=== PATIENT | male | born 1980 | race African-American/Black ===

== ENCOUNTER 2018-06-26 23:41 | Inpatient (IN) | payer OTHER ==
--- NOTE | 2018-06-27 00:04 | PDOC ---
History of Present Illness <Harsha Russell - Last Filed: 06/27/18 03:07> - General History Source: Patient Exam Limitations: No Limitations - History of Present Illness Initial Comments: 06/27/18 01:09 Mr. Ibarra is a 38 yo M with a hx of with a hx of aortic valve replacement (pt states its mechanical on December [address] Kane Inman at [facility]), HTN, seizures, and ESRD on hemodialysis through a catheter since 12/2017 ( missed his dialysis on Wednesday, last done //Wed schedule) presents to the emergency department with generalized aches with fevers and chills since yesterday. He states he has not eaten for 2 days and has had poor PO intake. He is poorly compliant with his HTN medications and ran out of some (unaware of which) without having a primary medical doctor. He missed his appointment for his AV fistula on his right arm. Endorses fever, chills, and generalized fatigue. Denies headaches, recent visual changes, FND, chest pain, SOB, abdominal pain, dysuria, hematuria, diarrhea, nausea, vomiting, and leg pain/ swelling. Allergies: NKDA Meds: labetalol 800 mg every 8 hours, hydralazine 100 mg TID, aspirin 81 mg, and famotidine. The other half of his medications is unknown and doesn't know them. He has been out of hydralazine for "weeks" and last took dilantin "months ago". Social hx: Endorses tobacco use and alcohol. <Dalton Campos - Last Filed: 06/27/18 03:24> - General Chief Complaint: SIRS, Suspected/Possible Stated Complaint: BODYACHES Time Seen by Provider: 06/27/18 00:04 Past History <Harsha Russell - Last Filed: 06/27/18 03:07> - Past Medical History Cardiac Disorders: Yes COPD: No Dialysis: Yes (,,WED) HTN: Yes Psychiatric Problems: Yes (PTSD) Seizures: Yes (epilepsy) - Surgical History Abdominal Surgery: Yes (2 hernia repair) Cardiac Surgery: Yes (VALVE REPLACEMENT) - Immunization History Immunization Up to Date: Yes - Suicide/Smoking/Psychosocial Hx Smoking History: Never smoked Number of Cigarettes Smoked Daily: 3 Hx Alcohol Use: No Drug/Substance Use Hx: No <Dalton Campos - Last Filed: 06/27/18 03:24> - Past Medical History Allergies/Adverse Reactions: Allergies Allergy/AdvReac Type Severity Reaction Status Date / Time No Known Allergies Allergy Verified 06/26/18 23:46 Home Medications: Ambulatory Orders Aspirin [ASA -] 81 mg PO DAILY 10/19/15 Hydrochlorothiazide [Hctz -] 25 mg PO DAILY #7 tablet 10/19/15 Lisinopril 10 mg PO DAILY #7 tablet 10/19/15 Phenytoin Na Extended [Dilantin -] 100 mg PO TID 10/19/15 Famotidine [Pepcid] 20 mg PO DAILY 06/27/18 Ferrous Sulfate [Iron] 325 mg PO 06/27/18 Hydralazine HCl 100 mg PO TID 06/27/18 Labetalol HCl [Normodyne -] 800 mg PO TID 06/27/18 Review of Systems - Review of Systems Able to Perform ROS?: Yes Constitutional: Yes: Chills, Diaphoresis, Fever, Weakness HEENTM: No: Recent change in vision, Ear Pain, Nose Pain, Throat Pain, Mouth Pain Respiratory: No: Cough, Shortness of Breath Cardiac (ROS): No: Chest Pain, Edema, Irregular Heart Rate, Lightheadedness, Palpitations, Syncope, Chest Tightness ABD/GI: No: Abd. Pain w/ defecation, Constipated, Diarrhea, Nausea, Rectal Bleeding, Vomiting, Tarry Stools : No: Burning, Dysuria, Flank Pain, Hematuria Musculoskeletal: No: Back Pain, Joint Pain, Neck Pain Integumentary: No: Bruising, Rash Neurological: Yes: Weakness. No: Headache, Numbness, Paresthesia, Tingling, Tremors, Ataxia, Dizziness Psychiatric: No: Stressors Endocrine: No: Increased Hunger Hematologic/Lymphatic: No: Anemia <Dalton Campos - Last Filed: 06/27/18 03:24> *Physical Exam - Vital Signs Last Vital Signs Temp Pulse Resp BP Pulse Ox 99.5 F 93 H 20 159/102 99 06/27/18 03:00 06/27/18 03:00 06/27/18 03:00 06/27/18 03:00 06/27/18 03:00 <Harsha Russell - Last Filed: 06/27/18 03:07> - Vital Signs Last Vital Signs Temp Pulse Resp BP Pulse Ox 99.3 F 94 H 18 189/124 100 06/26/18 23:42 06/26/18 23:42 06/26/18 23:42 06/26/18 23:42 06/26/18 23:42 - Physical Exam General Appearance: Yes: Nourished, Appropriately Dressed, Mild Distress HEENT: positive: EOMI, DAVID, Normal Voice, Symmetrical Neck: positive: Trachea midline. negative: Lymphadenopathy (R), Lymphadenopathy (L) Respiratory/Chest: positive: Lungs Clear, Normal Breath Sounds, Other (Has a surgical scar consistent with recent thoracotomy. Has a catheter inb the right upper chest for HD). negative: Chest Tender, Respiratory Distress, Accessory Muscle Use Cardiovascular: positive: Regular Rhythm, Regular Rate, S1, S2. negative: Systolic Murmur Vascular Pulses: Dorsalis-Pedis (R): 3+, Doralis-Pedis (L): 3+ Gastrointestinal/Abdominal: positive: Normal Bowel Sounds, Tender (diffusely tender) Lymphatic: negative: Adenopathy Musculoskeletal: positive: Normal Inspection. negative: CVA Tenderness Extremity: positive: Normal Capillary Refill, Normal Inspection, Normal Range of Motion. negative: Tender Integumentary: positive: Normal Color, Dry, Warm Neurologic: positive: lieutenant governor II-XII NML intact, Fully Oriented, Alert, Normal Mood/ Affect, Normal Response, Motor Strength 5/5 <Dalton Campos - Last Filed: 06/27/18 03:24> Heart Score/ECG Review - ECG Intrepretation Comment:: 06/27/18 02:12 ventricular rate is 91 bpm, SD is 126 ms, QRS 86 MS, qtC IS 479 MS. NORMAL sinus rhythm. t wave inversion V5-6 not changed from previous. Suspected LVH. <Dalton Campos - Last Filed: 06/27/18 03:24> ED Treatment Course - LABORATORY CBC & Chemistry Diagram: 06/27/18 00:40 06/27/18 01:22 - ADDITIONAL ORDERS Additional order review: Laboratory Results 06/27/18 06/27/18 06/27/18 01:49 01:22 01:22 PT with INR INR PTT (Actin FS) VBG pH POC VBG pCO2 POC VBG pO2 Mixed VBG HCO3 Sodium 138 Potassium 4.6 Chloride 103 Carbon Dioxide 24 Anion Gap 11 BUN 26 H Creatinine 3.8 H Creat Clearance w eGFR 18.11 Random Glucose 108 H Lactic Acid Calcium 8.2 L Total Bilirubin 1.2 H AST 15 ALT 12 L Alkaline Phosphatase 101 Creatine Kinase 94 Troponin I 0.03 C-Reactive Protein 12.1 H Total Protein 7.5 Albumin 3.1 L Urine Color Urine Appearance Urine pH Ur Specific Spring Urine Protein Urine Glucose (UA) Urine Ketones Urine Blood Urine Nitrite Urine Bilirubin Urine Urobilinogen Ur Leukocyte Esterase Urine WBC (Auto) Urine RBC (Auto) Ur Epithelial Cells Urine Bacteria Granular Casts Urine Mucus Urine Yeast Phenytoin 0.8 L Blood Type Antibody Screen 06/27/18 06/27/18 06/27/18 00:40 00:40 00:40 PT with INR INR PTT (Actin FS) VBG pH POC VBG pCO2 POC VBG pO2 Mixed VBG HCO3 Sodium Cancelled Potassium Cancelled Chloride Cancelled Carbon Dioxide Cancelled Anion Gap Cancelled BUN Cancelled Creatinine Cancelled Creat Clearance w eGFR Cancelled Random Glucose Cancelled Lactic Acid Calcium Cancelled Total Bilirubin Cancelled AST Cancelled ALT Cancelled Alkaline Phosphatase Cancelled Creatine Kinase Troponin I Cancelled C-Reactive Protein Total Protein Cancelled Albumin Cancelled Urine Color Urine Appearance Urine pH Ur Specific Spring Urine Protein Urine Glucose (UA) Urine Ketones Urine Blood Urine Nitrite Urine Bilirubin Urine Urobilinogen Ur Leukocyte Esterase Urine WBC (Auto) Urine RBC (Auto) Ur Epithelial Cells Urine Bacteria Granular Casts Urine Mucus Urine Yeast Phenytoin Blood Type O POSITIVE Antibody Screen Negative 06/27/18 06/27/18 06/27/18 00:40 00:30 00:30 PT with INR 13.50 H INR 1.19 H PTT (Actin FS) 33.6 VBG pH 7.52 H POC VBG pCO2 27.4 L POC VBG pO2 36.7 Mixed VBG HCO3 22.4 Sodium Potassium Chloride Carbon Dioxide Anion Gap BUN Creatinine Creat Clearance w eGFR Random Glucose Lactic Acid 1.3 Calcium Total Bilirubin AST ALT Alkaline Phosphatase Creatine Kinase Troponin I C-Reactive Protein Total Protein Albumin Urine Color Urine Appearance Urine pH Ur Specific Spring Urine Protein Urine Glucose (UA) Urine Ketones Urine Blood Urine Nitrite Urine Bilirubin Urine Urobilinogen Ur Leukocyte Esterase Urine WBC (Auto) Urine RBC (Auto) Ur Epithelial Cells Urine Bacteria Granular Casts Urine Mucus Urine Yeast Phenytoin Blood Type Antibody Screen 06/27/18 00:30 PT with INR INR PTT (Actin FS) VBG pH POC VBG pCO2 POC VBG pO2 Mixed VBG HCO3 Sodium Potassium Chloride Carbon Dioxide Anion Gap BUN Creatinine Creat Clearance w eGFR Random Glucose Lactic Acid Calcium Total Bilirubin AST ALT Alkaline Phosphatase Creatine Kinase Troponin I C-Reactive Protein Total Protein Albumin Urine Color Emily Urine Appearance Cloudy Urine pH 5.0 Ur Specific Spring 1.023 Urine Protein 2+ H Urine Glucose (UA) Negative Urine Ketones Trace H Urine Blood 2+ H Urine Nitrite Negative Urine Bilirubin Negative Urine Urobilinogen 2.0 Ur Leukocyte Esterase Negative Urine WBC (Auto) 3 Urine RBC (Auto) 14 Ur Epithelial Cells Rare Urine Bacteria Rare Granular Casts 23 Urine Mucus Rare Urine Yeast Few Phenytoin Blood Type Antibody Screen 06/27/18 00:40 RBC 4.17 MCV 90.1 MCHC 33.1 RDW 16.2 H MPV 8.1 Neutrophils % 87.4 H Lymphocytes % 5.5 L D Monocytes % 6.6 Eosinophils % 0.1 Basophils % 0.4 - Medications Given in the ED: ED Medications Discontinued Medications Generic Name Dose Route Start Last Admin Trade Name Leiq PRN Reason Stop Dose Admin Hydralazine HCl 25 mg 06/27/18 01:05 06/27/18 01:32 Apresoline - PO 06/27/18 01:06 25 mg ONCE ONE Administration Sodium Chloride 1,000 mls @ 1,000 mls/hr 06/27/18 00:14 06/27/18 01:09 Normal Saline - IV 06/27/18 01:13 1,000 mls/hr ASDIR STA Administration Labetalol HCl 10 mg 06/27/18 01:05 06/27/18 01:32 Normodyne Injection - IVPUSH 06/27/18 01:06 10 mg ONCE ONE Administration <Harsha Russell - Last Filed: 06/27/18 03:07> - LABORATORY CBC & Chemistry Diagram: 06/27/18 00:40 06/27/18 01:22 <Dalton Campos - Last Filed: 06/27/18 03:24> Medical Decision Making - Medical Decision Making 38 yo M with extensive medical hx presents with generalized aches and fever ddx: sepsis, ACS, CHF exacerbation, metabolic disturbance, PNA, pleuritis, pericarditis Initial vitals: Initial Vital Signs Temp Pulse Resp BP Pulse Ox 99.3 F 94 H 18 189/124 100 06/26/18 23:42 06/26/18 23:42 06/26/18 23:42 06/26/18 23:42 06/26/18 23:42 Work up: Laboratory Tests 06/27/18 06/27/18 06/27/18 00:30 00:30 00:30 WBC RBC Hgb Hct MCV MCH MCHC RDW Plt Count MPV Absolute Neuts (auto) Neutrophils % Lymphocytes % Monocytes % Eosinophils % Basophils % Nucleated RBC % ESR PT with INR INR PTT (Actin FS) VBG pH 7.52 H POC VBG pCO2 27.4 L POC VBG pO2 36.7 Mixed VBG HCO3 22.4 Sodium Potassium Chloride Carbon Dioxide Anion Gap BUN Creatinine Creat Clearance w eGFR Random Glucose Lactic Acid 1.3 Calcium Total Bilirubin AST ALT Alkaline Phosphatase Creatine Kinase Troponin I C-Reactive Protein Total Protein Albumin Urine Color Emily Urine Appearance Cloudy Urine pH 5.0 Ur Specific Spring 1.023 Urine Protein 2+ H Urine Glucose (UA) Negative Urine Ketones Trace H Urine Blood 2+ H Urine Nitrite Negative Urine Bilirubin Negative Urine Urobilinogen 2.0 Ur Leukocyte Esterase Negative Urine WBC (Auto) 3 Urine RBC (Auto) 14 Ur Epithelial Cells Rare Urine Bacteria Rare Granular Casts 23 Urine Mucus Rare Urine Yeast Few Phenytoin Blood Type Antibody Screen 06/27/18 06/27/18 06/27/18 00:40 00:40 00:40 WBC 11.6 H RBC 4.17 Hgb 12.5 Hct 37.6 D MCV 90.1 MCH 29.9 MCHC 33.1 RDW 16.2 H Plt Count 224 MPV 8.1 Absolute Neuts (auto) 10.1 H Neutrophils % 87.4 H Lymphocytes % 5.5 L D Monocytes % 6.6 Eosinophils % 0.1 Basophils % 0.4 Nucleated RBC % 0 ESR PT with INR 13.50 H INR 1.19 H PTT (Actin FS) 33.6 VBG pH POC VBG pCO2 POC VBG pO2 Mixed VBG HCO3 Sodium Cancelled Potassium Cancelled Chloride Cancelled Carbon Dioxide Cancelled Anion Gap Cancelled BUN Cancelled Creatinine Cancelled Creat Clearance w eGFR Cancelled Random Glucose Cancelled Lactic Acid Calcium Cancelled Total Bilirubin Cancelled AST Cancelled ALT Cancelled Alkaline Phosphatase Cancelled Creatine Kinase Troponin I C-Reactive Protein Total Protein Cancelled Albumin Cancelled Urine Color Urine Appearance Urine pH Ur Specific Spring Urine Protein Urine Glucose (UA) Urine Ketones Urine Blood Urine Nitrite Urine Bilirubin Urine Urobilinogen Ur Leukocyte Esterase Urine WBC (Auto) Urine RBC (Auto) Ur Epithelial Cells Urine Bacteria Granular Casts Urine Mucus Urine Yeast Phenytoin Blood Type Antibody Screen 06/27/18 06/27/18 06/27/18 00:40 00:40 01:22 WBC RBC Hgb Hct MCV MCH MCHC RDW Plt Count MPV Absolute Neuts (auto) Neutrophils % Lymphocytes % Monocytes % Eosinophils % Basophils % Nucleated RBC % ESR PT with INR INR PTT (Actin FS) VBG pH POC VBG pCO2 POC VBG pO2 Mixed VBG HCO3 Sodium Potassium Chloride Carbon Dioxide Anion Gap BUN Creatinine Creat Clearance w eGFR Random Glucose Lactic Acid Calcium Total Bilirubin AST ALT Alkaline Phosphatase Creatine Kinase Troponin I Cancelled C-Reactive Protein Total Protein Albumin Urine Color Urine Appearance Urine pH Ur Specific Spring Urine Protein Urine Glucose (UA) Urine Ketones Urine Blood Urine Nitrite Urine Bilirubin Urine Urobilinogen Ur Leukocyte Esterase Urine WBC (Auto) Urine RBC (Auto) Ur Epithelial Cells Urine Bacteria Granular Casts Urine Mucus Urine Yeast Phenytoin 0.8 L Blood Type O POSITIVE Antibody Screen Negative 06/27/18 06/27/18 06/27/18 01:22 01:22 01:49 WBC RBC Hgb Hct MCV MCH MCHC RDW Plt Count MPV Absolute Neuts (auto) Neutrophils % Lymphocytes % Monocytes % Eosinophils % Basophils % Nucleated RBC % ESR 58 H PT with INR INR PTT (Actin FS) VBG pH POC VBG pCO2 POC VBG pO2 Mixed VBG HCO3 Sodium 138 Potassium 4.6 Chloride 103 Carbon Dioxide 24 Anion Gap 11 BUN 26 H Creatinine 3.8 H Creat Clearance w eGFR 18.11 Random Glucose 108 H Lactic Acid Calcium 8.2 L Total Bilirubin 1.2 H AST 15 ALT 12 L Alkaline Phosphatase 101 Creatine Kinase 94 Troponin I 0.03 C-Reactive Protein 12.1 H Total Protein 7.5 Albumin 3.1 L Urine Color Urine Appearance Urine pH Ur Specific Spring Urine Protein Urine Glucose (UA) Urine Ketones Urine Blood Urine Nitrite Urine Bilirubin Urine Urobilinogen Ur Leukocyte Esterase Urine WBC (Auto) Urine RBC (Auto) Ur Epithelial Cells Urine Bacteria Granular Casts Urine Mucus Urine Yeast Phenytoin Blood Type Antibody Screen CXR shows no acute pathologies. Presence of sternotomy wires and no mechanical valve present on CXR. Likely received bovine valve. BP after admin of 10 mg of labetolol IV and 25 mg PO hydralazine was 166/96. 800 mg of labetolol PO was ordered which is part of his home dose. Labs are within normal limits except for the elevated creatinine and mildly elevated WBC. Transferred care to Dr. Russell <Dalton Campos - Last Filed: 06/27/18 03:24> *DC/Admit/Observation/Transfer - Discharge Dispostion Decision to Admit order: Yes <Harsha Russell - Last Filed: 06/27/18 03:07> <Dalton Campos - Last Filed: 06/27/18 03:24> Diagnosis at time of Disposition: Generalized weakness, Sepsis, Catheter-related bloodstream infection - Discharge Dispostion Condition at time of disposition: Guarded
[2018-06-27] MEDS ORDERED: SODIUM CHLORIDE 1,000 ML IV STA (00:14)
--- NOTE | 2018-06-27 00:39 | PDOC ---
Attending Attestation - Resident Resident Name: BethDalton - ED Attending Attestation I have performed the following: I have examined & evaluated the patient, The case was reviewed & discussed with the resident, I agree w/resident's findings & plan, Exceptions are as noted - HPI HPI: 06/27/18 00:34 38 yo male p/w complaint of fever and bodyaches -pt is a poor historian when it comes to his medical history and does not know all the medications he takes. He states he does not take any blood thinners He has a significant history of heart valve replacement with mechanical ?? valve ( they think it was the aortic valve done December 31 this year. He started dialysis for kidney failure also at that time. -he has h/o HTN for many years and has not been complaint with his medications. He also skipped his dialysis this Wednesday06/27/18 00:41 06/27/18 00:52 06/27/18 00:54 06/27/18 01:51 06/27/18 02:08 - Physicial Exam PE: 06/27/18 00:39 slender 38 yo male stating he hurts all over head ncat eyes sallie eomi neck supple lungs no crackles no rales appreciated chest left upper chest is dialysis port [facility] [id number] ,there is no appreciable murmer or click heard abd no rebound ext no edema neuro ambulatory, alert and conversant 06/27/18 00:55 06/27/18 00:56 - Medical Decision Making 06/27/18 02:03 ekg nsr !91 bpm, st and t wave abn with inverted t waves in V5,V6 neg troponin cbc mild leukocytosis,no anemia chemistries cr=3.8 , normal potassium cxr sternotomy wires, no mechanical valve seen BP came down to 166/96 and his oral temperature is 101.2 06/27/18 02:19 06/27/18 02:22
[2018-06-27 00:43] LABS: VENOUS PC02 27.4 mmHg (38-52); VENOUS PH 7.52 (7.32-7.42); VENOUS PO2 36.7 mmHg (28-48)
[2018-06-27 00:45] LABS: BASO % 0.4 % (0-2.0); EOS % 0.1 % (0-4.5); HEMATOCRIT 37.6 % (35.4-49); HEMOGLOBIN 12.5 GM/dL (11.7-16.9); LYMPH % 5.5 % (8-40); MCH 29.9 pg (25.7-33.7); MCHC 33.1 g/dl (32.0-35.9); MEAN CELL VOLUME 90.1 fl (80-96); MEAN PLT VOLUME 8.1 fl (7.5-11.1); MONO % 6.6 % (3.8-10.2); NEUT % 87.4 % (42.8-82.8); PLATELET COUNT 224 K/MM3 (134-434); RBC 4.17 M/mm3 (4.00-5.60); RDW 16.2 % (11.9-15.9); WHITE BLOOD COUNT 11.6 K/mm3 (4.0-10.0)
[2018-06-27 00:57] LABS: INR 1.19 (0.83-1.09); PROTHROMBIN TIME (PATIENT) 13.5 SEC (9.7-13.0)
[2018-06-27 00:57] LABS: URINE APPEARANCE CLOUDY; URINE BILIRUBIN NEGATIVE (<2.0 mg/dL); URINE COLOR AMBER; URINE GLUCOSE (UA) NEGATIVE (NEGATIVE); URINE KETONE TRACE (NEGATIVE); URINE LEUK ESTERASE NEGATIVE (NEGATIVE); URINE NITRITE NEGATIVE (NEGATIVE)
[2018-06-27 00:58] LABS: URINE PROTEIN 2+ (NEGATIVE)
[2018-06-27 00:59] LABS: EPI CELLS RARE /HPF (FEW); GRANULAR CASTS 23 /lpf; URINE BACTERIA RARE /hpf (NONE SEEN); URINE MUCUS RARE; YEAST FEW
[2018-06-27 01:00] LABS: ACTIVATED PTT 33.6 SECONDS (25.2-36.5)
[2018-06-27] MEDS ORDERED: LABETALOL HCL 5 MG/1 ML (100MG/20 ML VIAL) IVPUSH ONE (01:05)
[2018-06-27] MEDS ORDERED: hydrALAZINE HCL 25 MG TABLET (FP) PO ONE (01:05)
[2018-06-27] MEDS ORDERED: LABETALOL HCL 5 MG/1 ML (200MG/40ML VIAL) IVPB ONE (01:13)
[2018-06-27] MEDS ORDERED: hydrALAZINE HCL 25 MG TABLET (FP) ONE (01:13)
[2018-06-27 01:55] LABS: ALBUMIN 3.1 g/dl (3.4-5.0); ANION GAP 11 MMOL/L (8-16); BILIRUBIN,TOTAL 1.2 mg/dL (0.2-1.0); BLOOD UREA NITROGEN 26 mg/dL (7-18); CALCIUM 8.2 mg/dL (8.5-10.1); CHLORIDE 103 mmol/L (98-107); CO2 24 mmol/L (21-32); CREATININE 3.8 mg/dL (0.55-1.3); GLUCOSE,RANDOM 108 mg/dL (74-106); POTASSIUM 4.6 mmol/L (3.5-5.1); SGOT/AST 15 U/L (15-37); SGPT/ALT 12 U/L (13-61); SODIUM 138 mmol/L (136-145); TOT PROT 7.5 g/dl (6.4-8.2)
[2018-06-27] MEDS ORDERED: NITROGLYCERIN 2% OINTMENT - 1GM PACKET TD ONE (01:57)
[2018-06-27 01:58] LABS: ALK PHOS 101 U/L (45-117)
[2018-06-27] MEDS ORDERED: LABETALOL HCL 200 MG TABLET (FP) PO ONE ×2 (02:00→06:31)
[2018-06-27] MEDS ORDERED: VANCOMYCIN 1,000 MG in DEXTROSE 5%-WATER - 250 ML IVPB ONE (02:25)
[2018-06-27] MEDS ORDERED: PIPERACILLIN/TAZOB 4.5 GM 4.5 GM in DEXTROSE 5%-WATER 100 ML IVPB ONE (02:30)
[2018-06-27] MEDS ORDERED: ACETAMINOPHEN 1000 MG/100 ML VIAL (NON FORMULARY) IVPB ONE (02:37)
--- NOTE | 2018-06-27 02:37 | PN ---
Teaching Attending Note Name of Resident: Donte Marr ATTENDING PHYSICIAN STATEMENT I saw and evaluated the patient. I reviewed the resident's note and discussed the case with the resident. I agree with the resident's findings and plan as documented. SUBJECTIVE: Patient is a 38 year old man with PMH of aortic valve replacement, HTN, epilepsy , PTSD, tobacco use, and ESRD on hemodialysis through a catheter since 12/2017 ( missed his dialysis on Wednesday) presents to the ER with generalized aches, fevers and chills since yesterday. He states he has not eaten for 2 days and has had poor PO intake. He is poorly compliant with his HTN medications and ran out of some (unaware of which) and does not have a PCP. He missed his appointment for his AV fistula on his right arm. has not filled his prescriptions due to problems with his "insurance card". Denies headaches, photophobia, chest pain, SOB, abdominal pain, dysuria, diarrhea, nausea, or vomiting. OBJECTIVE: Alert and restless with generalized aches Vital Signs Period Temp Pulse Resp BP Sys/[place] Pulse Ox Last 24 Hr 99.3 F-101.2 F 94-99 17-22 166-217/96-130 100-100 HEENT: No Jaundice, eye redness or discharge, PERRLA, EOMI. Normocephalic, atraumatic. External ears are normal and hearing is grossly intact. No nasal discharge. Neck: Supple, no neck stiffness, nontender. No palpable adenopathy or thyromegaly. No JVD Chest: Good effort. Midline scar. Right chest permacath. Clear to auscultation and percussion. Heart: Regular. No S3 or rub; 2/6 MARCELINA Abdomen: Not distended, soft, nontender and no HSM. No rebound or guarding. Normoactive bowel sounds. Ext: Peripheral pulses intact. No leg edema. Skin: Warm and dry. No petechiae, rash or ecchymosis. Neuro: Alert. Oriented x3. CN 2-12 grossly intact. Sensation grossly intact in all four extremities and DTR are symmetric. Current Medications Generic Name Dose Route Start Last Admin Trade Name Freq PRN Reason Stop Dose Admin Vancomycin HCl 1,000 mg/ 250 mls @ 166.667 mls/hr 06/27/18 02:25 Dextrose IVPB 06/27/18 03:54 ONCE ONE Protocol Piperacillin Sod/Tazobactam 100 mls @ 200 mls/hr 06/27/18 02:30 Sod 4.5 gm/ Dextrose IVPB 06/27/18 02:59 ONCE ONE Protocol Home Medications Medication Instructions Recorded Aspirin [ASA -] 81 mg PO DAILY 10/19/15 Hydrochlorothiazide [Hctz -] 25 mg PO DAILY #7 tablet 10/19/15 Lisinopril 10 mg PO DAILY #7 tablet 10/19/15 Phenytoin Na Extended [Dilantin -] 100 mg PO TID 10/19/15 Famotidine [Pepcid] 20 mg PO DAILY 06/27/18 Ferrous Sulfate [Iron] 325 mg PO 06/27/18 Hydralazine HCl 100 mg PO TID 06/27/18 Labetalol HCl [Normodyne -] 800 mg PO TID 06/27/18 Abnormal Lab Results 06/27/18 06/27/18 06/27/18 00:30 00:30 00:40 WBC 11.6 H RDW 16.2 H Absolute Neuts (auto) 10.1 H Neutrophils % 87.4 H Lymphocytes % 5.5 L D PT with INR INR VBG pH 7.52 H POC VBG pCO2 27.4 L BUN Creatinine Random Glucose Calcium Total Bilirubin ALT C-Reactive Protein Albumin Urine Protein 2+ H Urine Ketones Trace H Urine Blood 2+ H Phenytoin 06/27/18 06/27/18 06/27/18 00:40 01:22 01:22 WBC RDW Absolute Neuts (auto) Neutrophils % Lymphocytes % PT with INR 13.50 H INR 1.19 H VBG pH POC VBG pCO2 BUN 26 H Creatinine 3.8 H Random Glucose 108 H Calcium 8.2 L Total Bilirubin 1.2 H ALT 12 L C-Reactive Protein Albumin 3.1 L Urine Protein Urine Ketones Urine Blood Phenytoin 0.8 L 06/27/18 01:49 WBC RDW Absolute Neuts (auto) Neutrophils % Lymphocytes % PT with INR INR VBG pH POC VBG pCO2 BUN Creatinine Random Glucose Calcium Total Bilirubin ALT C-Reactive Protein 12.1 H Albumin Urine Protein Urine Ketones Urine Blood Phenytoin ASSESSMENT AND PLAN: 1. ESRD with sepsis - Most likely due to hemodialysis catheter infection. Sepsis workup done. Started on IV vancomycin and zosyn. Will remove dialysis catheter immediately to avoid infecting his heart valve. Get ECHO to look for vegetations. Restart his oral antihypertensive drugs and ensure adequate dialysis fluid removal to address poorly controlled hypertension. DC HCTZ. Load with dilantin to optimize dilantin level. Get urine toxicology. Consult Nephrology and Vascular surgery. When stable, consider work up for secondary hypertension. Also reassess him to ascertain whether he is indeed stage 4 or 5 CKD - is he really in ESRD and does he need to be on dialysis?. Because, he is very muscular and his baseline creatinine "should" be higher - but even with history of missed hemodialysis treatments and inefficient catheter dialysis he is not severely acidotic (HCO3 24) and his HCT is great (37). 2. Tobacco Use We will provide patient all the necessary assistance to facilitate smoking cessation and prescribe Nicotine patch. 3. DVT prophylaxis - Heparin 5000u sq tid. 4. Advance directives - Full code
[2018-06-27] MEDS ORDERED: VANCOMYCIN 1 GRAM (PRE-DOCKED) 1,000 MG/250 ML BAG IVPB ONE ×2 (02:40→02:42)
[2018-06-27] MEDS ORDERED: ACETAMINOPHEN INJECTION 100 ML IVPB ONE (02:40)
[2018-06-27] MEDS ORDERED: PIPERACILLIN/TAZOB 4.5 GM 4.5 GM/100 ML BAG IVPB ONE (02:40)
--- NOTE | 2018-06-27 03:18 | PDOC ---
*Physical Exam - Vital Signs Last Vital Signs Temp Pulse Resp BP Pulse Ox 99.5 F 93 H 20 159/102 99 06/27/18 03:00 06/27/18 03:00 06/27/18 03:00 06/27/18 03:00 06/27/18 03:00 - Physical Exam General Appearance: Yes: Severe Distress HEENT: positive: EOMI, DAVID, Normal Voice. negative: Pharyngeal Erythema, Tonsillar Exudate, Nasal Congestion, Rhinorrhea Neck: positive: Normal Thyroid. negative: Carotid bruit, Lymphadenopathy (R), Lymphadenopathy (L) Respiratory/Chest: positive: Lungs Clear, Normal Breath Sounds, Rapid RR. negative: Chest Tender, Respiratory Distress, Accessory Muscle Use, Decreased Breath Sounds, Crackles, Rales, Rhonchi, Wheezing Cardiovascular: positive: Regular Rhythm, Regular Rate, S1, S2 Vascular Pulses: Dorsalis-Pedis (R): 2+, Doralis-Pedis (L): 2+ Gastrointestinal/Abdominal: positive: Normal Bowel Sounds, Distended. negative : Guarding, Rebound, Tenderness Musculoskeletal: positive: Normal Inspection. negative: CVA Tenderness Extremity: positive: Delayed Capillary Refill Integumentary: positive: Normal Color. negative: Jaundice Neurologic: positive: honey extractor II-XII NML intact, Fully Oriented, Alert Heart Score/ECG Review - Electrocardiogram EKG: Normal - Age Age: </= 45 - Troponin Troponin: </= normal limit - ECG Intrepretation Rhythm: Regular Rhythm - [place]: Normal - QRS Increased Voltage: Precordial Leads - ST and T Early Repolarization: No Non Specific ST-T Wave changes: No Comment:: 06/27/18 03:24 Inverted T waves in V5 nd V6 similar to old EKG from Oct 2015 - ECG Impressions Normal ECG: Yes Non-specific ST Elevation: No Ischemic Changes: No Bradycardia: No ED Treatment Course - LABORATORY CBC & Chemistry Diagram: 06/27/18 00:40 06/27/18 01:22 - ADDITIONAL ORDERS Additional order review: Laboratory Results 06/27/18 06/27/18 06/27/18 01:49 01:22 01:22 PT with INR INR PTT (Actin FS) VBG pH POC VBG pCO2 POC VBG pO2 Mixed VBG HCO3 Sodium 138 Potassium 4.6 Chloride 103 Carbon Dioxide 24 Anion Gap 11 BUN 26 H Creatinine 3.8 H Creat Clearance w eGFR 18.11 Random Glucose 108 H Lactic Acid Calcium 8.2 L Total Bilirubin 1.2 H AST 15 ALT 12 L Alkaline Phosphatase 101 Creatine Kinase 94 Troponin I 0.03 C-Reactive Protein 12.1 H Total Protein 7.5 Albumin 3.1 L Urine Color Urine Appearance Urine pH Ur Specific [place] Urine Protein Urine Glucose (UA) Urine Ketones Urine Blood Urine Nitrite Urine Bilirubin Urine Urobilinogen Ur Leukocyte Esterase Urine WBC (Auto) Urine RBC (Auto) Ur Epithelial Cells Urine Bacteria Granular Casts Urine Mucus Urine Yeast Phenytoin 0.8 L Blood Type Antibody Screen 06/27/18 06/27/18 06/27/18 00:40 00:40 00:40 PT with INR INR PTT (Actin FS) VBG pH POC VBG pCO2 POC VBG pO2 Mixed VBG HCO3 Sodium Cancelled Potassium Cancelled Chloride Cancelled Carbon Dioxide Cancelled Anion Gap Cancelled BUN Cancelled Creatinine Cancelled Creat Clearance w eGFR Cancelled Random Glucose Cancelled Lactic Acid Calcium Cancelled Total Bilirubin Cancelled AST Cancelled ALT Cancelled Alkaline Phosphatase Cancelled Creatine Kinase Troponin I Cancelled C-Reactive Protein Total Protein Cancelled Albumin Cancelled Urine Color Urine Appearance Urine pH Ur Specific [place] Urine Protein Urine Glucose (UA) Urine Ketones Urine Blood Urine Nitrite Urine Bilirubin Urine Urobilinogen Ur Leukocyte Esterase Urine WBC (Auto) Urine RBC (Auto) Ur Epithelial Cells Urine Bacteria Granular Casts Urine Mucus Urine Yeast Phenytoin Blood Type O POSITIVE Antibody Screen Negative 06/27/18 06/27/18 06/27/18 00:40 00:30 00:30 PT with INR 13.50 H INR 1.19 H PTT (Actin FS) 33.6 VBG pH 7.52 H POC VBG pCO2 27.4 L POC VBG pO2 36.7 Mixed VBG HCO3 22.4 Sodium Potassium Chloride Carbon Dioxide Anion Gap BUN Creatinine Creat Clearance w eGFR Random Glucose Lactic Acid 1.3 Calcium Total Bilirubin AST ALT Alkaline Phosphatase Creatine Kinase Troponin I C-Reactive Protein Total Protein Albumin Urine Color Urine Appearance Urine pH Ur Specific [place] Urine Protein Urine Glucose (UA) Urine Ketones Urine Blood Urine Nitrite Urine Bilirubin Urine Urobilinogen Ur Leukocyte Esterase Urine WBC (Auto) Urine RBC (Auto) Ur Epithelial Cells Urine Bacteria Granular Casts Urine Mucus Urine Yeast Phenytoin Blood Type Antibody Screen 06/27/18 00:30 PT with INR INR PTT (Actin FS) VBG pH POC VBG pCO2 POC VBG pO2 Mixed VBG HCO3 Sodium Potassium Chloride Carbon Dioxide Anion Gap BUN Creatinine Creat Clearance w eGFR Random Glucose Lactic Acid Calcium Total Bilirubin AST ALT Alkaline Phosphatase Creatine Kinase Troponin I C-Reactive Protein Total Protein Albumin Urine Color Emily Urine Appearance Cloudy Urine pH 5.0 Ur Specific [place] 1.023 Urine Protein 2+ H Urine Glucose (UA) Negative Urine Ketones Trace H Urine Blood 2+ H Urine Nitrite Negative Urine Bilirubin Negative Urine Urobilinogen 2.0 Ur Leukocyte Esterase Negative Urine WBC (Auto) 3 Urine RBC (Auto) 14 Ur Epithelial Cells Rare Urine Bacteria Rare Granular Casts 23 Urine Mucus Rare Urine Yeast Few Phenytoin Blood Type Antibody Screen 06/27/18 00:40 RBC 4.17 MCV 90.1 MCHC 33.1 RDW 16.2 H MPV 8.1 Neutrophils % 87.4 H Lymphocytes % 5.5 L D Monocytes % 6.6 Eosinophils % 0.1 Basophils % 0.4 - RADIOLOGY Chest X-Ray Result: No Infiltrates - Medications Given in the ED: ED Medications Discontinued Medications Generic Name Dose Route Start Last Admin Trade Name Leiq PRN Reason Stop Dose Admin Hydralazine HCl 25 mg 06/27/18 01:05 06/27/18 01:32 Apresoline - PO 06/27/18 01:06 25 mg ONCE ONE Administration Sodium Chloride 1,000 mls @ 1,000 mls/hr 06/27/18 00:14 06/27/18 01:09 Normal Saline - IV 06/27/18 01:13 1,000 mls/hr ASDIR STA Administration Labetalol HCl 10 mg 06/27/18 01:05 06/27/18 01:32 Normodyne Injection - IVPUSH 06/27/18 01:06 10 mg ONCE ONE Administration Medical Decision Making - Medical Decision Making 06/27/18 03:13 Received patient as a sign out. Oral fever - 101.8 WBC - 11.6 CRP - 12.1 ESR - 58 Patient is septic. Lungs - CTAB, clear CXR - unlikely PNA No neck pain, rigidity - Unlikely meningitis. No Abdominal pain - unlikely gastric infection. Urine LE and nitrite negative - unlikely urosepsis. Infection can be from recent heart valve, but more likely from his central catheter which has been in place longer than it should be. Most likely source - Catheter related infection. Plan: Patient will be given Vanc, Zosyn, Acetaminophen, and Admitted to Dr. Kothari's service. 06/27/18 03:19 *DC/Admit/Observation/Transfer Diagnosis at time of Disposition: Generalized weakness, Sepsis, Catheter-related bloodstream infection - Discharge Dispostion Condition at time of disposition: Guarded Decision to Admit order: Yes - Referrals - Patient Instructions - Post Discharge Activity
[2018-06-27] MEDS: PHENYTOIN NA EXTENDED 100 MG CAPSULE (FP) PO SCH ×2 (04:03→06:18)
--- NOTE | 2018-06-27 04:20 | HP ---
CHIEF COMPLAINT: Fevers, Weakness PCP: None (due to insurance issues as per girlfriend) HISTORY OF PRESENT ILLNESS: 38 y/o M with PMHx of ESRD on HD (T,,Wed), Aortic Valve Replacement, HTN, Seizures, PTSD, presents alongside his girlfriend, for not feeling well. Part of the history was provided by the girlfriend present at bedside as the patient was lethargic. For the past 3 days, patient has experienced weakness, subjective fevers, multiple loose BM's, chills and whole body aches. This is the first time patient has experienced these symptoms since having the catheter placed earlier this year. They have tried Aleve at home without relief and decided to visit the ED. He has not been able to tolerate diet in the past 2 days and only clear liquids. His last BM was here in the ED. Patient says the catheter has not been changed since placement. He denies any hx of catheter associated infection/bacteremia, any purlent or bloody discharge from the catheter site, or any other recent surgeries. Patient denies any sick contacts, recent travel or medication changes. Patient missed his hemodialysis this past Wednesday, due to over sleeping. He did , however complete his HD on . ER course was notable for: (1) (2) (3) Recent Travel: Denies PAST MEDICAL HISTORY: ESRD on HD via catheter (,,Wed; since 12/26) Aortic Valve Replacement (?Mechanical Valve done on 12/31/[address] Inman at 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 Residence: Apartment, lives with Girlfriends, son and girlfriends uncle Ambulation: On his own without assistance Family History: Mother: DM Father: Schizophrenia Allergies No Known Allergies Allergy (Verified 06/26/18 23:46) HOME MEDICATIONS: Home Medications Medication Instructions Recorded Aspirin [ASA -] 81 mg PO DAILY 10/19/15 Hydrochlorothiazide [Hctz -] 25 mg PO DAILY #7 tablet 10/19/15 Lisinopril 10 mg PO DAILY #7 tablet 10/19/15 Phenytoin Na Extended [Dilantin -] 100 mg PO TID 10/19/15 Famotidine [Pepcid] 20 mg PO DAILY 06/27/18 Ferrous Sulfate [Iron] 325 mg PO 06/27/18 Hydralazine HCl 100 mg PO TID 06/27/18 Labetalol HCl [Normodyne -] 800 mg PO TID 06/27/18 REVIEW OF SYSTEMS CONSTITUTIONAL: Present: fever, chills, generalized weakness, Decreased PO Intake Absent: diaphoresis, malaise, loss of appetite, weight change HEENT: Absent: rhinorrhea, nasal congestion, throat pain, throat swelling, difficulty swallowing, mouth swelling, ear pain, eye pain, visual changes CARDIOVASCULAR: Absent: chest pain, syncope, palpitations, irregular heart rate, lightheadedness , peripheral edema RESPIRATORY: Absent: cough, shortness of breath, dyspnea with exertion, orthopnea, wheezing, stridor, hemoptysis GASTROINTESTINAL: Absent: abdominal pain, abdominal distension, nausea, vomiting, diarrhea, constipation, melena, hematochezia GENITOURINARY: Absent: dysuria, frequency, urgency, hesitancy, hematuria, flank pain, genital pain MUSCULOSKELETAL: Absent: myalgia, arthralgia, joint swelling, back pain, neck pain SKIN: Absent: rash, itching, pallor HEMATOLOGIC/IMMUNOLOGIC: Absent: easy bleeding, easy bruising, lymphadenopathy, frequent infections ENDOCRINE: Absent: unexplained weight gain, unexplained weight loss, heat intolerance, cold intolerance NEUROLOGIC: Absent: headache, focal weakness or paresthesias, dizziness, unsteady gait, seizure, mental status changes, bladder or bowel incontinence PSYCHIATRIC: Absent: anxiety, depression, suicidal or homicidal ideation, hallucinations. PHYSICAL EXAMINATION Vital Signs - 24 hr 06/26/18 06/27/18 06/27/18 23:42 01:49 02:21 Temperature 99.3 F 101.2 F H Pulse Rate 94 H Pulse Rate [ 97 H 99 H Apical] Respiratory 18 17 22 Rate Blood Pressure 189/124 Blood Pressure 217/130 166/96 [Left Arm] O2 Sat by Pulse 100 100 100 Oximetry (%) 06/27/18 03:00 Temperature 99.5 F Pulse Rate Pulse Rate [ 93 H Apical] Respiratory 20 Rate Blood Pressure Blood Pressure 159/102 [Left Arm] O2 Sat by Pulse 99 Oximetry (%) GENERAL: Lethargic but easily arousable to voice, in no acute distress. HEAD: NCAT EYES: EOMI THROAT: Oropharynx clear without exudates. Moist mucous membranes. NECK: No JVD CHEST: Catheter placed in the Right Upper chest without any active drainage or surrounding erythema. LUNGS: Breath sounds equal, clear to auscultation bilaterally. No wheezes. HEART: Regular rate and rhythm, normal S1 and S2 without murmur. ABDOMEN: Multiple scars present abdomen. Soft, nontender, not distended, normoactive bowel sounds, no guarding. MUSCULOSKELETAL: No CVA tenderness. EXTREMITIES: 2+ pulses, No calf tenderness. No peripheral edema. SKIN: Warm, dry, no rashes or lesions noted. Laboratory Results - last 24 hr 06/27/18 06/27/18 06/27/18 00:30 00:30 00:30 WBC RBC Hgb Hct MCV MCH MCHC RDW Plt Count MPV Absolute Neuts (auto) Neutrophils % Lymphocytes % Monocytes % Eosinophils % Basophils % Nucleated RBC % ESR PT with INR INR PTT (Actin FS) VBG pH 7.52 H POC VBG pCO2 27.4 L POC VBG pO2 36.7 Mixed VBG HCO3 22.4 Sodium Potassium Chloride Carbon Dioxide Anion Gap BUN Creatinine Creat Clearance w eGFR Random Glucose Lactic Acid 1.3 Calcium Total Bilirubin AST ALT Alkaline Phosphatase Creatine Kinase Troponin I C-Reactive Protein Total Protein Albumin Urine Color Emily Urine Appearance Cloudy Urine pH 5.0 Ur Specific [place] 1.023 Urine Protein 2+ H Urine Glucose (UA) Negative Urine Ketones Trace H Urine Blood 2+ H Urine Nitrite Negative Urine Bilirubin Negative Urine Urobilinogen 2.0 Ur Leukocyte Esterase Negative Urine WBC (Auto) 3 Urine RBC (Auto) 14 Ur Epithelial Cells Rare Urine Bacteria Rare Granular Casts 23 Urine Mucus Rare Urine Yeast Few Phenytoin Blood Type Antibody Screen 06/27/18 06/27/18 06/27/18 00:40 00:40 00:40 WBC 11.6 H RBC 4.17 Hgb 12.5 Hct 37.6 D MCV 90.1 MCH 29.9 MCHC 33.1 RDW 16.2 H Plt Count 224 MPV 8.1 Absolute Neuts (auto) 10.1 H Neutrophils % 87.4 H Lymphocytes % 5.5 L D Monocytes % 6.6 Eosinophils % 0.1 Basophils % 0.4 Nucleated RBC % 0 ESR PT with INR 13.50 H INR 1.19 H PTT (Actin FS) 33.6 VBG pH POC VBG pCO2 POC VBG pO2 Mixed VBG HCO3 Sodium Cancelled Potassium Cancelled Chloride Cancelled Carbon Dioxide Cancelled Anion Gap Cancelled BUN Cancelled Creatinine Cancelled Creat Clearance w eGFR Cancelled Random Glucose Cancelled Lactic Acid Calcium Cancelled Total Bilirubin Cancelled AST Cancelled ALT Cancelled Alkaline Phosphatase Cancelled Creatine Kinase Troponin I C-Reactive Protein Total Protein Cancelled Albumin Cancelled Urine Color Urine Appearance Urine pH Ur Specific [place] Urine Protein Urine Glucose (UA) Urine Ketones Urine Blood Urine Nitrite Urine Bilirubin Urine Urobilinogen Ur Leukocyte Esterase Urine WBC (Auto) Urine RBC (Auto) Ur Epithelial Cells Urine Bacteria Granular Casts Urine Mucus Urine Yeast Phenytoin Blood Type Antibody Screen 06/27/18 06/27/18 06/27/18 00:40 00:40 01:22 WBC RBC Hgb Hct MCV MCH MCHC RDW Plt Count MPV Absolute Neuts (auto) Neutrophils % Lymphocytes % Monocytes % Eosinophils % Basophils % Nucleated RBC % ESR PT with INR INR PTT (Actin FS) VBG pH POC VBG pCO2 POC VBG pO2 Mixed VBG HCO3 Sodium Potassium Chloride Carbon Dioxide Anion Gap BUN Creatinine Creat Clearance w eGFR Random Glucose Lactic Acid Calcium Total Bilirubin AST ALT Alkaline Phosphatase Creatine Kinase Troponin I Cancelled C-Reactive Protein Total Protein Albumin Urine Color Urine Appearance Urine pH Ur Specific [place] Urine Protein Urine Glucose (UA) Urine Ketones Urine Blood Urine Nitrite Urine Bilirubin Urine Urobilinogen Ur Leukocyte Esterase Urine WBC (Auto) Urine RBC (Auto) Ur Epithelial Cells Urine Bacteria Granular Casts Urine Mucus Urine Yeast Phenytoin 0.8 L Blood Type O POSITIVE Antibody Screen Negative 06/27/18 06/27/18 06/27/18 01:22 01:22 01:49 WBC RBC Hgb Hct MCV MCH MCHC RDW Plt Count MPV Absolute Neuts (auto) Neutrophils % Lymphocytes % Monocytes % Eosinophils % Basophils % Nucleated RBC % ESR 58 H PT with INR INR PTT (Actin FS) VBG pH POC VBG pCO2 POC VBG pO2 Mixed VBG HCO3 Sodium 138 Potassium 4.6 Chloride 103 Carbon Dioxide 24 Anion Gap 11 BUN 26 H Creatinine 3.8 H Creat Clearance w eGFR 18.11 Random Glucose 108 H Lactic Acid Calcium 8.2 L Total Bilirubin 1.2 H AST 15 ALT 12 L Alkaline Phosphatase 101 Creatine Kinase 94 Troponin I 0.03 C-Reactive Protein 12.1 H Total Protein 7.5 Albumin 3.1 L Urine Color Urine Appearance Urine pH Ur Specific [place] Urine Protein Urine Glucose (UA) Urine Ketones Urine Blood Urine Nitrite Urine Bilirubin Urine Urobilinogen Ur Leukocyte Esterase Urine WBC (Auto) Urine RBC (Auto) Ur Epithelial Cells Urine Bacteria Granular Casts Urine Mucus Urine Yeast Phenytoin Blood Type Antibody Screen ASSESSMENT/PLAN: 38 y/o M with PMHx of ESRD on HD (T,,Sat), Aortic Valve Replacement, presents for not feeling well for the past 3 days. On Physical exam, he is noted to have a TMax of 101.2, BP of 217/130 --> 159/102, and a dialysis catheter placed in the upper Right chest. On labs, he is found to have WBC 11.6, BUN 26, Cr 3.8, UA positive for 2+ protein, 2+ blood and trace Ketones. EKG was found to have T Wave inversions in v5-v6 that were not changed from previous EKG. CXR was found to have no acute chest pathology on my read (Pending Official read). Patient will be admitted to Med-surg. 1. Sepsis - Likely due to Cather infection - TMax 101.2, HR 99, WBC 11.6 - CXR: No acute chest pathology on my read (Pending Official read) - Blood and Urine Cultures pending - Given 1L Bolus NS in ED; Hold fluids as patient is hypertensive in ED and pending Dialysis today - Given Vanco and Zosyn in the ED; Continue Vancomycin 1gm daily - Tylenol 1000mg given in ED - ID (Dr. Sanchez) consulted - ECHO ordered to look for vegetations 2. Catheter dependent Hemodialysis - Vascular Surgery (Dr. Peterson) consulted to remove and possibly replace catheter as patient has hx of heart valve replacement 3. ESRD - Nephrology (Dr. Gamez) consulted 4. HTN - 217/130 --> 159/102 - Given Labetalol, Hydralazine and Nitro paste in the ED - Will restart home BP meds once med rec'ed, Called [facility] as this is his listed pharmacy however they do not have a record of him picking up medications from them - Hold HCTZ 5. Hx of Seizures - Dilantin 500mg x2 loading dose ordered as Drug level was 0.8 - UTox pending 6. Tobacco dependence Nicoderm 7mg patch 7. FEN - PO Fluids - Lytes wnl - NPO pending surgical procedure 8. PPx - DVT: Heparin 5000 Units TID Dispo: Admit to Med-Surg, Will need med-rec Visit type - Emergency Visit Emergency Visit: Yes ED Registration Date: 06/27/18 Care time: The patient presented to the Emergency Department on the above date and was hospitalized for further evaluation of their emergent condition. - New Patient This patient is new to me today: Yes Date on this admission: 06/27/18 - Critical Care Critical Care patient: No Hospitalist Screening - Colonoscopy Questionnaire Colonoscopy Questionnaire: Colonoscopy Questionnaire - Patient: 50 - 75 years old and never had a screening colonoscopy: Unknown History of colon or rectal polyps, or CA: Unknown History of IBD, Crohn's disease or UC: Unknown History of abdominal radiation therapy as a child: Unknown - Relative: 1 with colon or rectal CA, or polyps at age 60 or younger: Unknown Colon or rectal CA diagnosed at age 45 or younger: Unknown Multiple relatives with colon or rectal CA: Unknown - Outcome: Screening Result: Negative Screen
[2018-06-27 04:21] VITALS: BMI 22.0
[2018-06-27] MEDS: HEPARIN NA (PORCINE) 5,000 UNITS/ML 1ML VIAL SQ SCH ×2 (06:21→13:53)
[2018-06-27 07:04] LABS: BASO % 0.6 % (0-2.0); EOS % 0.1 % (0-4.5); HEMATOCRIT 38.3 % (35.4-49); HEMOGLOBIN 12.5 GM/dL (11.7-16.9); LYMPH % 6.5 % (8-40); MCH 29.6 pg (25.7-33.7); MCHC 32.6 g/dl (32.0-35.9); MEAN CELL VOLUME 90.7 fl (80-96); MEAN PLT VOLUME 8.1 fl (7.5-11.1); MONO % 6.5 % (3.8-10.2); NEUT % 86.3 % (42.8-82.8); PLATELET COUNT 200 K/MM3 (134-434); RBC 4.22 M/mm3 (4.00-5.60); WHITE BLOOD COUNT 10.3 K/mm3 (4.0-10.0)
[2018-06-27 07:22] LABS: ALBUMIN 2.8 g/dl (3.4-5.0); ANION GAP 10 MMOL/L (8-16); BILIRUBIN,TOTAL 1.1 mg/dL (0.2-1.0); BLOOD UREA NITROGEN 28 mg/dL (7-18); CALCIUM 8.3 mg/dL (8.5-10.1); CHLORIDE 103 mmol/L (98-107); CO2 23 mmol/L (21-32); CREATININE 3.8 mg/dL (0.55-1.3); GLUCOSE,RANDOM 116 mg/dL (74-106); MAGNESIUM 1.7 mg/dL (1.8-2.4); PHOSPHOROUS 3.3 mg/dL (2.5-4.9); POTASSIUM 4.5 mmol/L (3.5-5.1); SGOT/AST 18 U/L (15-37); SGPT/ALT 10 U/L (13-61); SODIUM 136 mmol/L (136-145); TOT PROT 7.1 g/dl (6.4-8.2)
[2018-06-27 07:23] LABS: ALK PHOS 96 U/L (45-117)
--- NOTE | 2018-06-27 09:05 | PN ---
Progress Note (short form) - Note Progress Note: ID consult dictated imp/reccd 38 year old HTN, ESRD/HD with recent AVR December 2017-[facility], PC placed at that time fevers and myalgia since Wednesday missed HD on Wednesday poorly compliant with HTN med Diarrhea since Wednesday +Headache no abdominal or chest pain no cough or SOB vancomycin and zosyn in ED this am pain at the PC site, serous drainage at the PC site suspect PC infection, in setting of recent AVR R/O bacteremia r/o endocarditis-?bioAVR would remove PC f/u blood cultures sent from ED repeat vancomycin level at HD today and redose by levels continue zosyn ECHO cardiology stool studies d/w Dr Gamez d/w Dr Peterson d/w Dr Brady Problem List - Problems (1) Sepsis Code(s): A41.9 - SEPSIS, UNSPECIFIED ORGANISM (2) Catheter-related bloodstream infection Code(s): T80.211A - BLOODSTREAM INFECTION DUE TO CENTRAL VENOUS CATHETER, INIT (3) S/P AVR Code(s): Z95.2 - PRESENCE OF PROSTHETIC HEART VALVE (4) ESRD (end stage renal disease) on dialysis Code(s): N18.6 - END STAGE RENAL DISEASE; Z99.2 - DEPENDENCE ON RENAL DIALYSIS
[2018-06-27] MEDS ORDERED: LIDOCAINE HCL 1%, 10 MG/ML (50 mL VIAL) SQ ONE (09:41)
--- NOTE | 2018-06-27 09:56 | EKG ---
Test Reason : Blood Pressure : / mmHG Vent. Rate : 091 BPM Atrial Rate : 091 BPM P-R Int : 126 ms QRS Dur : 086 ms QT Int : 390 ms P-R-T Axes : -01 053 146 degrees QTc Int : 479 ms NORMAL SINUS RHYTHM PROLONGED QT ABNORMAL ECG WHEN COMPARED WITH ECG OF 19-OCT-2015 15:14, T WAVE VARIATION Confirmed by NICHOLAS CROWLEY MD ([id number]) on 06/27/2018 9:56:17 AM Referred By: Confirmed By:NICHOLAS CROWLEY MD
[2018-06-27] MEDS ORDERED: NICOTINE 7 MG/24 HOURS TOPICAL PATCH TD SCH (10:00)
[2018-06-27] MEDS ORDERED: PT OWN MED DRAWER 7, Y5N ONE (10:09)
[2018-06-27] MEDS ORDERED: PIPERACILLIN/TAZOBACTAM 2.25 GM VIAL IVPB ONE ×2 (10:11→17:57)
[2018-06-27] MEDS: PIPERACILLIN/TAZOB 2.25 GM 2.25 GM in DEXTROSE 5%-WATER - 50 ML IVPB SCH ×2 (10:24→18:00)
[2018-06-27] MEDS ORDERED: RANITIDINE HCL 150 MG TABLET (FP) PO SCH (10:30)
--- NOTE | 2018-06-27 10:57 | PN ---
Physical Exam: SUBJECTIVE: Patient seen and examined at bedside this morning. He admits to pain "all over" his body. Right sided perma-cath noted over upper chest, non erythematous, however draining slight yellowish discharge, and site is tender to palpation. Admits malaise, chills, and diarrhea. OBJECTIVE: Vital Signs Period Temp Pulse Resp BP Sys/[place] Pulse Ox Last 24 Hr 98.7 F-101.2 F 80-99 17-22 134-217/93-130 99-100 GENERAL: The patient is sleepy, agitated, in some distress. HEAD: Normocephalic atraumatic EYES: PERRLA, sclera anicteric, conjunctiva clear. ENT: Oropharynx clear without exudates, moist mucous membranes. NECK: Supple without lymphadenopathy LUNGS: Breath sounds equal, clear to auscultation bilaterally, no wheezes, no crackles, no accessory muscle use. HEART: Regular rate and rhythm, S1, S2 without murmur, rub or gallop. ABDOMEN: Soft, nontender, nondistended, normoactive bowel sounds, no guarding, no rebound, no hepatosplenomegaly. EXTREMITIES: 2+ pulses, warm, well-perfused, no edema. SKIN: Perma-cath noted over right upper chest. No erythema surrounding the catheter insertion site. Slight yellow drainage noted. Tender to palpation. Laboratory Results - last 24 hr 06/27/18 06/27/18 06/27/18 00:30 00:30 00:30 WBC RBC Hgb Hct MCV MCH MCHC RDW Plt Count MPV Absolute Neuts (auto) Neutrophils % Lymphocytes % Monocytes % Eosinophils % Basophils % Nucleated RBC % ESR PT with INR INR PTT (Actin FS) VBG pH 7.52 H POC VBG pCO2 27.4 L POC VBG pO2 36.7 Mixed VBG HCO3 22.4 Sodium Potassium Chloride Carbon Dioxide Anion Gap BUN Creatinine Creat Clearance w eGFR Random Glucose Lactic Acid 1.3 Calcium Phosphorus Magnesium Total Bilirubin AST ALT Alkaline Phosphatase Creatine Kinase Troponin I C-Reactive Protein Total Protein Albumin Urine Color Emily Urine Appearance Cloudy Urine pH 5.0 Ur Specific [place] 1.023 Urine Protein 2+ H Urine Glucose (UA) Negative Urine Ketones Trace H Urine Blood 2+ H Urine Nitrite Negative Urine Bilirubin Negative Urine Urobilinogen 2.0 Ur Leukocyte Esterase Negative Urine WBC (Auto) 3 Urine RBC (Auto) 14 Ur Epithelial Cells Rare Urine Bacteria Rare Granular Casts 23 Urine Mucus Rare Urine Yeast Few Phenytoin Blood Type Antibody Screen 06/27/18 06/27/18 06/27/18 00:40 00:40 00:40 WBC 11.6 H RBC 4.17 Hgb 12.5 Hct 37.6 D MCV 90.1 MCH 29.9 MCHC 33.1 RDW 16.2 H Plt Count 224 MPV 8.1 Absolute Neuts (auto) 10.1 H Neutrophils % 87.4 H Lymphocytes % 5.5 L D Monocytes % 6.6 Eosinophils % 0.1 Basophils % 0.4 Nucleated RBC % 0 ESR PT with INR 13.50 H INR 1.19 H PTT (Actin FS) 33.6 VBG pH POC VBG pCO2 POC VBG pO2 Mixed VBG HCO3 Sodium Cancelled Potassium Cancelled Chloride Cancelled Carbon Dioxide Cancelled Anion Gap Cancelled BUN Cancelled Creatinine Cancelled Creat Clearance w eGFR Cancelled Random Glucose Cancelled Lactic Acid Calcium Cancelled Phosphorus Magnesium Total Bilirubin Cancelled AST Cancelled ALT Cancelled Alkaline Phosphatase Cancelled Creatine Kinase Troponin I C-Reactive Protein Total Protein Cancelled Albumin Cancelled Urine Color Urine Appearance Urine pH Ur Specific [place] Urine Protein Urine Glucose (UA) Urine Ketones Urine Blood Urine Nitrite Urine Bilirubin Urine Urobilinogen Ur Leukocyte Esterase Urine WBC (Auto) Urine RBC (Auto) Ur Epithelial Cells Urine Bacteria Granular Casts Urine Mucus Urine Yeast Phenytoin Blood Type Antibody Screen 06/27/18 06/27/18 06/27/18 00:40 00:40 01:22 WBC RBC Hgb Hct MCV MCH MCHC RDW Plt Count MPV Absolute Neuts (auto) Neutrophils % Lymphocytes % Monocytes % Eosinophils % Basophils % Nucleated RBC % ESR PT with INR INR PTT (Actin FS) VBG pH POC VBG pCO2 POC VBG pO2 Mixed VBG HCO3 Sodium Potassium Chloride Carbon Dioxide Anion Gap BUN Creatinine Creat Clearance w eGFR Random Glucose Lactic Acid Calcium Phosphorus Magnesium Total Bilirubin AST ALT Alkaline Phosphatase Creatine Kinase Troponin I Cancelled C-Reactive Protein Total Protein Albumin Urine Color Urine Appearance Urine pH Ur Specific [place] Urine Protein Urine Glucose (UA) Urine Ketones Urine Blood Urine Nitrite Urine Bilirubin Urine Urobilinogen Ur Leukocyte Esterase Urine WBC (Auto) Urine RBC (Auto) Ur Epithelial Cells Urine Bacteria Granular Casts Urine Mucus Urine Yeast Phenytoin 0.8 L Blood Type O POSITIVE Antibody Screen Negative 0906/27/18 06/27/18 01:22 01:22 01:49 WBC RBC Hgb Hct MCV MCH MCHC RDW Plt Count MPV Absolute Neuts (auto) Neutrophils % Lymphocytes % Monocytes % Eosinophils % Basophils % Nucleated RBC % ESR 58 H PT with INR INR PTT (Actin FS) VBG pH POC VBG pCO2 POC VBG pO2 Mixed VBG HCO3 Sodium 138 Potassium 4.6 Chloride 103 Carbon Dioxide 24 Anion Gap 11 BUN 26 H Creatinine 3.8 H Creat Clearance w eGFR 18.11 Random Glucose 108 H Lactic Acid Calcium 8.2 L Phosphorus Magnesium Total Bilirubin 1.2 H AST 15 ALT 12 L Alkaline Phosphatase 101 Creatine Kinase 94 Troponin I 0.03 C-Reactive Protein 12.1 H Total Protein 7.5 Albumin 3.1 L Urine Color Urine Appearance Urine pH Ur Specific [place] Urine Protein Urine Glucose (UA) Urine Ketones Urine Blood Urine Nitrite Urine Bilirubin Urine Urobilinogen Ur Leukocyte Esterase Urine WBC (Auto) Urine RBC (Auto) Ur Epithelial Cells Urine Bacteria Granular Casts Urine Mucus Urine Yeast Phenytoin Blood Type Antibody Screen 06/27/18 06/27/18 06:10 06:10 WBC 10.3 H RBC 4.22 Hgb 12.5 Hct 38.3 MCV 90.7 MCH 29.6 MCHC 32.6 RDW 16.0 H Plt Count 200 MPV 8.1 Absolute Neuts (auto) 8.9 H Neutrophils % 86.3 H Lymphocytes % 6.5 L Monocytes % 6.5 Eosinophils % 0.1 Basophils % 0.6 Nucleated RBC % 0 ESR PT with INR INR PTT (Actin FS) VBG pH POC VBG pCO2 POC VBG pO2 Mixed VBG HCO3 Sodium 136 Potassium 4.5 Chloride 103 Carbon Dioxide 23 Anion Gap 10 BUN 28 H Creatinine 3.8 H Creat Clearance w eGFR 18.11 Random Glucose 116 H Lactic Acid Calcium 8.3 L Phosphorus 3.3 Magnesium 1.7 L Total Bilirubin 1.1 H AST 18 ALT 10 L Alkaline Phosphatase 96 Creatine Kinase Troponin I C-Reactive Protein Total Protein 7.1 Albumin 2.8 L Urine Color Urine Appearance Urine pH Ur Specific [place] Urine Protein Urine Glucose (UA) Urine Ketones Urine Blood Urine Nitrite Urine Bilirubin Urine Urobilinogen Ur Leukocyte Esterase Urine WBC (Auto) Urine RBC (Auto) Ur Epithelial Cells Urine Bacteria Granular Casts Urine Mucus Urine Yeast Phenytoin Blood Type Antibody Screen Active Medications Generic Name Dose Route Start Last Admin Trade Name Freq PRN Reason Stop Dose Admin Aspirin 81 mg 06/27/18 10:30 Asa - PO DAILY JOSELYN Heparin Sodium (Porcine) 5,000 unit 06/27/18 06:00 06/27/18 06:21 Heparin - SQ 5,000 unit TID JOSELYN Administration Vancomycin HCl 1,000 mg/ 250 mls @ 200 mls/hr 06/28/18 05:00 Dextrose IVPB 06/28/18 06:14 ONCE ONE Protocol Piperacillin Sod/Tazobactam 50 mls @ 100 mls/hr 06/27/18 10:00 06/27/18 10:24 Sod 2.25 gm/ Dextrose IVPB 100 mls/hr Q8H-IV JOSELYN Administration Protocol Labetalol HCl 800 mg 06/27/18 14:00 Normodyne - PO TID JOSELYN Nicotine 7 mg 06/27/18 10:00 06/27/18 10:27 Nicoderm Patch - TD 7 mg DAILY JOSELYN Administration Non-Formulary Medication 20 mg 06/27/18 10:30 Famotidine [Pepcid] PO DAILY JOSELYN Non-Formulary Medication 325 mg 06/27/18 10:30 Ferrous Sulfate [Iron] PO BID JOSELYN Non-Formulary Medication 100 mg 06/27/18 14:00 Hydralazine Hcl [Hydralazine Hcl] PO TID JOSELYN Phenytoin Sodium 100 mg 06/27/18 14:00 Dilantin - PO TID JOSELYN Chest Xray ASSESSMENT/PLAN: Patient is a 38 year old male with history of ESRD (HD T, Th, Wed), aortic valve repalcement, seizures, HTN presents with complaint of malaise, subjective fevers, diarrhea. Admitted for sepsis likely secondary to catheter infection. Sepsis -Likely secondary to perma-cath infection -WBC 10.3 afebrile at 98.7 -Vascular surgery consult (Dr. Peterson) appreciated: Permacath was removed at bedside today. Catheter tip sent for cultures. -F/U Blood cultures -F/U Urine cultures -ID consult (Dr. Sanchez) appreciated: -Cardiology consult -F/U cardiac ECHO ESRD -Patient has missed Wednesday HD as he overslept. Last HD was 06/23/2018 -Nephrology consult (Dr. Gamez) appreciated Seizures -Reinstate Dilantin 10mg PO TID HTN -Reinstate Labetalol 800mg PO TID Hydralazine 100mg PO TID Amlodipine 10mg PO QD HLD -Reinstate Lipitor 80mg QHS FEN -No IV fluids, encourage judicious PO fluid intake -Follow CMP -NPO pending surgical shiley catheter placement for dialysis. Prophylaxis -Heparin 5000units subq TID Disposition: Continue care in medical-surgical floor
[2018-06-27] MEDS: ASPIRIN 81 MG CHEWABLE TABLETS PO SCH ×2 (11:17→12:33)
[2018-06-27] MEDS ORDERED: FERROUS SO4 325 MG TABLET (FP) PO SCH (11:30)
--- NOTE | 2018-06-27 11:48 | PN ---
Progress Note (short form) - Note Progress Note: VAscular Surgery Pt seen and examined. PC removed from right IJ. dressing placed. Will be on stand by if pt needs shiley cath today. Jonatan Peterson DO
[2018-06-27] MEDS ORDERED: ACETAMINOPHEN 325 MG TABLET (FP) PO PRN (13:43)
--- NOTE | 2018-06-27 13:52 | CON.CARD ---
Consult Consult Specialty:: Cardiology Reason for Consultation:: Fever - History of Present Illness History of Present Illness: History was obtained from [facility] EMR and Pt. 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 Intraoperative PEPE showed EF 30%. CT chest POD 1 showed: "There is residual dissection in the aortic arch and extending into all arch vessels. Dissection involves the proximal right common carotid artery, entire visualized left common carotid artery and proximal left subclavian artery. The aortic arch measures about 35 mm. The proximal descending aorta measures 31 mm. At the diaphragm the aorta measures about 25 mm. The dissection flap extends throughout the descending aorta and into the abdomen." Hospital course was complicated by cardiogenic shock, respiratory and renal failure and he required PEG, Trach and was started on HD via a Rt HD catheter. HD is performed at [facility] and last HD was . He is admitted with fever body aches and drainage from HD cath site. He also is complaining of mid sternal chest pain. HD catheter is removed. - History Source History Provided By: Patient, Medical Record - Alcohol/Substance Use Hx Alcohol Use: No - Smoking History Smoking history: Never smoked Aproximately how many cigarettes per day: 3 Home Medications - Allergies Allergies/Adverse Reactions: Allergies Allergy/AdvReac Type Severity Reaction Status Date / Time No Known Allergies Allergy Verified 06/26/18 23:46 - Home Medications Home Medications: Ambulatory Orders Aspirin [ASA -] 81 mg PO DAILY 10/19/15 Phenytoin Na Extended [Dilantin -] 100 mg PO TID 10/19/15 Amlodipine Besylate [Norvasc -] 10 mg PO DAILY #30 tablet 06/27/18 Atorvastatin Ca [Lipitor] 80 mg PO HS #30 tab 06/27/18 Famotidine [Pepcid] 20 mg PO DAILY 06/27/18 Ferrous Sulfate [Iron] 325 mg PO BID 06/27/18 Hydralazine HCl 100 mg PO TID 06/27/18 Labetalol HCl [Normodyne -] 800 mg PO TID 06/27/18 Review of Systems - Review of Systems Constitutional: reports: Fever, Lethargy, Malaise, Weakness HENT: reports: No Symptoms Neck: reports: No Symptoms Cardiovascular: reports: Chest Pain, Shortness of Breath. denies: Palpitations Gastrointestinal: denies: Abdominal Pain, Bloating Genitourinary: reports: No Symptoms Breasts: reports: No Symptoms Reported Musculoskeletal: denies: Back Pain Vital Signs: Vital Signs Temperature 100 F H 06/27/18 12:58 Pulse Rate 88 06/27/18 09:28 Respiratory Rate 20 06/27/18 09:28 Blood Pressure 155/108 06/27/18 09:28 O2 Sat by Pulse Oximetry (%) 99 06/27/18 09:00 Constitutional: Yes: Well Nourished, Anxious, Moderate Distress Eyes: Yes: Conjunctiva Clear, EOM Intact HENT: Yes: Atraumatic, Normocephalic Neck: Yes: Supple, Trachea Midline Respiratory: Yes: Regular, CTA Bilaterally Gastrointestinal: Yes: Normal Bowel Sounds, Soft Cardiovascular: Yes: Regular Rate and Rhythm JVD: No Carotid Bruit: No PMI: Non-Displaced Heart Sounds: Yes: S1, S2 Murmur: No: Systolic Murmur, Diastolic Murmur Edema: No - Other Data Labs, Other Data: CBC, BMP 06/27/18 06:10 06/27/18 06:10 INR, PTT INR 1.19 (0.83-1.09) H 06/27/18 00:40 Troponin, BNP 06/27/18 06/27/18 00:40 01:22 Troponin I Cancelled 0.03 Troponin, BNP 06/27/18 06/27/18 00:40 01:22 Troponin I Cancelled 0.03 NSR LVH with repol abnormality. 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 Intraoperative PEPE showed EF 30%. Hospital course was complicated by cardiogenic shock, respiratory and renal failure and he required PEG, Trach and was started on HD via a Rt HD catheter. Admitted with fever and now chest pain. -Given history with current chest pain syndrome would recommend CT chest with contrast to exclude enlarging dissection or aortic hematoma -Will need access for HD following Contrast. -Transfer to [facility] CCU for BP control and further workup. [facility] CCU attending at [facility]
[2018-06-27] MEDS ORDERED: LABETALOL HCL 200 MG TABLET (FP) PO SCH ×2 (14:00)
[2018-06-27] MEDS ORDERED: hydrALAZINE HCL 50 MG TABLET (FP) PO SCH (14:00)
[2018-06-27] MEDS ORDERED: PHENYTOIN NA EXTENDED 100 MG CAPSULE (FP) PO SCH (14:00)
--- NOTE | 2018-06-27 14:14 | ECHO ---
Name: ELEANOR KENNEDY Exam:Adult Echocardiogram Study Date: 06/27/2018 12:49 PM Age: 38 yrs Reason For Study: hx of heart replacement Height: 71 in Weight: 158 lb BSA: 1.9 m2 MMode/2D Measurements & Calculations IVSd: 1.4 cm Ao root diam: 4.1 cm LVIDd: 4.9 cm LA dimension: 4.0 cm LVIDs: 4.1 cm ACS: 1.3 cm LVPWd: 1.7 cm IVSs: 1.6 cm LVPWs: 1.8 cm EDV(Teich): 112.3 ml ESV(Derianich): 73.1 ml LVOT diam: 2.0 cm Doppler Measurements & Calculations MV E max nnamdi: 73.3 cm/sec Ao V2 max: 125.2 cm/sec MV A max nnamdi: 77.2 cm/sec Ao max P.3 mmHg MV E/A: 0.95 Ao V2 mean: 83.0 cm/sec Ao mean P.3 mmHg Ao V2 VTI: 18.1 cm YG(I,D): 2.2 cm2 YG(V,D): 2.2 cm2 LV V1 max P.1 mmHg MR max nnamdi: 307.2 cm/sec LV V1 mean P.6 mmHg MR max P.8 mmHg LV V1 max: 87.9 cm/sec LV V1 mean: 59.8 cm/sec LV V1 VTI: 12.6 cm SV(LVOT): 39.7 ml TR max nnamdi: 233.5 cm/sec TR max P.9 mmHg RVSP(TR): 31.9 mmHg Med Peak E' Nnamdi: 4.3 cm/sec RAP systole: 10.0 mmHg Med E/e': 17.1 Lat Peak E' Nnamdi: 3.6 cm/sec Lat E/e': 20.3 Procedure The study was technically adequate with some images being suboptimal in quality. Left Ventricle The left ventricle is normal in size. There is moderate concentric left ventricular hypertrophy. Left ventricular systolic function is moderate to severely reduced. Ejection Fraction = 30-35%. Grade I di astolic dysfunction, (abnormal relaxation pattern). Septal motion is consistent with post-operative state. Right Ventricle The right ventricle is normal in size and function. Atria The left atrium is mildly dilated. The right atrium is mildly dilated. Mitral Valve The mitral valve is normal in structure and function. There is mild mitral regurgitation. Tricuspid Valve The tricuspid valve is not well visualized, but is grossly normal. There is mild tricuspid regurgitat ion. Right ventricular systolic pressure is 35 mmhg. Aortic Valve There is mild aortic valve thickening. The aortic valve opens well. The aortic valve is trileaflet. T race aortic regurgitation. Pulmonic Valve The pulmonic valve is not well visualized. Great Vessels Mild aortic root dilatation. Patient has h/o ascending aortic replacement with resuspension of aortic valve. Pericardium/Pleura There is no pericardial effusion. Interpretation Summary In comparison to intraoperative PEPE performed 12/2017 with LVEF 30%, no significant change in LVEF is seen. The left ventricle is normal in size. There is moderate concentric left ventricular hypertrophy. The right ventricle is normal in size and function. Trace aortic regurgitation. There is mild tricuspid regurgitation. Septal motion is consistent with post-operative state. The left atrium is mildly dilated. The right atrium is mildly dilated. Grade I diastolic dysfunction, (abnormal relaxation pattern). Patient has h/o ascending aortic replacement with resuspension of aortic valve In comparison to intraoperative PEPE performed 12/2017 with LVEF 30%, no significant change in LVEF is seen. Left ventricular systolic function is moderate to severely reduced. Khris Sky MD 06/27/2018 02:14 PM
--- NOTE | 2018-06-27 14:51 | CONS ---
DATE OF CONSULTATION: DATE OF DICTATION: 06/27/2018 REQUESTING PHYSICIAN: Hospitalist service. HISTORY: The patient is an extremely poor historian and extremely uncooperative. History is both from the patient and the chart. He is a 38-year-old man with a history of hypertension, seizure disorder, end-stage renal disease on dialysis. He apparently in December of this year had an aortic valve replacement. Suspicion is that maybe this was a bioprosthetic valve as he is not on any anticoagulation. He reports being very poorly compliant with his hypertensive medicines. He missed his dialysis on Wednesday. He reports having fevers since Wednesday, not feeling well and reports having stools starting on Wednesday, nonbloody. He has had the Perma-Cath in place since December. He presented to the emergency room with these complaints and had fever of 101.2. Concern was for Perma-Cath infection. He was given vancomycin and Zosyn. I am asked to further evaluate him. PAST MEDICAL HISTORY: Notable for aortic valve replacement done on December [address] Inman at [facility], hypertension, seizure disorder, end-stage renal disease on dialysis via Perma-Cath. PAST SURGICAL HISTORY: Notable for hernia repair and the aortic valve replacement as well as Perma-Cath placement. Apparently, he had a failed attempt at a fistula. SOCIAL HISTORY: He smokes 3 cigarettes daily. Uses marijuana. Denies alcohol use. He is currently not working. He lives with his girlfriend and his son. He denies any sick contacts or any travel. FAMILY HISTORY: Notable for diabetes and schizophrenia. ALLERGIES: No known drug allergies. MEDICATIONS: As an outpatient include aspirin, hydrochlorothiazide, lisinopril, phenytoin, Pepcid, ferrous sulfate, hydralazine, and labetalol. REVIEW OF SYSTEMS: He reports myalgia and fevers. He basically reports he does not feel well. PHYSICAL EXAMINATION: Vital Signs: Temperature 99.9, T-max 101.2, pulse 88, blood pressure 155/108, respiratory rate 20, saturating 99% on room air. HEENT: He is normocephalic. Eyes are anicteric. He has no conjunctival hemorrhages. Neck: Supple. Lungs: Clear to auscultation. Heart: Regular rate and rhythm. He has a 2/6 systolic ejection murmur. Skin: He has a well-healed midline incision. He has a keloid along his abdomen. Of note, his Perma-Cath site is tender to touch and has some yellow, serous drainage. Abdomen: Soft and nontender. Extremities: Without edema. DIAGNOSTIC DATA: Chest x-ray shows a prominent mediastinum with sternal sutures right IJ line. No pleural effusions. He has central congestion. In summary, this is a 38-year-old man admitted with fever, end-stage renal disease on dialysis. He has pain at the Perma-Cath site. Suspect Perma-Cath infection in the setting of a recent aortic valve replacement. Rule out bacteremia. Rule out endocarditis. Would remove the Perma-Cath. Would follow up blood cultures sent from the emergency room. Repeat vancomycin level later today. Redose by levels. Continue Zosyn. Would obtain an echocardiogram. Cardiology to evaluate. Would obtain Steri-Strips. The case was discussed with , Dr. Peterson, and Dr. Brady. Further recommendations to follow. ANUPAMA AVILES M.D. [id number]
--- NOTE | 2018-06-27 14:57 | CONSULT ---
Consult Consult Specialty:: Nephrology Reason for Consultation:: ESRD - History of Present Illness Chief Complaint: fever, generalized aches and pain from permacath site History of Present Illness: Pt is a 38 year old male with pmhx of ESRD, aortic valve replacement, aoritc aneurysm, HTN, non compliance, multi drug abuse, and epilepsy who presents to the ER complaining of generalized aches and pains. He also complains of fevers and chills. He has had decreased PO intake. His last HD session was on . He missed his HD session on Wednesday. He was noted to have discharge from the permacath site. I was called by ID today and informed about the patients status. Permacath was removed. He does make urine. He denies shortness of breath. I called his surgical corsetier and pt had been showing some signs of renal recovery however he has not been compliant with medications. He does not take any of his BP meds. He has missed his referals to vascular surgery as outpt. - History Source History Provided By: Patient, Medical Record - Past Medical History DIAGNOSTIC CARDIAC SONOGRAPHER: Yes: Seizure Cardio/Vascular: Yes: HTN, Other (aoritc valve replacement) Pulmonary: Yes: Other Renal/: Yes: Renal Failure, Hemodialysis - Alcohol/Substance Use Hx Alcohol Use: No - Smoking History Smoking history: Never smoked Aproximately how many cigarettes per day: 3 Home Medications - Allergies Allergies/Adverse Reactions: Allergies Allergy/AdvReac Type Severity Reaction Status Date / Time No Known Allergies Allergy Verified 06/26/18 23:46 - Home Medications Home Medications: Ambulatory Orders Aspirin [ASA -] 81 mg PO DAILY 10/19/15 Phenytoin Na Extended [Dilantin -] 100 mg PO TID 10/19/15 Amlodipine Besylate [Norvasc -] 10 mg PO DAILY #30 tablet 06/27/18 Atorvastatin Ca [Lipitor] 80 mg PO HS #30 tab 06/27/18 Famotidine [Pepcid] 20 mg PO DAILY 06/27/18 Ferrous Sulfate [Iron] 325 mg PO BID 06/27/18 Hydralazine HCl 100 mg PO TID 06/27/18 Labetalol HCl [Normodyne -] 800 mg PO TID 06/27/18 Family Disease History - Family Disease History Family History: Denies Review of Systems - Review of Systems Constitutional: reports: Chills, Fever, Malaise Eyes: reports: No Symptoms HENT: reports: No Symptoms Neck: reports: No Symptoms Cardiovascular: reports: No Symptoms Respiratory: reports: No Symptoms Gastrointestinal: reports: No Symptoms Genitourinary: reports: No Symptoms Musculoskeletal: reports: No Symptoms Neurological: reports: No Symptoms Endocrine: reports: No Symptoms Hematology/Lymphatic: reports: No Symptoms Physical Exam Vital Signs: Vital Signs Temperature 100 F H 06/27/18 12:58 Pulse Rate 88 06/27/18 09:28 Respiratory Rate 20 06/27/18 09:28 Blood Pressure 155/108 06/27/18 09:28 O2 Sat by Pulse Oximetry (%) 99 06/27/18 13:00 Constitutional: Yes: Calm Eyes: Yes: Conjunctiva Clear HENT: Yes: Atraumatic Neck: Yes: Other (multiple scars) Cardiovascular: Yes: Murmur, S1, S2 Respiratory: Yes: CTA Bilaterally, Other (discharge from permacath site) Gastrointestinal: Yes: Soft Renal/: Yes: WNL Musculoskeletal: Yes: WNL Edema: No Integumentary: Yes: Tattoos Neurological: Yes: Oriented Psychiatric: Yes: Oriented Labs: CBC, BMP 06/27/18 06:10 06/27/18 06:10 Laboratory Tests 06/27/18 06/27/18 06/27/18 00:30 00:40 01:22 WBC 11.6 H Hgb 12.5 Plt Count 224 Sodium 138 Potassium 4.6 Chloride 103 Carbon Dioxide 24 Anion Gap 11 BUN 26 H Creatinine 3.8 H Phosphorus Urine Protein 2+ H Urine Blood 2+ H 06/27/18 06/27/18 06:10 06:10 WBC 10.3 H Hgb 12.5 Plt Count 200 Sodium 136 Potassium 4.5 Chloride 103 Carbon Dioxide 23 Anion Gap 10 BUN 28 H Creatinine 3.8 H Phosphorus 3.3 Urine Protein Urine Blood Imaging - Results Chest X-ray: Report Reviewed Problem List - Problems (1) Bacteremia Code(s): R78.81 - BACTEREMIA (2) Aortic dissection Code(s): I71.00 - DISSECTION OF UNSPECIFIED SITE OF AORTA (3) ESRD (end stage renal disease) on dialysis Code(s): N18.6 - END STAGE RENAL DISEASE; Z99.2 - DEPENDENCE ON RENAL DIALYSIS (4) Sepsis Code(s): A41.9 - SEPSIS, UNSPECIFIED ORGANISM (5) Hypertension Code(s): I10 - ESSENTIAL (PRIMARY) HYPERTENSION Qualifiers: Hypertension type: essential hypertension Qualified Code(s): I10 - Essential (primary) hypertension Assessment/Plan Current Medications Generic Name Dose Route Start Last Admin Trade Name Freq PRN Reason Stop Dose Admin Acetaminophen 650 mg 06/27/18 13:43 06/27/18 13:53 Tylenol - PO 650 mg Q6H PRN Administration Fever Or Pain Aspirin 81 mg 06/27/18 10:30 06/27/18 12:33 Asa - PO 81 mg DAILY JOSELYN Administration Ferrous Sulfate 325 mg 06/27/18 11:30 06/27/18 12:34 Feosol - PO 325 mg BID JOSELYN Administration Heparin Sodium (Porcine) 5,000 unit 06/27/18 06:00 06/27/18 13:53 Heparin - SQ 5,000 unit TID JOSELYN Administration Hydralazine HCl 100 mg 06/27/18 14:00 06/27/18 13:53 Apresoline - PO 100 mg TID JOSELYN Administration Vancomycin HCl 1,000 mg/ 250 mls @ 200 mls/hr 06/28/18 05:00 Dextrose IVPB 06/28/18 06:14 ONCE ONE Protocol Piperacillin Sod/Tazobactam 50 mls @ 100 mls/hr 06/27/18 10:00 06/27/18 10:24 Sod 2.25 gm/ Dextrose IVPB 100 mls/hr Q8H-IV JOSELYN Administration Protocol Labetalol HCl 200 mg 06/27/18 14:00 06/27/18 13:53 Normodyne - PO 200 mg TID JOSELYN Administration Nicotine 7 mg 06/27/18 10:00 06/27/18 10:27 Nicoderm Patch - TD 7 mg DAILY JOSELYN Administration Phenytoin Sodium 100 mg 06/27/18 14:00 06/27/18 13:53 Dilantin - PO 100 mg TID JOSELYN Administration Ranitidine HCl 150 mg 06/27/18 10:30 06/27/18 12:34 Zantac - PO 150 mg DAILY JOSELYN Administration Impression 1. ESRD 2. HTN 3. aortic dissection 4. aortic valve replacement 5. epilepsy 6. non compliance 7. multi drug abuse (cocaine and PCP) 8. sepsis 9. bacteremia Plan - remove permacath - start abx - cont to follow cultures - hold off placing a shiley for now. Pt has stable electrolytes and is not fluid overloaded. He is making urine. Monitor off of dialysis. - check vanco levels - monitor bp - resume home meds - check urine tox - cardio eval - vascular surgery eval - will follow - discussed with medical team - discussed with ID - called primary surgical corsetier and discussed care Dr Gamez
[2018-06-27 15:12] VITALS: BP 131/82; PULSE 91; TEMP 99.5
--- NOTE | 2018-06-27 15:43 | DS ---
Physical Exam: SUBJECTIVE: Patient seen and examined at bedside. He admits to pain "all over" his body. Right sided perma-cath was removed at bedside from upper chest. Non erythematous, however draining slight yellowish discharge, and site is tender to palpation. Admits malaise, subjective fevers, chills, and diarrhea. OBJECTIVE: Vital Signs Period Temp Pulse Resp BP Sys/[place] Pulse Ox Last 24 Hr 98.7 F-101.2 F 80-99 17-22 131-217/82-130 99-100 PHYSICAL EXAM GENERAL: The patient is sleepy, agitated, in some distress. HEAD: Normocephalic atraumatic EYES: PERRLA, sclera anicteric, conjunctiva clear. ENT: Oropharynx clear without exudates, moist mucous membranes. NECK: Supple without lymphadenopathy LUNGS: Breath sounds equal, clear to auscultation bilaterally, no wheezes, no crackles, no accessory muscle use. HEART: Regular rate and rhythm, S1, S2 without murmur, rub or gallop. ABDOMEN: Soft, nontender, nondistended, normoactive bowel sounds, no guarding, no rebound, no hepatosplenomegaly. EXTREMITIES: 2+ pulses, warm, well-perfused, no edema. SKIN: Former Perma-cath site over right upper chest bandaged. No erythema surrounding the former catheter insertion site. Slight yellow drainage was noted when catheter was present. Tender to palpation. LABS Laboratory Results - last 24 hr 06/27/18 06/27/18 06/27/18 00:30 00:30 00:30 WBC RBC Hgb Hct MCV MCH MCHC RDW Plt Count MPV Absolute Neuts (auto) Neutrophils % Lymphocytes % Monocytes % Eosinophils % Basophils % Nucleated RBC % ESR PT with INR INR PTT (Actin FS) VBG pH 7.52 H POC VBG pCO2 27.4 L POC VBG pO2 36.7 Mixed VBG HCO3 22.4 Sodium Potassium Chloride Carbon Dioxide Anion Gap BUN Creatinine Creat Clearance w eGFR Random Glucose Lactic Acid 1.3 Calcium Phosphorus Magnesium Total Bilirubin AST ALT Alkaline Phosphatase Creatine Kinase Troponin I C-Reactive Protein Total Protein Albumin Urine Color Emily Urine Appearance Cloudy Urine pH 5.0 Ur Specific Selby 1.023 Urine Protein 2+ H Urine Glucose (UA) Negative Urine Ketones Trace H Urine Blood 2+ H Urine Nitrite Negative Urine Bilirubin Negative Urine Urobilinogen 2.0 Ur Leukocyte Esterase Negative Urine WBC (Auto) 3 Urine RBC (Auto) 14 Ur Epithelial Cells Rare Urine Bacteria Rare Granular Casts 23 Urine Mucus Rare Urine Yeast Few Phenytoin Blood Type Antibody Screen 06/27/18 06/27/18 06/27/18 00:40 00:40 00:40 WBC 11.6 H RBC 4.17 Hgb 12.5 Hct 37.6 D MCV 90.1 MCH 29.9 MCHC 33.1 RDW 16.2 H Plt Count 224 MPV 8.1 Absolute Neuts (auto) 10.1 H Neutrophils % 87.4 H Lymphocytes % 5.5 L D Monocytes % 6.6 Eosinophils % 0.1 Basophils % 0.4 Nucleated RBC % 0 ESR PT with INR 13.50 H INR 1.19 H PTT (Actin FS) 33.6 VBG pH POC VBG pCO2 POC VBG pO2 Mixed VBG HCO3 Sodium Cancelled Potassium Cancelled Chloride Cancelled Carbon Dioxide Cancelled Anion Gap Cancelled BUN Cancelled Creatinine Cancelled Creat Clearance w eGFR Cancelled Random Glucose Cancelled Lactic Acid Calcium Cancelled Phosphorus Magnesium Total Bilirubin Cancelled AST Cancelled ALT Cancelled Alkaline Phosphatase Cancelled Creatine Kinase Troponin I C-Reactive Protein Total Protein Cancelled Albumin Cancelled Urine Color Urine Appearance Urine pH Ur Specific Selby Urine Protein Urine Glucose (UA) Urine Ketones Urine Blood Urine Nitrite Urine Bilirubin Urine Urobilinogen Ur Leukocyte Esterase Urine WBC (Auto) Urine RBC (Auto) Ur Epithelial Cells Urine Bacteria Granular Casts Urine Mucus Urine Yeast Phenytoin Blood Type Antibody Screen 06/27/18 06/27/18 06/27/18 00:40 00:40 01:22 WBC RBC Hgb Hct MCV MCH MCHC RDW Plt Count MPV Absolute Neuts (auto) Neutrophils % Lymphocytes % Monocytes % Eosinophils % Basophils % Nucleated RBC % ESR PT with INR INR PTT (Actin FS) VBG pH POC VBG pCO2 POC VBG pO2 Mixed VBG HCO3 Sodium Potassium Chloride Carbon Dioxide Anion Gap BUN Creatinine Creat Clearance w eGFR Random Glucose Lactic Acid Calcium Phosphorus Magnesium Total Bilirubin AST ALT Alkaline Phosphatase Creatine Kinase Troponin I Cancelled C-Reactive Protein Total Protein Albumin Urine Color Urine Appearance Urine pH Ur Specific Selby Urine Protein Urine Glucose (UA) Urine Ketones Urine Blood Urine Nitrite Urine Bilirubin Urine Urobilinogen Ur Leukocyte Esterase Urine WBC (Auto) Urine RBC (Auto) Ur Epithelial Cells Urine Bacteria Granular Casts Urine Mucus Urine Yeast Phenytoin 0.8 L Blood Type O POSITIVE Antibody Screen Negative 06/27/18 06/27/18 06/27/18 01:22 01:22 01:49 WBC RBC Hgb Hct MCV MCH MCHC RDW Plt Count MPV Absolute Neuts (auto) Neutrophils % Lymphocytes % Monocytes % Eosinophils % Basophils % Nucleated RBC % ESR 58 H PT with INR INR PTT (Actin FS) VBG pH POC VBG pCO2 POC VBG pO2 Mixed VBG HCO3 Sodium 138 Potassium 4.6 Chloride 103 Carbon Dioxide 24 Anion Gap 11 BUN 26 H Creatinine 3.8 H Creat Clearance w eGFR 18.11 Random Glucose 108 H Lactic Acid Calcium 8.2 L Phosphorus Magnesium Total Bilirubin 1.2 H AST 15 ALT 12 L Alkaline Phosphatase 101 Creatine Kinase 94 Troponin I 0.03 C-Reactive Protein 12.1 H Total Protein 7.5 Albumin 3.1 L Urine Color Urine Appearance Urine pH Ur Specific Selby Urine Protein Urine Glucose (UA) Urine Ketones Urine Blood Urine Nitrite Urine Bilirubin Urine Urobilinogen Ur Leukocyte Esterase Urine WBC (Auto) Urine RBC (Auto) Ur Epithelial Cells Urine Bacteria Granular Casts Urine Mucus Urine Yeast Phenytoin Blood Type Antibody Screen 06/27/18 06/27/18 06:10 06:10 WBC 10.3 H RBC 4.22 Hgb 12.5 Hct 38.3 MCV 90.7 MCH 29.6 MCHC 32.6 RDW 16.0 H Plt Count 200 MPV 8.1 Absolute Neuts (auto) 8.9 H Neutrophils % 86.3 H Lymphocytes % 6.5 L Monocytes % 6.5 Eosinophils % 0.1 Basophils % 0.6 Nucleated RBC % 0 ESR PT with INR INR PTT (Actin FS) VBG pH POC VBG pCO2 POC VBG pO2 Mixed VBG HCO3 Sodium 136 Potassium 4.5 Chloride 103 Carbon Dioxide 23 Anion Gap 10 BUN 28 H Creatinine 3.8 H Creat Clearance w eGFR 18.11 Random Glucose 116 H Lactic Acid Calcium 8.3 L Phosphorus 3.3 Magnesium 1.7 L Total Bilirubin 1.1 H AST 18 ALT 10 L Alkaline Phosphatase 96 Creatine Kinase Troponin I C-Reactive Protein Total Protein 7.1 Albumin 2.8 L Urine Color Urine Appearance Urine pH Ur Specific Selby Urine Protein Urine Glucose (UA) Urine Ketones Urine Blood Urine Nitrite Urine Bilirubin Urine Urobilinogen Ur Leukocyte Esterase Urine WBC (Auto) Urine RBC (Auto) Ur Epithelial Cells Urine Bacteria Granular Casts Urine Mucus Urine Yeast Phenytoin Blood Type Antibody Screen STUDIES: Chest xray showed prominent mediastinum, sternal sutures, right jugular line with tips in junction of SVC and right atrium. Hair artifact and central congestive changes noted. EKG showed normal sinus rhythm at 91 BPM, prolonged QT at 390ms, QTC 479ms, and T wave variations when compared with prior study. Blood cultures: Gram positive cocci in clusters in aerobic and anaerobic jars Catheter rip culture: Pending preliminary results. HOSPITAL COURSE: Date of Admission:06/27/18 Date of Discharge: 06/27/18 Patient is a 38 year old male with history of ESRD (HD T, Th, Sat -last dialysis on 06/23/2018) , Type A aortic dissection (12/2017), seizures, opiod and PCP drug use, hypertension, presents with complaint of chest pain, malaise, subjective fevers, diarrhea. Admitted for sepsis likely secondary to catheter infection. Upon admission, patient BP was 189/124, peaked to 217/130, and trended down afterwards to 131/82. BP was managed with labetalol 200mg PO, and hydralazine 100mg PO. He was given Aspirin 81mg. Patient was septic upon presentation. Etiology was unclear, however likely secondary to perma- cath that had not been changed for past 8 months since it was inserted (due to lack of follow up). Vascular surgery consult removed perma- cath at bedside. Catheter tips sent for culture. Blood cultures preliminary growth significant for Gram positive cocci in clusters. Infectious disease consult discussed following blood cultures, vancomycin level, and continuing zosyn. Also discussed stool studies for the diarrhea. With respect to his ESRD, Nephrology consult discussed stable electrolytes and no fluid overload- holding shiley catheter placement and dialysis for today. He was resumed on his home medications for seizures- phenytoin 100mg PO TID. With respect to his chest pain, and history of thoracic aortic dissection s/p repair with residual dissection, Cardiology consult discussed CT chest with contrast to rule out enlarging aortic dissection, with subsequent hemodialysis. Discussed transfer to [facility] CCU for higher level of care. Minutes to complete discharge: 35 Discharge Summary Reason For Visit: SEPSIS Current Active Problems Aortic dissection (Acute) Bacteremia (Acute) Catheter-related bloodstream infection (Acute) ESRD (end stage renal disease) on dialysis (Acute) Generalized weakness (Acute) S/P AVR (Acute) Sepsis (Acute) Condition: Stable - Instructions Diet, Activity, Other Instructions: Patient is being transferred to [facility] for higher level of care. Disposition: TRANSFER ACUTE CARE/OTHER HOSP - Home Medications Comprehensive Discharge Medication List: Ambulatory Orders Aspirin [ASA -] 81 mg PO DAILY 10/19/15 Phenytoin Na Extended [Dilantin -] 100 mg PO TID 10/19/15 Amlodipine Besylate [Norvasc -] 10 mg PO DAILY #30 tablet 06/27/18 Atorvastatin Ca [Lipitor] 80 mg PO HS #30 tab 06/27/18 Famotidine [Pepcid] 20 mg PO DAILY 06/27/18 Ferrous Sulfate [Iron] 325 mg PO BID 06/27/18 Hydralazine HCl 100 mg PO TID 06/27/18 Labetalol HCl [Normodyne -] 800 mg PO TID 06/27/18 This patient is new to me today: Yes Date on this admission: 06/27/18 Emergency Visit: Yes ED Registration Date: 06/27/18 Care time: The patient presented to the Emergency Department on the above date and was hospitalized for further evaluation of their emergent condition. Critical Care patient: No - Discharge Referral Referred to [facility] Med P.C.: No
--- NOTE | 2018-06-27 16:10 | PN ---
Teaching Attending Note Name of Resident: Nathaniel Giraldo ATTENDING PHYSICIAN STATEMENT I saw and evaluated the patient. I reviewed the resident's note and discussed the case with the resident. I agree with the resident's findings and plan as documented. SUBJECTIVE: Patient is having Rigors this morning. states "not feeling well" OBJECTIVE: Vital Signs Temperature 99.5 F 06/27/18 15:11 Pulse Rate 91 H 06/27/18 15:11 Respiratory Rate 20 06/27/18 15:11 Blood Pressure 131/82 06/27/18 15:11 O2 Sat by Pulse Oximetry (%) 99 06/27/18 13:00 GENERAL: The patient is sleeping feeling cold, agitated, in mild distress. HEAD: Normocephalic atraumatic EYES: PERRLA, sclera anicteric, conjunctiva clear. ENT: Oropharynx clear without exudates, moist mucous membranes. NECK: Supple without lymphadenopathy LUNGS: Breath sounds equal, decreased BS BL, no wheezes, no crackles, no accessory muscle use. HEART: Regular rate and rhythm, S1, S2 positive , MARCELINA 2/6 ,no rub or gallop. ABDOMEN: Soft, nontender, nondistended, normoactive bowel sounds, no guarding, no rebound, no hepatosplenomegaly. EXTREMITIES: 2+ pulses, warm, well-perfused, no edema. SKIN: Perma-cath WAS removed this morning due to having fever, WITH erythema surrounding the catheter insertion site. Slight yellow drainage noted. Tender to palpation. CBCD WBC 10.3 K/mm3 (4.0-10.0) H 06/27/18 06:10 RBC 4.22 M/mm3 (4.00-5.60) 06/27/18 06:10 Hgb 12.5 GM/dL (11.7-16.9) 06/27/18 06:10 Hct 38.3 % (35.4-49) 06/27/18 06:10 MCV 90.7 fl (80-96) 06/27/18 06:10 MCHC 32.6 g/dl (32.0-35.9) 06/27/18 06:10 RDW 16.0 % (11.9-15.9) H 06/27/18 06:10 Plt Count 200 K/MM3 (134-434) 06/27/18 06:10 MPV 8.1 fl (7.5-11.1) 06/27/18 06:10 CMP Sodium 136 mmol/L (136-145) 06/27/18 06:10 Potassium 4.5 mmol/L (3.5-5.1) 06/27/18 06:10 Chloride 103 mmol/L (98-107) 06/27/18 06:10 Carbon Dioxide 23 mmol/L (21-32) 06/27/18 06:10 Anion Gap 10 MMOL/L (8-16) 06/27/18 06:10 BUN 28 mg/dL (7-18) H 06/27/18 06:10 Creatinine 3.8 mg/dL (0.55-1.3) H 06/27/18 06:10 Creat Clearance w eGFR 18.11 (>60) 06/27/18 06:10 Random Glucose 116 mg/dL (74-106) H 06/27/18 06:10 Calcium 8.3 mg/dL (8.5-10.1) L 06/27/18 06:10 Total Bilirubin 1.1 mg/dL (0.2-1.0) H 06/27/18 06:10 AST 18 U/L (15-37) 06/27/18 06:10 ALT 10 U/L (13-61) L 06/27/18 06:10 Alkaline Phosphatase 96 U/L (45-117) 06/27/18 06:10 Total Protein 7.1 g/dl (6.4-8.2) 06/27/18 06:10 Albumin 2.8 g/dl (3.4-5.0) L 06/27/18 06:10 CARDIAC ENZYMES Creatine Kinase 94 IU/L (26-308) 06/27/18 01:22 Troponin I 0.03 ng/ml (0.00-0.05) 06/27/18 01:22 Current Medications Generic Name Dose Route Start Last Admin Trade Name Leiq PRN Reason Stop Dose Admin Acetaminophen 650 mg 06/27/18 13:43 06/27/18 13:53 Tylenol - PO 650 mg Q6H PRN Administration Fever Or Pain Aspirin 81 mg 06/27/18 10:30 06/27/18 12:33 Asa - PO 81 mg DAILY JOSELYN Administration Ferrous Sulfate 325 mg 06/27/18 11:30 06/27/18 12:34 Feosol - PO 325 mg BID JOSELYN Administration Heparin Sodium (Porcine) 5,000 unit 06/27/18 06:00 06/27/18 13:53 Heparin - SQ 5,000 unit TID JOSELYN Administration Hydralazine HCl 100 mg 06/27/18 14:00 06/27/18 13:53 Apresoline - PO 100 mg TID JOSELYN Administration Vancomycin HCl 1,000 mg/ 250 mls @ 200 mls/hr 06/28/18 05:00 Dextrose IVPB 06/28/18 06:14 ONCE ONE Protocol Piperacillin Sod/Tazobactam 50 mls @ 100 mls/hr 06/27/18 10:00 06/27/18 10:24 Sod 2.25 gm/ Dextrose IVPB 100 mls/hr Q8H-IV JOSELYN Administration Protocol Labetalol HCl 200 mg 06/27/18 14:00 06/27/18 13:53 Normodyne - PO 200 mg TID JOSELYN Administration Nicotine 7 mg 06/27/18 10:00 06/27/18 10:27 Nicoderm Patch - TD 7 mg DAILY JOSELYN Administration Phenytoin Sodium 100 mg 06/27/18 14:00 06/27/18 13:53 Dilantin - PO 100 mg TID JOSELYN Administration Ranitidine HCl 150 mg 06/27/18 10:30 06/27/18 12:34 Zantac - PO 150 mg DAILY JOSELYN Administration Home Medications Medication Instructions Recorded Aspirin [ASA -] 81 mg PO DAILY 10/19/15 Phenytoin Na Extended [Dilantin -] 100 mg PO TID 10/19/15 Acetaminophen [Tylenol .Regular 650 mg PO Q6H PRN tablet 06/27/18 Strength -] Amlodipine Besylate [Norvasc -] 10 mg PO DAILY #30 tablet 06/27/18 Atorvastatin Ca [Lipitor] 80 mg PO HS #30 tab 06/27/18 Famotidine [Pepcid] 20 mg PO DAILY 06/27/18 Ferrous Sulfate [Iron] 325 mg PO BID 06/27/18 Hydralazine HCl 100 mg PO TID 06/27/18 Labetalol HCl [Normodyne -] 200 mg PO TID tablet 06/27/18 Nicotine Patch [Nicoderm Patch -] 7 mg TD DAILY patch 06/27/18 Piperacillin/Tazob 2.25 gm [Zosyn 2.25 gm IVPB Q8H-IV vial 06/27/18 -] Vancomycin 1,000 mg IVPB Q24H vial 06/27/18 Microbiology 06/27/18 00:40 Blood - Peripheral Venous Blood Culture - Preliminary Pending Organism 06/27/18 00:45 Blood - Peripheral Venous Blood Culture - Preliminary Pending Organism ASSESSMENT AND PLAN: Patient is a 38 yo male with PMHx of severe HTN who is poorly compliant with medications, history of opioid and PCP drug use (currently denies) who was admitted to [facility] with Type A dissection 12/2017 from the Aortic valve to the Rt Illiac artery and is post emergent dissection repair with replacement of the ascending aorta (distal to the sinotubular junction), remodeling of the sino -tubular junction with resuspention of the aortic valve leaflets on 12/31/17. per Cardioloy note. Intraoperative PEPE showed EF 30%. CT chest POD 1 showed: " There is residual dissection in the aortic arch and extending into all arch vessels. Dissection involves the proximal right common carotid artery, entire visualized left common carotid artery and proximal left subclavian artery. The aortic arch measures about 35 mm. The proximal descending aorta measures 31 mm. At the diaphragm the aorta measures about 25 mm. The dissection flap extends throughout the descending aorta and into the abdomen." Patient s being arranges to transfer to CCU at [facility]. due to his previous complications. Needing tight BP control. # Bacterimia: Blood c&s is pending ID on the case , ON IV antibiotics Vancomycin and renaly dosed Zosyn , follow bld c&S # Sepsis septic w/u is pending #. ESRD s/p perma cath removal since tender and swelling site, as per Nephro patient is making urine, no need for dialysis catheter for now. to monitor # HTN Uncontolle d; needs titier control since has a hx of Disscection type A # Hx of aortic dissection/ possible aortic valve replacement #Hx epilepsy # non compliance with meds. # multi drug abuse (cocaine and PCP) [facility] DVT Px: Heparin
[2018-06-27] MEDS ORDERED: DEXTROSE 5%-WATER - 50 ML IVPB ONE (17:57)
[2018-06-28] MEDS ORDERED: VANCOMYCIN 1,000 MG in DEXTROSE 5%-WATER - 250 ML IVPB ONE (05:00)
[2018-06-29] MEDS ORDERED: VANCOMYCIN 1,000 MG in DEXTROSE 5%-WATER - 250 ML IVPB SCH (05:00)
== END 2018-06-27 18:21 | disposition short-term general hospital (02) | DRG 721 ==
LOC: JER 23:41 → JERBED 06-27 02:30 → J6S 06-27 03:33
PROVIDERS: ADMIT Internal Medicine; ATTEND Internal Medicine
PROC: 05PYX3Z Removal of Infusion Device from Upper Vein, External Approach (ICD-10-PCS; principal; 2018-06-27)
DX: T80.211A Bloodstream infection due to central venous catheter, initial encounter (principal); A41.9 Sepsis, unspecified organism; I12.0 Hypertensive chronic kidney disease with stage 5 chronic kidney disease or end stage renal disease; N18.6 End stage renal disease; Z95.4 Presence of other heart-valve replacement; Y84.1 Kidney dialysis as the cause of abnormal reaction of the patient, or of later complication, without mention of misadventure at the time of the procedure; Z91.15 Patient's noncompliance with renal dialysis; Z99.2 Dependence on renal dialysis; G40.909 Epilepsy, unspecified, not intractable, without status epilepticus; F43.10 Post-traumatic stress disorder, unspecified; F17.210 Nicotine dependence, cigarettes, uncomplicated; F14.10 Cocaine abuse, uncomplicated; F11.10 Opioid abuse, uncomplicated; I45.81 Long QT syndrome; Y84.8 Other medical procedures as the cause of abnormal reaction of the patient, or of later complication, without mention of misadventure at the time of the procedure; I71.00 Dissection of unspecified site of aorta
CPT/HCPCS: 36415; 71045-TC-FY; 80053; 80185; 81003; 81015; 82550; 82803; 83605; 83735; 84100; 84484; 85025; 85610; 85651; 85730; 86140; 86850; 86900; 86901; 87040; 87070; 87086; 87186; 93005; 93010; 93306-TC; 99285-25; G0480; J0131; J1644; J7030

== ENCOUNTER 2018-08-26 13:40 | Emergency (ER) | payer OTHER ==
[2018-08-26 13:55] VITALS: TEMP 98; BMI 21.9
--- NOTE | 2018-08-26 14:49 | PDOC ---
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 Patient says he used to be on dialysis up to 4 weeks ago until he was told it wasn't necessary and that his kidney were healthy enough again. 08/26/18 16:30 <Mart Forrester - Last Filed: 08/26/18 17:45> - General Chief Complaint: Pain, Acute Stated Complaint: ABD PAIN Time Seen by Provider: 08/26/18 14:49 Past History <Rossana Veronica - Last Filed: 08/26/18 17:21> - Past Medical History Cardiac Disorders: Yes COPD: No Dialysis: Yes (T,T,SAT) Disorders: Yes (RENAL FAILURE-PREPARING FOR DIALYSIS) HTN: Yes Psychiatric Problems: Yes (PTSD) Seizures: Yes (epilepsy) - Surgical History Abdominal Surgery: Yes (2 hernia repair) Cardiac Surgery: Yes (VALVE REPLACEMENT) - Immunization History Immunization Up to Date: Yes - Suicide/Smoking/Psychosocial Hx Smoking History: Current some day smoker Have you smoked in the past 12 months: Yes Number of Cigarettes Smoked Daily: 4 Information on smoking cessation initiated: No Hx Alcohol Use: No Drug/Substance Use Hx: No <Mart Forrester - Last Filed: 08/26/18 17:45> - Past Medical History Allergies/Adverse Reactions: Allergies Allergy/AdvReac Type Severity Reaction Status Date / Time No Known Allergies Allergy Verified 08/26/18 13:49 Home Medications: Ambulatory Orders Aspirin [ASA -] 81 mg PO DAILY 10/19/15 Phenytoin Na Extended [Dilantin -] 100 mg PO TID 10/19/15 Acetaminophen [Tylenol .Regular Strength -] 650 mg PO Q6H PRN tablet 06/27/18 Amlodipine Besylate [Norvasc -] 10 mg PO DAILY #30 tablet 06/27/18 Atorvastatin Ca [Lipitor] 80 mg PO HS #30 tab 06/27/18 Famotidine [Pepcid] 20 mg PO DAILY 06/27/18 Ferrous Sulfate [Iron] 325 mg PO BID 06/27/18 Hydralazine HCl 100 mg PO TID 06/27/18 Labetalol HCl [Normodyne -] 200 mg PO TID tablet 06/27/18 Nicotine Patch [Nicoderm Patch -] 7 mg TD DAILY patch 06/27/18 Review of Systems - Review of Systems Able to Perform ROS?: Yes Is the patient limited Czech proficient: No Constitutional: Yes: Weakness HEENTM: Yes: See HPI Respiratory: No: Cough Cardiac (ROS): Yes: Chest Pain ABD/GI: No: Abdominal Distended, Blood Streaked Bowels, Rectal Bleeding, Vomiting : No: Symptoms Reported Musculoskeletal: No: Symptoms Reported Integumentary: No: Symptoms Reported All Other Systems: Reviewed and Negative <Mart Forrester - Last Filed: 08/26/18 17:45> *Physical Exam - Vital Signs Last Vital Signs Temp Pulse Resp BP Pulse Ox 98 F 88 18 164/128 H 97 08/26/18 13:50 08/26/18 16:52 08/26/18 16:52 08/26/18 16:52 08/26/18 13:50 <Rossana Veronica - Last Filed: 08/26/18 17:21> - Vital Signs Last Vital Signs Temp Pulse Resp BP Pulse Ox 98 F 89 18 133/102 H 97 08/26/18 13:50 08/26/18 13:50 08/26/18 13:50 08/26/18 13:50 08/26/18 13:50 - Physical Exam General Appearance: Yes: Nourished, Appropriately Dressed, Apparent Distress, Mild Distress HEENT: positive: EOMI, DAVID, Normal ENT Inspection Neck: positive: Trachea midline, Normal Thyroid, Supple. negative: Tender, Carotid bruit Respiratory/Chest: positive: Lungs Clear, Normal Breath Sounds. negative: Chest Tender, Respiratory Distress Cardiovascular: positive: Regular Rhythm, Regular Rate, S1, S2 Vascular Pulses: Carotid (R): 2+, Carotid (L): 2+, Dorsalis-Pedis (R): 2+, Doralis-Pedis (L): 2+ Gastrointestinal/Abdominal: positive: Normal Bowel Sounds, Tender (diffuse but more so periumbilical), Soft Musculoskeletal: positive: Normal Inspection. negative: CVA Tenderness Extremity: positive: Normal Capillary Refill, Normal Inspection, Normal Range of Motion Integumentary: positive: Normal Color, Dry, Warm. negative: Cyanotic, Cold, Clammy, Diaphoresis Neurologic: positive: Fully Oriented, Alert, Normal Mood/Affect <Mart Forrester - Last Filed: 08/26/18 17:45> ED Treatment Course - LABORATORY CBC & Chemistry Diagram: 08/26/18 15:22 08/26/18 15:22 - ADDITIONAL ORDERS Additional order review: Laboratory Results 08/26/18 08/26/18 08/26/18 15:22 15:22 15:05 Sodium 137 Potassium 3.5 Chloride 106 Carbon Dioxide 22 Anion Gap 9 BUN 38 H Creatinine 3.6 H Creat Clearance w eGFR 19.28 Random Glucose 108 H Calcium 8.2 L Total Bilirubin 0.8 AST 12 L ALT 7 L Alkaline Phosphatase 89 Troponin I 0.08 H Total Protein 6.1 L Albumin 2.6 L Stool Occult Blood Negative 08/26/18 15:22 RBC 3.79 L MCV 90.9 MCHC 31.9 L RDW 16.2 H MPV 8.9 Neutrophils % 76.4 Lymphocytes % 15.1 D Monocytes % 6.6 Eosinophils % 0.9 D Basophils % 1.0 - RADIOLOGY Radiology Studies Ordered: Category Date Time Status CHEST X-RAY PORTABLE* [RAD] Stat Radiology 08/26/18 16:22 Completed <Rossana Veronica - Last Filed: 08/26/18 17:21> - LABORATORY CBC & Chemistry Diagram: 08/26/18 15:22 08/26/18 15:22 <Mart Forrester - Last Filed: 08/26/18 17:45> Medical Decision Making - Medical Decision Making 08/26/18 16:36 38m with pmh of dissection rpesents to the ED with chest pain, abdominal pain, hemoptysis and weakness. Due to his history of dissection we have to consider an acute on chronic presentation of aortic dissection vs TN vs PE vs boorhave vs esophageal varices Regarding his chest pain we are highly suspicious for dissection due to previous history and chest and abdominal pain so we will obtain CTA chest and abdomen DENTON, after which we'll get trops, chest x ray and ekg as well as basic labs. From preliminary read in the Ct room we decided to transfer the patient to the thoracic surgery service at [facility] where the patient was operated on back in December, to the service of Dr. Inman. With no prior imaging to compare there is no way to know what is acute or chronic. Ct incidentally shows upper right lobe consolidation which could signify pulmonary hemorrhage vs TB in the context of hemoptysis. Labs back with elevated slightly elevated troponin, however EKG only positive for 1st degree AV block. PAtient receiving Esmolol drip for BP control. Transfered to cardiothoracic ICU at [facility] by EMS code red. <Mart Forrester - Last Filed: 08/26/18 17:45> *DC/Admit/Observation/Transfer <Rossana Veronica - Last Filed: 08/26/18 17:21> - Discharge Dispostion Decision to Admit order: No - Transfer to Acute Care Facility Receiving Facility: [facility] Accepting Physician:: Storm <Mart Forrester - Last Filed: 08/26/18 17:45> Diagnosis at time of Disposition: Aortic dissection, Chest pain, Hemoptysis, Abdominal pain - Discharge Dispostion Disposition: TRANSFER ACUTE CARE/OTHER HOSP Condition at time of disposition: Stable
[2018-08-26 15:42] LABS: EOS % 0.9 % (0-4.5); HEMATOCRIT 34.4 % (35.4-49); LYMPH % 15.1 % (8-40); MCHC 31.9 g/dl (32.0-35.9); MEAN CELL VOLUME 90.9 fl (80-96); MEAN PLT VOLUME 8.9 fl (7.5-11.1); MONO % 6.6 % (3.8-10.2); NEUT % 76.4 % (42.8-82.8); PLATELET COUNT 171 K/MM3 (134-434); RBC 3.79 M/mm3 (4.00-5.60); RDW 16.2 % (11.9-15.9); WHITE BLOOD COUNT 7.3 K/mm3 (4.0-10.0)
[2018-08-26] MEDS ORDERED: ESMOLOL 2500 MG/250 ML 2,500,000 MCG/250 ML INFUS.BAG IVPB ONE (16:05)
[2018-08-26 16:09] LABS: ALBUMIN 2.6 g/dl (3.4-5.0); ALK PHOS 89 U/L (45-117); ANION GAP 9 MMOL/L (8-16); BILIRUBIN,TOTAL 0.8 mg/dL (0.2-1); BLOOD UREA NITROGEN 38 mg/dL (7-18); CALCIUM 8.2 mg/dL (8.5-10.1); CHLORIDE 106 mmol/L (98-107); CO2 22 mmol/L (21-32); CREATININE 3.6 mg/dL (0.55-1.3); GLUCOSE,RANDOM 108 mg/dL (74-106); POTASSIUM 3.5 mmol/L (3.5-5.1); SGOT/AST 12 U/L (15-37); SGPT/ALT 7 U/L (13-61); SODIUM 137 mmol/L (136-145); TOT PROT 6.1 g/dl (6.4-8.2)
[2018-08-26] MEDS ORDERED: ESMOLOL 2500 MG/250 ML 2,500,000 MCG/250 ML INFUS.BAG IVPB SCH (16:15)
--- NOTE | 2018-08-26 16:30 | PDOC ---
Attending Attestation - Medical Decision Making 08/26/18 17:04 Call placed to [facility] at 4:05, information exchanged with [place]. Case discussed with Dr. Inman. <ChanduMahogany - Last Filed: 08/26/18 17:04> - Resident Resident Name: Mart Forrester - ED Attending Attestation I have performed the following: I have examined & evaluated the patient, The case was reviewed & discussed with the resident, I agree w/resident's findings & plan, Exceptions are as noted - HPI HPI: 08/26/18 16:41 The patient is a 38 year old male with past medical history significant for HTN , opioid and PCP abuse, ESRD previously on HD (last dialysis on 06/23/2018, no longer on HD), Type A aortic dissection (12/2017) to the R. Iliac artery s/p emergency dissection repair with replacement of the Aorta (transferred to CCU at [facility]) presents to the emergency department with chest and abdominal pain for the past 3 days. The patient presents with right-sided sharp chest pain for the past 3 days, thats 7/10 in severity, without any alleviation factor. Denies tearing pain. The patient reports associated symptoms of abdominal pain, hemoptysis, generalized weakness and loss of appetite. The patient is unable to recall the names of his medications and admits he has not been taking his BP medications. States 4 episodes of blood tinged sputum, no large amounts of blood. Denies fever, chills, shortness of breath, nausea, vomiting, diaphoresis, urinary symptoms or changes in bowel habits. Allergies: NKA Social history: Current everyday smoker. Patient denies any recreational drug use. No alcohol use reported. Surgical history: Hernia repairment, and valve replacement. PCP: None reported - Physicial Exam PE: 08/26/18 16:53 GENERAL: Awake, alert, and fully oriented, in no acute distress EYES: PERRLA, EOMI, sclera anicteric, conjunctiva clear ENT: Oropharynx clear without exudates. Moist mucosa NECK: Normal ROM, supple, no lymphadenopathy, JVD, or masses LUNGS: Breath sounds equal, clear to auscultation bilaterally. No wheezes, and no crackles HEART: Regular rate and rhythm, normal S1 and S2, no murmurs, rubs or gallops. Large midline sternal scar well healed ABDOMEN: Soft, nontender, normoactive bowel sounds. No guarding, no rebound. No masses EXTREMITIES: Normal range of motion, no edema. No cords, erythema, or tenderness NEUROLOGICAL: Normal speech, cranial nerves intact, 5/5 strength in all 4 extremities, normal sensation to light touch in all 4 extremities, normal cerebellar exam, normal gait, normal tone SKIN: Warm, Dry, normal turgor, no rashes or lesions noted. - Critical Care Time Total Critical Care Time: 120 Critical Care Statement: The care of this patient involved high complexity decision making to prevent further life threatening deterioration of the patient 's condition and/or to evaluate & treat vital organ system(s) failure or risk of failure. - Medical Decision Making 08/26/18 16:56 38yo M with MMP including aortic dissection s/p graft repair and AVR at [facility] in 12/2017 presents to the ED with 3 days of persistent CP and abd pain. High concern for recurrent dissection vs graft leak vs MT vs PNA vs PE. Due to concern for dissection, pt was taken immediately to CTA of chest, abd, pelvis prior to renal function. CTA reveals acute vs chronic dissection per radiology. No prior imaging to compare. [facility] was called immediately, Dr. Inman from cardiothoriacic surgery accepts the pt (and did his previous surgery). COde red activated to empress. Esmolol drip initiated and quickly titrated from 50mcg up to 300mcg for BP titration. Pt transported to [facility] by empress. <Rossana Veronica - Last Filed: 08/26/18 17:13> Heart Score/ECG Review #1 08/26/18 17:10 Twelve-lead EKG was performed and reviewed by me. Sinus rhythm, rate 90. Normal axis. ST depressions in 1, 2, 3, aVF, V5 and V6. <1mm ST elevation in aVR. When compared to EKG from 06/27/2018, ST segments are slightly more depressed. <Rossana Veronica - Last Filed: 08/26/18 17:13>
[2018-08-26 16:39] VITALS: BP 164/128
[2018-08-26 16:54] VITALS: PULSE 88
--- NOTE | 2018-08-29 23:46 | EKG ---
Test Reason : Blood Pressure : / mmHG Vent. Rate : 090 BPM Atrial Rate : 090 BPM P-R Int : 260 ms QRS Dur : 100 ms QT Int : 210 ms P-R-T Axes : 000 079 246 degrees QTc Int : 256 ms SINUS RHYTHM WITH 1ST DEGREE A-V BLOCK NONSPECIFIC ST AND T WAVE ABNORMALITY ABNORMAL ECG WHEN COMPARED WITH ECG OF 27-JUN-2018 00:31, T WAVE VARIATION Confirmed by KEO ARMSTRONG, NICHOLAS ([id number]) on 08/29/2018 11:45:55 PM Referred By: Confirmed By:NICHOLAS CROWLEY MD
== END 2018-08-26 17:22 | disposition short-term general hospital (02) ==
LOC: JER 13:40
DX: I71.00 Dissection of unspecified site of aorta (principal); R07.9 Chest pain, unspecified; R10.9 Unspecified abdominal pain; R04.2 Hemoptysis; I10 Essential (primary) hypertension; F11.10 Opioid abuse, uncomplicated; I12.9 Hypertensive chronic kidney disease with stage 1 through stage 4 chronic kidney disease, or unspecified chronic kidney disease; N18.9 Chronic kidney disease, unspecified; Z99.2 Dependence on renal dialysis
CPT/HCPCS: 36415; 71045-TC-FY; 71275-TC; 74174-TC; 80053; 82272; 84484; 85025; 93005; 93010; 99285-25

== ENCOUNTER 2018-09-09 06:28 | Emergency (ER) | payer OTHER ==
[2018-09-09 06:54] VITALS: PULSE 74; TEMP 97.9; BMI 22.3
--- NOTE | 2018-09-09 07:02 | PDOC ---
History of Present Illness - History of Present Illness Initial Comments: 38 year old male with PMH of HTN, cigarette smoking, polysubstance abuse ( opioids, marijuana, PCP), seizure disorder, hx of aortic dissections (type A repaired 12/31/17, descending aortic dissection (TVAR on 08/30/18 at [facility]) poor follow up because of AMAs from both hospitalizations for his dissections presenting with pain in his legs and back for the past few days that acutely worsened last night. Describes the pain as 5/10-9/10 aching pain along his buttocks and radiates into his thighs causing him weakness. Has taken hydromorphone for it without much relief. He did not go to [facility] because he was in a lot of pain. Denies any fevers, chills, nausea, vomiting, diarrhea, constipation, or other symptoms. 09/09/18 07:12 <Joie Nolan - Last Filed: 09/09/18 12:07> <Lupe Thomas - Last Filed: 09/09/18 12:21> - General Chief Complaint: Back Pain Stated Complaint: PAIN Time Seen by Provider: 09/09/18 07:02 Past History - Past Medical History Cardiac Disorders: Yes COPD: No Dialysis: Yes (T,T,SAT) Disorders: Yes (RENAL FAILURE-PREPARING FOR DIALYSIS) HTN: Yes Psychiatric Problems: Yes (PTSD) Seizures: Yes (epilepsy) - Surgical History Abdominal Surgery: Yes (2 hernia repair) Cardiac Surgery: Yes (VALVE REPLACEMENT) - Immunization History Immunization Up to Date: Yes - Suicide/Smoking/Psychosocial Hx Smoking History: Never smoked Have you smoked in the past 12 months: No Number of Cigarettes Smoked Daily: 4 Information on smoking cessation initiated: No Hx Alcohol Use: No Drug/Substance Use Hx: No <Joie Nolan - Last Filed: 09/09/18 12:07> <Lupe Thomas - Last Filed: 09/09/18 12:21> - Past Medical History Allergies/Adverse Reactions: Allergies Allergy/AdvReac Type Severity Reaction Status Date / Time No Known Allergies Allergy Verified 09/09/18 06:52 Home Medications: Ambulatory Orders Aspirin [ASA -] 81 mg PO DAILY 10/19/15 Amlodipine Besylate [Norvasc -] 10 mg PO DAILY #30 tablet 06/27/18 Atorvastatin Ca [Lipitor] 80 mg PO HS #30 tab 06/27/18 Famotidine [Pepcid] 20 mg PO DAILY 06/27/18 Labetalol HCl [Normodyne -] 400 mg PO TID 09/09/18 Review of Systems - Review of Systems Constitutional: No: Chills, Diaphoresis, Fever HEENTM: No: Eye Pain, Blurred Vision, Tearing Respiratory: No: Cough, Shortness of Breath, SOB with Exertion Cardiac (ROS): Yes: Chest Pain. No: Edema, Irregular Heart Rate, Lightheadedness ABD/GI: No: Constipated, Diarrhea, Nausea, Poor Appetite : No: Burning, Dysuria, Discharge Musculoskeletal: Yes: Back Pain, Muscle Pain Integumentary: No: Bruising, Erythema, Flushing, Lesions, Lumps Neurological: No: Headache, Numbness, Paresthesia Psychiatric: Yes: Other (substance abuse) Hematologic/Lymphatic: No: Anemia, Blood Clots, Easy Bleeding <Joie Nolan - Last Filed: 09/09/18 12:07> *Physical Exam - Vital Signs Last Vital Signs Temp Pulse Resp BP Pulse Ox 97.9 F 74 22 H 174/98 H 100 09/09/18 06:45 09/09/18 06:45 09/09/18 06:45 09/09/18 06:45 09/09/18 06:45 - Physical Exam General Appearance: Yes: Nourished, Appropriately Dressed. No: Apparent Distress HEENT: positive: EOMI, DAVID, Normal ENT Inspection, Normal Voice Neck: positive: Trachea midline, Normal Thyroid, Supple. negative: Tender, Rigid Respiratory/Chest: positive: Chest Tender (over sternotomy site), Lungs Clear, Normal Breath Sounds. negative: Respiratory Distress Cardiovascular: positive: Regular Rhythm, Regular Rate, Murmur (systolic murmur) Gastrointestinal/Abdominal: positive: Normal Bowel Sounds, Flat, Soft. negative : Tender Male Genitalia: positive: other (inguinal surgical sites C/D/I) Lymphatic: negative: Adenopathy, Tenderness Musculoskeletal: positive: Other (weakness in legs bilaterally but negative SLR and no ttp over back). negative: Normal Inspection Extremity: positive: Normal Capillary Refill. negative: Normal Inspection, Normal Range of Motion, Tender Integumentary: positive: Normal Color, Dry, Warm Neurologic: positive: Fully Oriented, Alert, Normal Mood/Affect, Normal Response. negative: Motor Strength 5/5 (weak lower extremities) <Joie Nolan - Last Filed: 09/09/18 12:07> - Vital Signs Last Vital Signs Temp Pulse Resp BP Pulse Ox 97.9 F 74 22 H 158/84 100 09/09/18 06:45 09/09/18 06:45 09/09/18 06:45 09/09/18 08:49 09/09/18 06:45 <Lupe Thomas - Last Filed: 09/09/18 12:21> Moderate Sedation - Procedure Monitoring Vital Signs: Procedure Monitoring Vital Signs Temperature 97.9 F 09/09/18 06:45 Pulse Rate 74 09/09/18 06:45 Respiratory Rate 22 H 09/09/18 06:45 Blood Pressure 174/98 H 09/09/18 06:45 O2 Sat by Pulse Oximetry (%) 100 09/09/18 06:45 <Joie Nolan - Last Filed: 09/09/18 12:07> - Procedure Monitoring Vital Signs: Procedure Monitoring Vital Signs Temperature 97.9 F 09/09/18 06:45 Pulse Rate 74 09/09/18 06:45 Respiratory Rate 22 H 09/09/18 06:45 Blood Pressure 158/84 09/09/18 08:49 O2 Sat by Pulse Oximetry (%) 100 09/09/18 06:45 <Lupe Thomas - Last Filed: 09/09/18 12:21> ED Treatment Course - LABORATORY CBC & Chemistry Diagram: 09/09/18 07:55 09/09/18 07:55 <Joie Nolan - Last Filed: 09/09/18 12:07> - LABORATORY CBC & Chemistry Diagram: 09/09/18 07:55 09/09/18 07:55 - ADDITIONAL ORDERS Additional order review: Laboratory Results 09/09/18 09/09/18 09/09/18 07:55 07:55 07:55 PT with INR 12.60 INR 1.07 Sodium 140 Potassium 4.5 Chloride 109 H Carbon Dioxide 20 L Anion Gap 11 BUN 36 H Creatinine 5.1 H Creat Clearance w eGFR 12.90 Random Glucose 112 H Calcium 8.2 L Total Bilirubin 0.4 AST 30 ALT 25 Alkaline Phosphatase 98 Troponin I < 0.02 Total Protein 6.6 Albumin 2.6 L Blood Type O POSITIVE Antibody Screen Negative 09/09/18 07:55 RBC 3.10 L MCV 90.7 MCHC 35.5 RDW 16.4 H MPV 8.0 D Neutrophils % 66.8 Lymphocytes % 17.4 Monocytes % 7.1 Eosinophils % 7.7 H D Basophils % 1.0 - Medications Given in the ED: ED Medications Discontinued Medications Generic Name Dose Route Start Last Admin Trade Name [place] PRN Reason Stop Dose Admin Acetylcysteine 600 mg 09/09/18 07:42 09/09/18 08:30 Acetadote 20 Injection Use Only* - IVPB 09/09/18 07:43 600 mg ONCE ONE Administration Morphine Sulfate 4 mg 09/09/18 08:45 09/09/18 09:07 Morphine Injection - IVPUSH 09/09/18 08:46 4 mg ONCE ONE Administration Sodium Chloride 1,000 ml 09/09/18 07:36 09/09/18 07:36 Normal Saline - IV 09/09/18 07:37 1,000 ml ONCE ONE Administration <Lupe Thomas - Last Filed: 09/09/18 12:21> Medical Decision Making - Medical Decision Making CT stable from previous image. Patient continuously vocal about pain medications. Asked multiple times to sign out after speaking with him about need for transfer. Spoke to transfer center and CT surgeon there but patient ultimately declined transfer and refused to sign AMA forms stating "I don't put my Devin Mason on nothin' (sic) unless it makes sense or martha (sic) signs." He remained agitated and took the papers from my hands stating he would go to [facility] and get pain medication there. 09/09/18 12:08 <Joie Nolan - Last Filed: 09/09/18 12:07> *DC/Admit/Observation/Transfer - Discharge Dispostion Decision to Admit order: No <Joie Nolan - Last Filed: 09/09/18 12:07> <Lupe Thomas - Last Filed: 09/09/18 12:21> Diagnosis at time of Disposition: Back pain Qualifiers: Back pain location: low back pain Chronicity: acute Back pain laterality: bilateral Sciatica presence: with sciatica Sciatica laterality: bilateral sciatica Qualified Code(s): M54.42 - Lumbago with sciatica, left side - Discharge Dispostion Disposition: AGAINST MEDICAL ADVICE Condition at time of disposition: Stable - Referrals Referrals: Eddie Raza MD [Staff Physician] - [facility] [place] [Provider Group] [facility] [Provider Group] - Patient Instructions Printed Discharge Instructions: DI for Low Back Pain, DI for Chest Pain Additional Instructions: You understand that you are leaving against our medical advice. You could and understand that risk. Please return to the ED if you have new or worsening symptoms. Discussion at the bedside with patient and family. Pt has capacity to make medical decisions. Discussed indications for treatment and admission, management plan, risks and benefits. There is no evidence of psychosis, altered mental status or intoxication. Pt understands the nature of condition and treatment plan, including potential risks but not limited to: cardiac arrest, severe infection, dehydration, myocardial infarction, arrhythmia, stroke, respiratory failure, coma, severe disability and . you have a CT surgery appointment at [facility], on 09/14/18 please go and get reevaluation. Return precautions advised, call 911 immediately if severe life threatening symptoms or concerns.. Pt has verbalized understanding of information provided, questions answered.
[2018-09-09] MEDS: SODIUM CHLORIDE 0.9% 500 ML INFUS.BAG IV ONE ×2 (07:36→07:56)
--- NOTE | 2018-09-09 07:36 | PDOC ---
Attending Attestation - Resident Resident Name: Joie Nolan - ED Attending Attestation I have performed the following: I have examined & evaluated the patient, The case was reviewed & discussed with the resident, I agree w/resident's findings & plan - HPI HPI: 09/09/18 08:47 Riddles 38 year old male with past medical history significant for HTN, opioid and PCP abuse, ESRD previously on HD (last dialysis on 06/23/2018, no longer on HD), Type A aortic dissection (12/2017) to the R. Iliac artery s/p emergency dissection repair with replacement of the Aorta, AI s/p TAVR (12/31/18 and 06/2018 , repeat TAVR 08/31/18) presents to the emergency department with lower back pain and leg weakness x 2 days, no trauma. Intermittent diffuse chest pain. No exertional factors. Old records showing descending thoracic aorta 4x4 cm and infrarenal abdominal aorta 2.6 x 2.3cm Was recently admitted to the [facility] ICU 08/26 - , left AMA 09/02/18, for worsening descending aortic dissection on esmolol gtt and TAVR - Physicial Exam PE: 09/09/18 08:46 Mild distress 2/2 pain, PERRL, EOMI, nl conjunctiva, anicteric; neck supple. + sternotomy scar. lungs clear, +soft holosystolic murmur, abdomen soft nontender. BOWEN x4, no focal neuro deficits. No peripheral edema. normal color for ethnicity, WWP. wiggles toes. No reproducible back tenderness. Groin site c/ d/i. 09/09/18 09:56 - Medical Decision Making 09/09/18 08:47 See HPI for details DDx. ACS, angina, msk s train, aortic dissection/aneurysm/leak. Vital signs reviewed, mildly hypertensive, equal blood pressures in each arm. normal HR. Prior notes reviewed, including admissions, discharges and consultations from [facility]. laboratory results and imaging reviewed, basic labs and lytes with acute on chronic renal insufficiency, Cr 3.5 ? 5 EKG normal sinus rhythm, no interval abnormalities, narrow QRS, ST segments and morphology normal. Deep T wave inversions in lateral leads, similar to prior ekg. ED course: analgesia, IVF and NAC for prerenal/renal protection in setting of getting CTA to r/o progressive dissection/aortic aneurysm or leak CTA chest to abdomen runoff, with stable aortic dissection with endovascular repair visualized called to [facility] for CT surgery cs and transfer prior to that, pt got belligerent, demanding opioids and wants to leave against medical advice prior to arrangement of consult and management. Discussion at the bedside with patient and family. Pt has capacity to make medical decisions. Discussed indications for treatment and admission, management plan, risks and benefits. There is no evidence of psychosis, altered mental status or intoxication. Pt understands the nature of condition and treatment plan, including potential risks but not limited to: cardiac arrest, severe infection, dehydration, myocardial infarction, arrhythmia, stroke, respiratory failure, coma, severe disability and . Pt has close follow up with CT surgery appt on 09/14/18 with reevaluation and post op check. Return precautions advised, call 911 immediately if severe life threatening symptoms or concerns.. Pt has verbalized understanding of information provided, questions answered. 09/09/18 08:48 09/09/18 12:15 Heart Score/ECG Review - ECG Impressions Normal ECG: No Ischemic Changes: Yes Comment:: 09/09/18 08:46 EKG normal sinus rhythm, no interval abnormalities, narrow QRS, ST segments and morphology normal. Deep T wave inversions in lateral leads, similar to prior ekg.
[2018-09-09] MEDS ORDERED: ACETYLCYSTEINE 20% 200MG/ML 30ML VIAL *FOR INJECTION USE ONLY IVPB ONE ×2 (07:42→08:04)
[2018-09-09 08:13] LABS: EOS % 7.7 % (0-4.5); HEMATOCRIT 28.1 % (35.4-49); LYMPH % 17.4 % (8-40); MCH 32.2 pg (25.7-33.7); MCHC 35.5 g/dl (32.0-35.9); MEAN CELL VOLUME 90.7 fl (80-96); MONO % 7.1 % (3.8-10.2); NEUT % 66.8 % (42.8-82.8); PLATELET COUNT 315 K/MM3 (134-434); RDW 16.4 % (11.9-15.9); WHITE BLOOD COUNT 6.6 K/mm3 (4.0-10.0)
[2018-09-09 08:21] LABS: INR 1.07 (0.83-1.09); PROTHROMBIN TIME (PATIENT) 12.6 SEC (9.7-13.0)
[2018-09-09 08:36] LABS: ALBUMIN 2.6 g/dl (3.4-5.0); ALK PHOS 98 U/L (45-117); ANION GAP 11 MMOL/L (8-16); BILIRUBIN,TOTAL 0.4 mg/dL (0.2-1); BLOOD UREA NITROGEN 36 mg/dL (7-18); CALCIUM 8.2 mg/dL (8.5-10.1); CHLORIDE 109 mmol/L (98-107); CO2 20 mmol/L (21-32); CREATININE 5.1 mg/dL (0.55-1.3); GLUCOSE,RANDOM 112 mg/dL (74-106); POTASSIUM 4.5 mmol/L (3.5-5.1); SGOT/AST 30 U/L (15-37); SGPT/ALT 25 U/L (13-61); SODIUM 140 mmol/L (136-145); TOT PROT 6.6 g/dl (6.4-8.2)
[2018-09-09] MEDS ORDERED: morphine CARPU-JECT 4 MG/1 ML DISP.SYRIN IVPUSH ONE (08:45)
[2018-09-09 08:51] VITALS: BP 158/84
[2018-09-09] MEDS ORDERED: morphine SULFATE 4 MG/ML VIAL ONE (09:02)
--- NOTE | 2018-09-09 10:10 | EKG ---
Test Reason : Blood Pressure : / mmHG Vent. Rate : 079 BPM Atrial Rate : 079 BPM P-R Int : 154 ms QRS Dur : 096 ms QT Int : 392 ms P-R-T Axes : 031 068 158 degrees QTc Int : 449 ms NORMAL SINUS RHYTHM ABNORMAL ECG Confirmed by NAMITA HOOPER MD ([id number]) on 09/09/2018 10:09:55 AM Referred By: Confirmed By:NAMITA HOOPER MD
== END 2018-09-09 12:20 | disposition left against medical advice (07) ==
LOC: JER 06:28
PROC: 3E0337Z Introduction of Electrolytic and Water Balance Substance into Peripheral Vein, Percutaneous Approach (ICD-10-PCS; principal; 2018-09-09)
PROC: 3E033GC Introduction of Other Therapeutic Substance into Peripheral Vein, Percutaneous Approach (ICD-10-PCS; 2018-09-09)
PROC: 3E033NZ Introduction of Analgesics, Hypnotics, Sedatives into Peripheral Vein, Percutaneous Approach (ICD-10-PCS; 2018-09-09)
DX: M54.42 Lumbago with sciatica, left side (principal); I10 Essential (primary) hypertension; M79.10 Myalgia, unspecified site; M54.9 Dorsalgia, unspecified
CPT/HCPCS: 36415; 71275-TC; 74174-TC; 80053; 84484; 85025; 85610; 86850; 86900; 86901; 93005; 93010; 96374; 96375; 99283-25

== ENCOUNTER 2018-09-12 00:01 | Emergency (ER) | payer OTHER ==
[2018-09-12 01:19] VITALS: TEMP 98.6; BMI 22.3
--- NOTE | 2018-09-12 01:44 | PDOC ---
History of Present Illness - History of Present Illness Initial Comments: This patient is a 38 year old male with significant PMHx of HTN, opid and PCP abuse, ESRD previously on HD, Type A aortic dissection (12/2017) to right iliac artery s/p emergency dissection repair with replacement of the aorta, AI s/p TAVR (12/31/17), and 06/2018, repeat TAVR 08/31/18) who presents with lower back pain (L5-sacrum) that radiates to b/l legs and stops at mid-thigh. Patient was here on 09/09/18, admitted, and left AMA. He states that the pain persists. CT Surgeon at [facility] --> Dr. Inman 1 <Noemi Perkins - Last Filed: 09/12/18 02:27> <Sis Del Valle - Last Filed: 09/12/18 23:35> - General Chief Complaint: Back Pain Stated Complaint: LOWER BACK PAIN Time Seen by Provider: 09/12/18 00:49 Past History <Noemi Perkins - Last Filed: 09/12/18 02:27> - Past Medical History Cardiac Disorders: Yes COPD: No Dialysis: Yes (T,T,SAT) Disorders: Yes (RENAL FAILURE-PREPARING FOR DIALYSIS) HTN: Yes Psychiatric Problems: Yes (PTSD) Seizures: Yes (epilepsy) - Surgical History Abdominal Surgery: Yes (2 hernia repair) Cardiac Surgery: Yes (VALVE REPLACEMENT) - Immunization History Immunization Up to Date: Yes - Suicide/Smoking/Psychosocial Hx Smoking History: Never smoked Have you smoked in the past 12 months: No Number of Cigarettes Smoked Daily: 4 Hx Alcohol Use: No Drug/Substance Use Hx: No Substance Use Type: None <Sis Del Valle - Last Filed: 09/12/18 23:35> - Past Medical History Allergies/Adverse Reactions: Allergies Allergy/AdvReac Type Severity Reaction Status Date / Time No Known Allergies Allergy Verified 09/12/18 01:20 Home Medications: Ambulatory Orders Aspirin [ASA -] 81 mg PO DAILY 10/19/15 Amlodipine Besylate [Norvasc -] 10 mg PO DAILY #30 tablet 06/27/18 Atorvastatin Ca [Lipitor] 80 mg PO HS #30 tab 06/27/18 Famotidine [Pepcid] 20 mg PO DAILY 06/27/18 Labetalol HCl [Normodyne -] 400 mg PO TID 09/09/18 Review of Systems - Review of Systems Comments:: GENERAL/CONSTITUTIONAL: No fever or chills. No weakness. HEAD, EYES, EARS, NOSE AND THROAT: No change in vision. No ear pain or discharge. No sore throat. CARDIOVASCULAR: No chest pain or shortness of breath. RESPIRATORY: No cough, wheezing, or hemoptysis. GASTROINTESTINAL: No nausea, vomiting, diarrhea or constipation. GENITOURINARY: No dysuria, frequency, or change in urination. MUSCULOSKELETAL: No joint or muscle swelling or pain. +back pain (radiates to b/ l legs up to mid-thigh). SKIN: No rash NEUROLOGIC: No headache, vertigo, loss of consciousness, or change in strength/ sensation. ENDOCRINE: No increased thirst. No abnormal weight change. HEMATOLOGIC/LYMPHATIC: No anemia, easy bleeding, or history of blood clots. ALLERGIC/IMMUNOLOGIC: No hives or skin allergy. 09/12/18 02:17 <Noemi Perkins - Last Filed: 09/12/18 02:27> *Physical Exam - Vital Signs Last Vital Signs Temp Pulse Resp BP Pulse Ox 98.6 F 75 18 108/70 99 09/12/18 01:10 09/12/18 01:10 09/12/18 01:10 09/12/18 01:10 09/12/18 01:10 - Physical Exam Comments: GENERAL: Sleeping on gurney, in no acute distress HEAD: No signs of trauma EYES: PERRLA, EOMI, sclera anicteric, conjunctiva clear NECK: Normal ROM, supple, no lymphadenopathy, JVD, or masses LUNGS: Breath sounds equal, clear to auscultation bilaterally. No wheezes, and no crackles HEART: Well healed sternotic scar. Regular rate and rhythm, normal S1 and S2, soft systolic murmor. ABDOMEN: Soft, nontender, normoactive bowel sounds. No guarding, no rebound. No masses BACK: No reproducible tenderness. EXTREMITIES: Normal range of motion, no edema. No clubbing or cyanosis. No cords, erythema, or tenderness NEUROLOGICAL: No gross focal neuro deficits. Normal speech, normal gait SKIN: Warm, Dry, normal turgor, no rashes or lesions noted. 12/03/18 02:18 <Noemi Perkins - Last Filed: 09/12/18 02:27> - Vital Signs Last Vital Signs Temp Pulse Resp BP Pulse Ox 98.6 F 75 18 108/70 99 09/12/18 01:10 09/12/18 01:10 09/12/18 01:10 09/12/18 01:10 09/12/18 01:10 <Sis Del Valle - Last Filed: 09/12/18 23:35> Moderate Sedation - Procedure Monitoring Vital Signs: Procedure Monitoring Vital Signs Temperature 98.6 F 09/12/18 01:10 Pulse Rate 75 09/12/18 01:10 Respiratory Rate 18 09/12/18 01:10 Blood Pressure 108/70 09/12/18 01:10 O2 Sat by Pulse Oximetry (%) 99 09/12/18 01:10 <Noemi Perkins - Last Filed: 09/12/18 02:27> - Procedure Monitoring Vital Signs: Procedure Monitoring Vital Signs Temperature 98.6 F 09/12/18 01:10 Pulse Rate 75 09/12/18 01:10 Respiratory Rate 18 09/12/18 01:10 Blood Pressure 108/70 09/12/18 01:10 O2 Sat by Pulse Oximetry (%) 99 09/12/18 01:10 <Sis Del Valle - Last Filed: 09/12/18 23:35> ED Treatment Course - Additional Consults Time Called: 02:27 (Paged Dr. Inman) Consult/PCP: Cardiothroacic surgeon - [facility]. <Noemi Perkins - Last Filed: 09/12/18 02:27> - LABORATORY CBC & Chemistry Diagram: 09/12/18 02:33 09/12/18 02:33 <Sis Del Valle - Last Filed: 09/12/18 23:35> *DC/Admit/Observation/Transfer - Attestations Scribe Attestion: 09/12/18 02:21 Documentation prepared by Noemi Perkins, acting as medical diagnostic radiographer for Sis Del Valle MD. <Noemi Perkins - Last Filed: 09/12/18 02:27> <Sis Del Valle - Last Filed: 09/12/18 23:35> Diagnosis at time of Disposition: S/P AVR, ESRD (end stage renal disease) on dialysis Aortic dissection Qualifiers: Aortic location: unspecified Qualified Code(s): I71.00 - Dissection of unspecified site of aorta Low back pain Qualifiers: Chronicity: unspecified Back pain laterality: bilateral Sciatica presence: with sciatica Sciatica laterality: bilateral sciatica Qualified Code(s): M54.42 - Lumbago with sciatica, left side; M54.41 - Lumbago with sciatica, right side - Discharge Dispostion Disposition: TRANSFER ACUTE CARE/OTHER HOSP Condition at time of disposition: Guarded
[2018-09-12 02:47] LABS: BASO % 1.1 % (0-2.0); EOS % 8.5 % (0-4.5); HEMOGLOBIN 10.2 GM/dL (11.7-16.9); LYMPH % 18.6 % (8-40); MCH 30.7 pg (25.7-33.7); MCHC 34.1 g/dl (32.0-35.9); MEAN CELL VOLUME 90.1 fl (80-96); MEAN PLT VOLUME 7.9 fl (7.5-11.1); NEUT % 63.8 % (42.8-82.8); PLATELET COUNT 276 K/MM3 (134-434); RBC 3.33 M/mm3 (4.00-5.60); RDW 16.1 % (11.9-15.9); WHITE BLOOD COUNT 5.9 K/mm3 (4.0-10.0)
[2018-09-12 03:04] LABS: INR 1.14 (0.83-1.09); PROTHROMBIN TIME (PATIENT) 13.5 SEC (9.7-13.0)
[2018-09-12 03:11] LABS: ALBUMIN 2.7 g/dl (3.4-5.0); ALK PHOS 113 U/L (45-117); ANION GAP 7 MMOL/L (8-16); BILIRUBIN,TOTAL 0.4 mg/dL (0.2-1); BLOOD UREA NITROGEN 32 mg/dL (7-18); CALCIUM 8.5 mg/dL (8.5-10.1); CHLORIDE 106 mmol/L (98-107); CO2 25 mmol/L (21-32); CREATININE 4.9 mg/dL (0.55-1.3); GLUCOSE,RANDOM 110 mg/dL (74-106); POTASSIUM 4.4 mmol/L (3.5-5.1); SGOT/AST 18 U/L (15-37); SGPT/ALT 18 U/L (13-61); SODIUM 139 mmol/L (136-145); TOT PROT 6.9 g/dl (6.4-8.2)
--- NOTE | 2018-09-12 03:50 | PDOC ---
*Physical Exam - Vital Signs Last Vital Signs Temp Pulse Resp BP Pulse Ox 98.6 F 67 13 125/81 96 09/12/18 01:10 09/12/18 03:37 09/12/18 03:37 09/12/18 03:37 09/12/18 03:37 ED Treatment Course - LABORATORY CBC & Chemistry Diagram: 09/12/18 02:33 09/12/18 02:33 - ADDITIONAL ORDERS Additional order review: Laboratory Results 09/12/18 09/12/18 09/12/18 02:33 02:33 02:33 PT with INR 13.50 H INR 1.14 H Sodium 139 Potassium 4.4 Chloride 106 Carbon Dioxide 25 Anion Gap 7 L BUN 32 H Creatinine 4.9 H Creat Clearance w eGFR 13.51 Random Glucose 110 H Calcium 8.5 Total Bilirubin 0.4 AST 18 ALT 18 Alkaline Phosphatase 113 Troponin I < 0.02 Total Protein 6.9 Albumin 2.7 L 09/12/18 02:33 RBC 3.33 L MCV 90.1 MCHC 34.1 RDW 16.1 H MPV 7.9 Neutrophils % 63.8 Lymphocytes % 18.6 Monocytes % 8.0 Eosinophils % 8.5 H Basophils % 1.1 - Additional Consults Time Called: 02:27 (Paged Dr. Inman) Consult/PCP: Cardiothroacic surgeon - [facility]. Medical Decision Making - Medical Decision Making 09/12/18 03:48 Pt signed out to me. He has a hx of Aortic aneurysm/dissection type A (Repaired 12/31/17)and type B. Most recently, Harrison B was endovascularly repaired in Aug 31 by [facility]. He signed out AMA and a spinal drain was removed from his back. Pt comes to our hospital now with low back pain. He was here on Sep 09 for pain going down his legs, and at that time exam labs were normal and CTA of chest abd pelvis was unchanged from previous. Now pt states back pain. I spoke to Dr. Schuler or cardiac surg who tells me that pt belongs to the Vascular team, as he was recently repaired by endovasc means. 09/12/18 04:08 I spoke to Vas Surg attending Dr. Dejesus, who accepts the patient to the ER. Pt will be transferred to [facility]. [place] side attdg Dr. Mabry aware. *DC/Admit/Observation/Transfer Diagnosis at time of Disposition: S/P AVR, Aortic dissection, ESRD (end stage renal disease) on dialysis, Low back pain - Discharge Dispostion Disposition: TRANSFER ACUTE CARE/OTHER HOSP Condition at time of disposition: Guarded - Referrals - Patient Instructions - Post Discharge Activity
[2018-09-12 05:38] VITALS: BP 149/79; PULSE 70
--- NOTE | 2018-09-12 11:08 | EKG ---
Test Reason : Blood Pressure : / mmHG Vent. Rate : 064 BPM Atrial Rate : 064 BPM P-R Int : 146 ms QRS Dur : 094 ms QT Int : 440 ms P-R-T Axes : 009 087 143 degrees QTc Int : 453 ms NORMAL SINUS RHYTHM LEFT VENTRICULAR HYPERTROPHY WITH REPOLARIZATION ABNORMALITY ABNORMAL ECG WHEN COMPARED WITH ECG OF 09-SEP-2018 08:25, NO SIGNIFICANT CHANGE WAS FOUND Confirmed by NICHOLAS CROWLEY MD ([id number]) on 09/12/2018 11:08:11 AM Referred By: Confirmed By:NICHOLAS CROWLEY MD
== END 2018-09-12 05:45 | disposition short-term general hospital (02) ==
LOC: JER 00:01
DX: M54.41 Lumbago with sciatica, right side (principal); I71.00 Dissection of unspecified site of aorta; I13.11 Hypertensive heart and chronic kidney disease without heart failure, with stage 5 chronic kidney disease, or end stage renal disease; N18.6 End stage renal disease; N17.9 Acute kidney failure, unspecified; Z99.2 Dependence on renal dialysis; F43.10 Post-traumatic stress disorder, unspecified; G40.909 Epilepsy, unspecified, not intractable, without status epilepticus
CPT/HCPCS: 36415; 71045-TC-FY; 80053; 84484; 85025; 85610; 93005; 93010; 99284-25

== ENCOUNTER 2018-11-23 14:09 | Inpatient (IN) | payer OTHER ==
--- NOTE | 2018-11-23 14:23 | PDOC ---
Rapid Medical Evaluation Chief Complaint: CVA/TIA Medical Evaluation: Allergies Allergy/AdvReac Type Severity Reaction Status Date / Time No Known Allergies Allergy Verified 11/23/18 14:19 Vital Signs Temp Pulse Resp BP Pulse Ox 98.5 F 83 19 211/141 H 100 11/23/18 14:16 11/23/18 14:16 11/23/18 14:16 11/23/18 14:16 11/23/18 14:16 11/23/18 14:21 I have performed a brief in-person evaluation of this patient. The patient presents with a chief complaint of: R sided weakness started at noon Pertinent physical exam findings: Difficulty with ambulation I have ordered the following: Stroke protocol The patient will proceed to the ED for further evaluation. Discharge Disposition - Diagnosis Weakness (Ruled Out): operations involving weapon of mass destruction - Referrals - Patient Instructions - Post Discharge Activity
[2018-11-23] MEDS ORDERED: SODIUM CHLORIDE 1,000 ML IV SCH ×2 (14:30→18:30)
[2018-11-23] MEDS ORDERED: LABETALOL HCL 5 MG/1 ML (100MG/20 ML VIAL) IVPUSH ONE ×3 (14:54→15:38)
[2018-11-23] MEDS ORDERED: ALTEPLASE 100MG 100 MG IVPB ONE (14:54)
[2018-11-23] MEDS ORDERED: niCARdipine HCL 25 MG/10 ML AMPUL IVPB ONE (15:00)
[2018-11-23 15:01] LABS: BASO % 0.8 % (0-2.0); EOS % 1.5 % (0-4.5); HEMATOCRIT 40.8 % (35.4-49); HEMOGLOBIN 13.9 GM/dL (11.7-16.9); LYMPH % 19.8 % (8-40); MCH 31.5 pg (25.7-33.7); MCHC 34.1 g/dl (32.0-35.9); MEAN CELL VOLUME 92.6 fl (80-96); MEAN PLT VOLUME 8.6 fl (7.5-11.1); MONO % 8.2 % (3.8-10.2); NEUT % 69.7 % (42.8-82.8); PLATELET COUNT 200 K/MM3 (134-434); RDW 15.7 % (11.9-15.9); WHITE BLOOD COUNT 5.3 K/mm3 (4.0-10.0)
[2018-11-23] MEDS ORDERED: LABETALOL HCL 5 MG/1 ML (200MG/40ML VIAL) IVPB ONE (15:02)
[2018-11-23 15:14] LABS: INR 1.02 (0.83-1.09)
--- NOTE | 2018-11-23 15:16 | PDOC ---
History of Present Illness - General Chief Complaint: CVA/TIA Stated Complaint: DISORIENTED Time Seen by Provider: 11/23/18 14:20 History Source: Patient, Significant Other Exam Limitations: No Limitations - History of Present Illness Initial Comments: 11/23/18 15:12 Code ta protocol initiated in triage. Pt evaluated. Hx from patient and significant other. Pt awoke around noon and ambulated to the bathroom without difficulty. Upon returning to the bed, the significant other states that at that time, he had difficulty and fell out of bed, attempted to get back in bed and fell again. Called EMS and presented to ED Past History - Past Medical History Allergies/Adverse Reactions: Allergies Allergy/AdvReac Type Severity Reaction Status Date / Time No Known Allergies Allergy Verified 11/23/18 14:19 Home Medications: Ambulatory Orders Aspirin [ASA -] 81 mg PO DAILY 10/19/15 Amlodipine Besylate [Norvasc -] 10 mg PO DAILY #30 tablet 06/27/18 Atorvastatin Ca [Lipitor] 80 mg PO HS #30 tab 06/27/18 Famotidine [Pepcid] 20 mg PO DAILY 06/27/18 Labetalol HCl [Normodyne -] 400 mg PO TID 09/09/18 Cardiac Disorders: Yes COPD: No Dialysis: Yes (T,T,SAT) Disorders: Yes (RENAL FAILURE-PREPARING FOR DIALYSIS) HTN: Yes Psychiatric Problems: Yes (PTSD) Seizures: Yes (epilepsy) - Surgical History Abdominal Surgery: Yes (2 hernia repair) Cardiac Surgery: Yes (VALVE REPLACEMENT) - Immunization History Immunization Up to Date: Yes - Suicide/Smoking/Psychosocial Hx Smoking History: Unknown if ever smoked Have you smoked in the past 12 months: No Number of Cigarettes Smoked Daily: 4 Information on smoking cessation initiated: No Hx Alcohol Use: No Drug/Substance Use Hx: No Substance Use Type: None Review of Systems - Review of Systems HEENTM: No: Blurred Vision, Double Vision Respiratory: No: Cough, Shortness of Breath Cardiac (ROS): No: Chest Pain, Irregular Heart Rate, Palpitations ABD/GI: No: Abdominal Distended *Physical Exam - Vital Signs Last Vital Signs Temp Pulse Resp BP Pulse Ox 98.5 F 83 19 211/141 H 100 11/23/18 14:16 11/23/18 14:16 11/23/18 14:16 11/23/18 14:16 11/23/18 14:16 - Physical Exam Comments: 11/23/18 14:30 GEN: no acute distress HEENT: PERRL, EOMI HEART: RRR, no murmurs LUNGS: CTA b/l NEURO: Right facial droop, 0/5 strength in RUE, 1/5 strength in RLE, 5/5 strength in LUE and LLE 11/23/18 15:39 NEURO: Right facial droop unchanged, 0/5 strength RUE, 3/5 strength in RLE, able to raise RLE for 3 seconds NIH Stroke Scale - Last Known Well Date/Time & Onset Date Last Known Well: 11/23/18 Time Last Known Well: 12:00 - Initial Evaluation Level of consciousness: Alert Ask patient the month and their age: Both incorrect Ask patient to open & close eyes; make fist and let go: Obeys both correctly Best gaze (horizontal eye movement): Normal Visual field testing: No visual field loss Facial paresis (Show teeth/raise eyebrows/close eyes tight): Complete paralysis of one or both sides (Upper and lower face) Motor Function: Left Arm: Normal Motor Function: Right Arm: No movement Motor Function: Left Leg: Normal (extends leg 30 degrees for 5 seconds without drift) Motor Function: Right Leg: No effort against gravity Limb Ataxia: Present in one limb Sensory(Use pinprick test arms,legs,trunk,face/side to side): Severe to total sensory loss Best language (Describe picture, name items, read sentences): Mild to moderate aphasia Dysarthria (read several words): Near unintelligible or unable to speak Extinction and Inattention: No abnormality - Total Score NIH Stroke Scale Score: 18 tPA Exclusion checklist 3-4.5h - Time Elapsed Date last known well: 11/23/18 Time last known well: 12:00 Elaspsed time: Day(s) and 8 Hour(s) and 13 Minutes - Thrombolytic Therapy Candidate Is patient eligible for thrombolytic therapy: Yes - Exclusion Criteria 3-4.5 hr SBP greater than 185 or DBP greater than 110mmHg despite tx: Yes Recent IC/spinal surgery,head trauma or stroke<3mos.: No Hx IC hemorrhage, IC neoplasm, AV malformation or aneurysm: No Active internal bleeding: No Blding diathesis(low plt ct, inc PTT,INR>1.7 or use of NOAC): No Symptoms suggest subarachnoid hemorrhage: No Arterial puncture at noncompressible site in previous 7 days: No Blood glucose concentration less than 50mg/dL (2.7mmol/L): No - Relative Exclusion Criteria 3-4.5 hr Life expectancy <1 yr or severe co-morbid illness: No : No Patient/family refused: No Rapid improvement: No Stroke severity too mild: No Recent acute PR (w/in previous 3 months): No Seizure at onset with postictal residual neuro impairments: No Major surgery or serious trauma w/in previous 14 days: No Recent GI or hemorrhage (w/in previous 21 days): No - Add'l Relative Exclusion 3-4.5 hr Age > 80: No Hx of both diabetes AND prior ischemic stroke: No Taking an oral anticoagulant regardless of INR: No Moderate Sedation - Procedure Monitoring Vital Signs: Procedure Monitoring Vital Signs Temperature 98.5 F 11/23/18 14:16 Pulse Rate 83 11/23/18 14:16 Respiratory Rate 19 11/23/18 14:16 Blood Pressure 211/141 H 11/23/18 14:16 O2 Sat by Pulse Oximetry (%) 100 11/23/18 14:16 Critical Care Time/MDM Note - Medical Decision Making Note: 11/23/18 14:30 B.P. 211/141. Case discussed with Dr. Marcano (neurology) who recommended blood pressure control and reevaluation. Differential Dx consists of acute ischemic CVA vs HTN emergency. Will give labetalol 20 mg IV and reassess b.p. Once b.p under 185/110, will reassess and if still symptomatic without improvement consider tPA vs transfer for embolectomy as per neurology. Will order CT Angio Brain in the mean time as per neurology. 11/23/18 15:18 Repeat b.p 204/118. Will give second dose of labetalol 20 mg IV and reassess b.p. 11/23/18 15:45 Repeat b.p 188/135. Unable to perform CTA as Cr noted 3.3. Discussed again with Dr. Marcano who recommends continuing blood pressure management and treatment of likely HTN Emergency for now and to hold off on thrombolytics. Also recommends MRI brain and Urine toxicology. Labetalol 40 mg IV given. 11/23/18 16:03 B.p now 178/114. Will start labetalol drip and titrate to maintain MAP to around 125. (30% reduction from initial b.p) 11/23/18 16:24 B.p now 164/95. Pt now able to raise his right arm. though still with 3/5 strength. 11/23/18 16:50 Case discussed with ICU team who will evaluate the patient. Microblog sent to Hospitalist for Admission due to hypertensive emergency. 11/23/18 17:30 Case discussed with hospitalist who will accept for admission. 11/23/18 17:45 B.P. noted 195/127. Labetalol drip started at 1 mg/minute with titration parameters to keep MAP between 125-130 overnight. *DC/Admit/Observation/Transfer Diagnosis at time of Disposition: Weakness, Hypertension, Hypertensive emergency - Discharge Dispostion Condition at time of disposition: Guarded Decision to Admit order: Yes - Referrals - Patient Instructions - Post Discharge Activity
[2018-11-23 15:31] LABS: CO2 28 mmol/L (21-32); CREATININE 3.3 mg/dL (0.55-1.3)
[2018-11-23 15:33] LABS: ALBUMIN 3.4 g/dl (3.4-5.0)
[2018-11-23 15:34] LABS: ALK PHOS 158 U/L (45-117); ANION GAP 7 MMOL/L (8-16); BILIRUBIN,TOTAL 0.7 mg/dL (0.2-1); BLOOD UREA NITROGEN 27 mg/dL (7-18); CALCIUM 8.9 mg/dL (8.5-10.1); CHLORIDE 104 mmol/L (98-107); CHOLESTEROL 173 mg/dL (50-200); GLUCOSE,RANDOM 98 mg/dL (74-106); HDL CHOLESTEROL 36 mg/dL (40-60); POTASSIUM 4.3 mmol/L (3.5-5.1); SGOT/AST 22 U/L (15-37); SGPT/ALT 16 U/L (13-61); SODIUM 139 mmol/L (136-145); TOT PROT 7.8 g/dl (6.4-8.2); TRIGLYCERIDES 169 mg/dL (0-150)
--- NOTE | 2018-11-23 15:49 | PDOC ---
Attending Attestation - Resident Resident Name: Lamonte Granda - ED Attending Attestation I have performed the following: I have examined & evaluated the patient, The case was reviewed & discussed with the resident, I agree w/resident's findings & plan, Exceptions are as noted - HPI HPI: 11/23/18 15:34 Patient was initially seen by PA in E. Code ortiz was activated. I evaluated the patient upon return from CT. Patient is a 38-year-old male with history of hypertension, polysubstance abuse , aortic dissection) repaired) who presents to the ER with sudden onset of right hemiparesis that occurred approximately 12 PM on the day of arrival. Patient is unable to provide detailed history and his significant other is providing the history for him. - Physicial Exam PE: 11/23/18 15:35 Patient is awake and alert, dysarthric, attempts to follow commands Normocephalic, atraumatic PERRLA, EOMI Right-sided facial asymmetry with flattening of the right nasolabial fold and weakness of the brachial hours or us on the right No carotid bruits cta rrr neuro: RUE: 0/5; LUE: 5/5; RLE: 0/5; LLE: 5/5, + babinsky on right - Medical Decision Making 11/23/18 15:49 Patient's 38-year-old male with history of hypertension, polysubstance abuse, aortic dissections presents with hypertensive emergency associated with dense right hemiplegia involvement of the right side of face, arm and right leg. CT of head shows no evidence of acute intracranial hemorrhage, a calcification is noted measuring 0.4 cm. Case discussed with Dr. Oconnor of neurology on several occasions since the patient presentation. At this time, he suspects hypertensive emergency and TPA will be deferred at this time. We're unable to perform CTA of brain at this time given the elevated creatinine of 3.3. Patient will be treated with IV labetalol and will be admitted to the ICU for further evaluation and treatment. 11/23/18 16:38 Patient is received labetalol-20 mg IV push, followed by another 20 were grams IV push followed by 40 mg IV push. Current blood pressure is noted to be 166/ 94. On repeat exam, patient is now able to flex his right knee and right hip as well as raise his right arm off the stretcher. Patient is still unable to the verbalize with severe dysarthria. Will continue his planned.
[2018-11-23] MEDS ORDERED: LABETALOL HCL INJECTION 1,000 MG in DEXTROSE 5%-WATER - 800 ML IV SCH ×2 (16:15→17:45)
[2018-11-23 17:23] LABS: URINE APPEARANCE CLEAR; URINE BILIRUBIN NEGATIVE (<2.0 mg/dL); URINE COLOR YELLOW; URINE GLUCOSE (UA) NEGATIVE (NEGATIVE); URINE KETONE NEGATIVE (NEGATIVE); URINE LEUK ESTERASE NEGATIVE (NEGATIVE); URINE NITRITE NEGATIVE (NEGATIVE); URINE PROTEIN 2+ (NEGATIVE); URINE UROBILINOGEN NEGATIVE mg/dL (0.2-1.0)
[2018-11-23 17:35] LABS: EPI CELLS RARE /HPF (FEW); URINE MUCUS RARE
--- NOTE | 2018-11-23 17:45 | HP ---
Admitting History and Physical - Admission Chief Complaint: right sided hemiplegia, multiple falls History of Present Illness: 38 year old M with h/o HTN, epilepsy and PTSD, CKD (previously on HD) who presents to the emergency department via car after experiencing right sided weakness which commenced around 12noon. As per pt's [id number], he got up from sleep around noon and ambulated to use the bathroom. Upon returning to bed , he fell from his bed on two consecutive occasions due to loss of balance and decreased sensation on his right side. It was at this point that his noted that he was unable to speak and had notable right sided weakness. His female partner assisted him to the bathroom where she bathed and dressed him in preparation to go to ED. Since they live on the second floor of a two family house, his noted that patient had difficulty ambulating down the stairs and was dragging his right leg. Lexa denies headache, visual disturbance, dizziness, LOC, palpitations or SOB. She proceeded to drive him to the ED, where upon arrival a stroke code was activated due to Right facial droop, 0/5 strength in RUE, 1/5 strength in RLE. Vitals in ED 211/141mmHg, HR 83bpm, RR 19, T 98.5, O2 sat 100%. The case was reviewed with neurology (Dr. Marcano), who recommended blood pressure control and reevaluation of symptoms. Pt was given Labetalol 20mg IVP x 2 doses with BP decreasing to 188/135mmHG (labetalol 40mg IVP + drip started) for MAP goal 125mmHg. With improvement in BP, pt was able to move his right upper and lower extremities. STAT head CT: demonstrated no evidence of acute intracranial hemorrhage, a calcification is noted measuring 0.4 cm. TPA was deferred. EKG: SR with TWI lateral leads LAbs: Serum Cr 3.3, UTOX + PCP, + THC Brain MRI done while in ED: result pending Decision made to admit patient to ICU for intensive management. 8:30pm Results of MRI: Left middle cerebral artery territory acute infarct. History Source: Patient, Significant Other, Medical Record Limitations to Obtaining History: No Limitations, Clinical Condition, Physical Impairment - Past Medical History PROJECT LEAD: Yes: Seizure Cardiovascular: Yes: HTN, Other (aoritc valve replacement) Renal/: Yes: Renal Inusuff Psych: Yes: Other (PTSD) Musculoskeletal: Yes: Chronic low back pain - Past Surgical History Past Surgical History: Yes: AAA Repair Additional Past Surgical History: Hernia Repair x2 (during childhood) AI s/p TAVR (12/31/17), and 06/2018, repeat TAVR 08/31/18 Type A aortic dissection (12/2017) to right iliac artery s/p emergency dissection repair with replacement of the aorta, prior TDC placement for HD - Smoking History Smoking history: Current every day smoker Have you smoked in the past 12 months: No Aproximately how many cigarettes per day: 4 (x 11years) - Alcohol/Substance Use Hx Alcohol Use: No History of Substance Use: reports: Marijuana (PCP use also) - Social History Usual Living Arrangement: Yes: Other (Lives with female partner in [place] house ) ADL: Independent Occupation: unemployed History of Recent Travel: No Other Social History: HCP: mother Diamond Sims [phone]. Prior HD center : [facility] [phone] Home Medications - Allergies Allergies/Adverse Reactions: Allergies Allergy/AdvReac Type Severity Reaction Status Date / Time No Known Allergies Allergy Verified 11/23/18 14:19 - Home Medications Home Medications: Ambulatory Orders Aspirin [ASA -] 81 mg PO DAILY 10/19/15 Amlodipine Besylate [Norvasc -] 10 mg PO DAILY #30 tablet 06/27/18 Atorvastatin Ca [Lipitor] 80 mg PO HS #30 tab 06/27/18 Famotidine [Pepcid] 20 mg PO DAILY 06/27/18 Labetalol HCl [Normodyne -] 400 mg PO TID 09/09/18 Family Disease History - Family Disease History Family Disease History: Other: Father (well), Mother (HTN), Brother (well), Sister (well) Review of Systems - Review of Systems Constitutional: reports: Lethargy, Weakness Eyes: reports: No Symptoms HENT: reports: Difficult Swallowing Neck: reports: No Symptoms Cardiovascular: reports: No Symptoms Respiratory: reports: No Symptoms Gastrointestinal: reports: No Symptoms Genitourinary: reports: No Symptoms Musculoskeletal: reports: Decreased ROM, Muscle Weakness Integumentary: reports: No Symptoms Neurological: reports: Change in Speech, Incoordination, Parasthesia, Unsteady Gait, Weakness Endocrine: reports: No Symptoms Hematology/Lymphatic: reports: No Symptoms Psychiatric: reports: No Symptoms Physical Examination Vital Signs: Vital Signs Temperature 98.5 F 11/23/18 14:16 Pulse Rate 77 11/23/18 16:16 Respiratory Rate 19 11/23/18 16:16 Blood Pressure 164/95 11/23/18 16:16 O2 Sat by Pulse Oximetry (%) 100 11/23/18 16:16 Constitutional: Yes: Calm Eyes: Yes: Conjunctiva Clear, PERRL (Right: 2mm Left 4mm) HENT: Yes: Atraumatic, Normocephalic Neck: Yes: Supple, Decreased ROM Cardiovascular: Yes: Regular Rate and Rhythm, S1, S2, S4 Respiratory: Yes: Regular, CTA Bilaterally Gastrointestinal: Yes: Soft, Hypoactive Bowel Sounds ...Rectal Exam: Yes: Deferred Renal/: Yes: Other (voids freely) Musculoskeletal: Yes: Muscle Weakness Edema: No Peripheral Pulses WNL: Yes Integumentary: Yes: Tattoos Neurological: Yes: Alert, Oriented, Aphasia, Facial Droop, Unsteady Gait, Weakness Psychiatric: Yes: Alert, Oriented Labs: CBC, BMP 11/23/18 14:46 11/23/18 14:46 Imaging - Results Chest X-ray: Pending, Report Reviewed (CXR 11/23/2018 Moderate to marked dilatation of the aortic arch that appears to be more prominent since prior CXR dated 09/12/2018 and may be at least partially due to technique/positioning. Evaluation of the lung appears unremarkable.) Cat Scan: Report Reviewed (Head CT 11/23/2018 Impression: No acute intracranial pathology. 0.4cm right frotnal periventricular calcification is seen - > inflammatory vs. infectious.) Ultrasound: Report Reviewed MRI: Report Reviewed (MRI brain 11/23/2018 Impression: Left middle cerebral artery territory acute infarct. Chronic lacunar infarct in the left thalamus, anteriorly. Likely tiny bilateral cerebral chronic hemorrhagic lacunar infarcts , as described above. Focal cortical encephalomalacia/chronic infarct in the left occipital lobe. Significant attenuated /no flow seen within the left M2 branches. Poor visualization at the junction of the left M1 and M2 segment. Flow void is present in the proximal left M1 segment. Correlation with MRA of the brain is needed for further evaluation. A preliminary report was forwarded by the [facility] service, [employer]PERATOR [employer]PER.) Other: Report Reviewed (carotid doppler 11/23/2018 Impression: Intimal thickening and miniaml plaque buildup at the right common carotid bifurcation with a couple of tiny plaques at the left common carotid bifurcation/bulb and without evidence of hemodynamically significant stenosis bilaterally.) Problem List - Problems (1) CKD (chronic kidney disease) stage 4, GFR 15-29 ml/min Assessment/Plan: strict intake and output renal consult in AM daily weights trend Cr and electrolytes Code(s): N18.4 - CHRONIC KIDNEY DISEASE, STAGE 4 (SEVERE) (2) Hypertensive emergency Assessment/Plan: admit to ICU Labetalol drip, goal MAP as per neuro 125mmHG (keep SBP 170-180s for cerebral perfusion) frequent neuro checks Vitals q30min Code(s): I16.1 - HYPERTENSIVE EMERGENCY (3) Acute ischemic left MCA stroke Assessment/Plan: Neuro (Dr. Marcano) discussed case with accepting physician Dr. 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 Marcano. Transfer set in motion. No bed available overnight, pt will most likely be transferred tomorrow 11/23. unable to start statin due to high aspiration risk. consider NGT placement. Code(s): I63.512 - CEREB INFRC D/T UNSP OCCLS OR STENOS OF LEFT MID CEREB ART Assessment/Plan PPX -NPO, pt failed speech and swallow -heparin 5000u TID -fall precautions -SCDs DISPO: Full code Visit type - Emergency Visit Emergency Visit: Yes ED Registration Date: 11/23/18 Care time: The patient presented to the Emergency Department on the above date and was hospitalized for further evaluation of their emergent condition. - New Patient This patient is new to me today: Yes Date on this admission: 11/23/18 - Critical Care Critical Care patient: Yes Total Critical Care Time (in minutes): 70 Critical Care Statement: The care of this patient involved high complexity decision making to prevent further life threatening deterioration of the patient 's condition and/or to evaluate & treat vital organ system(s) failure or risk of failure.
[2018-11-23] MEDS ORDERED: POTASSIUM CHLORIDE ORAL LIQUID 20 MEQ/15 ML PO ONE (17:47)
--- NOTE | 2018-11-23 17:49 | CONSULT ---
Consultation: REQUESTING PROVIDER: CONSULT REQUEST: We have been asked to medically evaluate this patient for admission to ICU. HISTORY OF PRESENT ILLNESS: 38 y/o M with PMHx of ESRD (Previously on HD), Aortic Valve Replacement, HTN, Seizures, PTSD, Polysubstance abuse, Repaired Aortic Dissection presents with Right sided Hemiparesis. During my interview, patient remains aphasic and has some dysarthria, thus the history was provided by his girlfriend Radha, present at bedside. Around noon, after ambulating to the restroom, patient felt difficulty entering his bed and fell twice. Radha explained that the patient was confused and disoriented at this time accompanied by hemiparesis over his right upper and lower extremity; at baseline patient is able to ambulate and speak without difficulty. She then proceeded to help him shower however the patient was unable to stand up. This is the first time he has experienced these symptoms. Patient said he is medication compliant and did take his medications today. Shortly after, the patient and his girlfriend drove to [facility] ED. She denies any convulsions or loss of bowel/bladder control on onset. Additionally denies any recent medication changes. As per EMR, Upon arrival in the ED, patient was found to have a BP of 211/141 and presented with Right-sided facial asymmetry and 0/5 muscle strength in the Right upper and lower extremity. Initial labwork revealed a Cr of 3.[address] Head did not reveal any evidence of acute intracranial pathology. Neurology was contacted by the ED who recommended BP Control and tPA deferral at this time. Patient was given 80mg IV labetalol in the ED; BP was 165/94 during my interview. Patient denies any recent fevers, chills, chest pain, SOB, nausea, vomiting, diarrhea, constipation, palpitations , recent trauma. REVIEW OF SYSTEMS: As per HPI PHYSICAL EXAMINATION Vital Signs - 24 hr 11/23/18 11/23/18 11/23/18 14:16 15:00 15:17 Temperature 98.5 F Pulse Rate 83 Pulse Rate [ Right Radial] Respiratory 19 Rate Blood Pressure 211/141 H Blood Pressure 220/139 H 204/118 H [Left Arm] Blood Pressure [Right Arm] O2 Sat by Pulse 100 97 Oximetry (%) 11/23/18 11/23/18 11/23/18 15:30 15:33 16:05 Temperature Pulse Rate Pulse Rate [ 74 75 Right Radial] Respiratory 16 20 Rate Blood Pressure Blood Pressure 210/150 H 187/125 H [Left Arm] Blood Pressure 198/148 H 178/114 H [Right Arm] O2 Sat by Pulse 97 98 Oximetry (%) 11/23/18 16:16 Temperature Pulse Rate Pulse Rate [ 77 Right Radial] Respiratory 19 Rate Blood Pressure Blood Pressure 164/95 [Left Arm] Blood Pressure [Right Arm] O2 Sat by Pulse 100 Oximetry (%) GENERAL: A&Ox3, NAD HEAD: NCAT EYES: Left pupil dilated, Pupils round and reactive to light, EOMI EARS, NOSE, THROAT: Moist mucous membranes. NECK: Supple, No JVD LUNGS: Diminished breath sounds at the bases. No wheezes, no crackles. HEART: Regular rate and rhythm, normal S1 and S2 without murmur ABDOMEN: Soft, nontender, not distended, + bowel sounds, no guarding MUSCULOSKELETAL: No CVA tenderness. EXTREMITIES: No peripheral edema NEUROLOGICAL: Gross sensation intact throughout. Dysarthric. Muscle strength 5/ 5 in the LUE and LLE; 3/5 in the RUE and RLE. SKIN: Warm, dry. Multiple scars present abdomen. Laboratory Results - last 24 hr 11/23/18 11/23/18 11/23/18 14:46 14:46 14:46 WBC 5.3 RBC 4.40 Hgb 13.9 Hct 40.8 D MCV 92.6 MCH 31.5 MCHC 34.1 RDW 15.7 Plt Count 200 D MPV 8.6 Absolute Neuts (auto) 3.7 Neutrophils % 69.7 Lymphocytes % 19.8 Monocytes % 8.2 Eosinophils % 1.5 D Basophils % 0.8 Nucleated RBC % 0 PT with INR 12.00 INR 1.02 Sodium 139 Potassium 4.3 Chloride 104 Carbon Dioxide 28 Anion Gap 7 L BUN 27 H Creatinine 3.3 H Creat Clearance w eGFR 21.32 Random Glucose 98 Calcium 8.9 Total Bilirubin 0.7 AST 22 ALT 16 Alkaline Phosphatase 158 H Creatine Kinase 163 Creatine Kinase Index 0.6 CK-MB (CK-2) 1.1 Troponin I 0.04 Total Protein 7.8 Albumin 3.4 Triglycerides 169 H Cholesterol 173 Total LDL Cholesterol 112 H HDL Cholesterol 36 L Urine Color Urine Appearance Urine pH Ur Specific Mayo Urine Protein Urine Glucose (UA) Urine Ketones Urine Blood Urine Nitrite Urine Bilirubin Urine Urobilinogen Ur Leukocyte Esterase Blood Type Antibody Screen 11/23/18 11/23/18 14:46 17:02 WBC RBC Hgb Hct MCV MCH MCHC RDW Plt Count MPV Absolute Neuts (auto) Neutrophils % Lymphocytes % Monocytes % Eosinophils % Basophils % Nucleated RBC % PT with INR INR Sodium Potassium Chloride Carbon Dioxide Anion Gap BUN Creatinine Creat Clearance w eGFR Random Glucose Calcium Total Bilirubin AST ALT Alkaline Phosphatase Creatine Kinase Creatine Kinase Index CK-MB (CK-2) Troponin I Total Protein Albumin Triglycerides Cholesterol Total LDL Cholesterol HDL Cholesterol Urine Color Yellow Urine Appearance Clear Urine pH 6.0 Ur Specific Mayo 1.017 Urine Protein 2+ H Urine Glucose (UA) Negative Urine Ketones Negative Urine Blood 1+ H Urine Nitrite Negative Urine Bilirubin Negative Urine Urobilinogen Negative Ur Leukocyte Esterase Negative Blood Type O POSITIVE Antibody Screen Negative Active Medications Sodium Chloride (Normal Saline -) 1,000 mls @ 42 mls/hr IV ASDIR JOSELYN Last Admin: 11/23/18 15:46 Dose: 42 mls/hr Labetalol HCl 1,000 mg/ (Dextrose) 1,000 mls @ 60 mls/hr IV TITR JOSELYN ASSESSMENT/PLAN: 38 y/o M with PMHx of ESRD (Previously on HD), Aortic Valve Replacement, HTN, Seizures, PTSD, Polysubstance abuse, Repaired Aortic Dissection will be monitored in ICU for Hypertensive Emergency. #Neuro Hx of Seizures, PTSD, Polysubstance abuse R/O CVA, Brain MRI Pending -UTox + for Phencyclidine, Marijuana -Carotid Doppler: Intimal thickening and minimal plaque buildup at the right common carotid bifurcation with a couple of tiny plaques at the left common carotid bifurcation/bulb and without evidence of hemodynamically significant stenosis, bilaterally. -Head CT: No CT evidence of acute intracranial pathology. A 0.4 cm right frontal periventricular calcification is seen - ? inflammatory/infectious. -Neuro Checks Q2H -Seizure, Aspiration precautions -Dr. Oconnor consulted -Continue home dose Anti-Seizure med's -Brain MRI w/o contrast pending to r/o CVA #Cardio Hypertensive Emergency Aortic Valve Replacement, HTN, Repaired Aortic Dissection -211/141 --> 164 /95 -s/p 80mg IV Labetalol -Trop 0.04 -Cholesterol panel noted -EKG: NSR, LAE, VR 91, QTc 479; New TWI in I, V5, V6 -Continue home dose Atorvastatin -Started on Labetalol drip to maintain SBP 160-170, DBP 100-110 -Echo pending #Pulm -CXR: Moderate to marked dilatation of the aortic arch that appears to be more prominent since prior chest x-ray dated 09/12/2018 and may be at least partially due to technique/positioning. Prior examination was obtained in a slightly apical lordotic projection. Evaluation of the lung appears unremarkable -Supplemental O2 to maintain SpO2 >90% #GI Elevated Alkaline Phosphatase -Continue to monitor; Will consider imaging if continues to rise #Renal Hx of ESRD (Previously on HD) -Cr 3.3 -Continue NS @ 42 mls/hr #Endo -No active issues, continue to monitor #Heme -No active issues, continue to monitor #ID -Afebrile, without elevated WBC count -UA: 2+ protein, 1+ Blood -Urine Cx pending #FEN -Continue NS @ 42 mls/hr -Lytes WNL -NPO #PPx -DVT: SCDs Dispo: We will continue to follow the patient. Thank you for this consultative opportunity. Visit type - Emergency Visit Emergency Visit: Yes Care time: The patient presented to the Emergency Department on the above date and was hospitalized for further evaluation of their emergent condition. - New Patient This patient is new to me today: Yes Date on this admission: 11/23/18 - Critical Care Critical Care patient: Yes Total Critical Care Time (in minutes): 45 Critical Care Statement: The care of this patient involved high complexity decision making to prevent further life threatening deterioration of the patient 's condition and/or to evaluate & treat vital organ system(s) failure or risk of failure.
[2018-11-23 17:53] LABS: COCAINE, UR NEGATIVE ng/ml (CUTOFF=300); METHADONE, UR NEGATIVE ng/ml (CUTOFF=300); OPIATES, URI NEGATIVE ng/ml (CUTOFF=300); URINE AMPHETAMINES NEGATIVE ng/ml (CUTOFF=500); URINE BARBITURATES NEGATIVE ng/ml (CUTOFF=200); URINE BENZODIAZEPINES NEGATIVE ng/ml (CUTOFF=200)
[2018-11-23 17:55] LABS: PHENCYCLIDINE,URINE POSITIVE ng/ml (CUTOFF=25)
[2018-11-23] MEDS ORDERED: ACETAMINOPHEN 1000 MG/100 ML VIAL (NON FORMULARY) IVPB PRN (18:37)
[2018-11-23] MEDS ORDERED: LABETALOL HCL 5 MG/1 ML (100MG/20 ML VIAL) IVPUSH PRN (18:56)
[2018-11-23 20:49] VITALS: BMI 23.2
[2018-11-23] MEDS ORDERED: FAMOTIDINE 20 MG/50 ML IVPB 20 MG/50 ML MG IVPB SCH (22:00)
[2018-11-23] MEDS: HEPARIN NA (PORCINE) 5,000 UNITS/ML 1ML VIAL SQ SCH (22:14)
[2018-11-24 06:17] LABS: ALBUMIN 2.9 g/dl (3.4-5.0); ALK PHOS 131 U/L (45-117); ANION GAP 6 MMOL/L (8-16); BILIRUBIN,TOTAL 0.8 mg/dL (0.2-1); BLOOD UREA NITROGEN 26 mg/dL (7-18); CALCIUM 8.6 mg/dL (8.5-10.1); CHLORIDE 106 mmol/L (98-107); CO2 26 mmol/L (21-32); CREATININE 3.1 mg/dL (0.55-1.3); GLUCOSE,RANDOM 87 mg/dL (74-106); POTASSIUM 3.7 mmol/L (3.5-5.1); SGOT/AST 14 U/L (15-37); SGPT/ALT 14 U/L (13-61); SODIUM 138 mmol/L (136-145); TOT PROT 6.8 g/dl (6.4-8.2)
[2018-11-24] MEDS: HEPARIN NA (PORCINE) 5,000 UNITS/ML 1ML VIAL SQ SCH (06:40)
[2018-11-24 06:51] LABS: BASO % 0.5 % (0-2.0); EOS % 0.9 % (0-4.5); HEMATOCRIT 36.4 % (35.4-49); HEMOGLOBIN 12.2 GM/dL (11.7-16.9); MCH 30.6 pg (25.7-33.7); MCHC 33.4 g/dl (32.0-35.9); MEAN CELL VOLUME 91.7 fl (80-96); MEAN PLT VOLUME 8.8 fl (7.5-11.1); MONO % 8.9 % (3.8-10.2); NEUT % 63.7 % (42.8-82.8); PLATELET COUNT 194 K/MM3 (134-434); RBC 3.97 M/mm3 (4.00-5.60); RDW 15.4 % (11.9-15.9); WHITE BLOOD COUNT 5.8 K/mm3 (4.0-10.0)
[2018-11-24 06:52] LABS: INR 1.05 (0.83-1.09); PROTHROMBIN TIME (PATIENT) 12.4 SEC (9.7-13.0)
--- NOTE | 2018-11-24 08:24 | PN ---
Physical Exam: SUBJECTIVE: Patient seen and examined this AM. Remains Aphasic however improved. Feels his muscle strength is improving this AM. He denies any new complaints. No overnight blurry vision, chest pain, SOB, palpitations, fevers, chills, nausea, vomiting, diarrhea, constipation. OBJECTIVE: Vital Signs Period Temp Pulse Resp BP Sys/[place] Pulse Ox Last 24 Hr 98.5 F-98.8 F 68-84 11-20 118-220/41-150 96-100 GENERAL: A&Ox2 (Name, Place; Unable to recall month), NAD HEAD: NCAT EYES: Left pupil dilated, Pupils round and reactive to light, EOMI ENT: Moist mucous membranes NECK: Supple, No JVD LUNGS: Diminished breath sounds at the bases. No wheezes, no crackles. HEART: Regular rate and rhythm, normal S1 and S2 without murmur ABDOMEN: Soft, nontender, not distended, + bowel sounds, no guarding MUSCULOSKELETAL: No CVA tenderness EXTREMITIES: No peripheral edema NEUROLOGICAL: Dysarthric and mildly Aphasic. CN II-IV, , VIII intact. Left side lower facial droop. Muscle strength 5/5 in the LUE and LLE; 4/5 in the RUE and RLE. Gross sensation intact throughout. NIHSS 7 this AM SKIN: Warm, dry. Multiple scars present abdomen. Laboratory Last Values WBC 5.8 K/mm3 (4.0-10.0) 11/24/18 05:15 RBC 3.97 M/mm3 (4.00-5.60) L 11/24/18 05:15 Hgb 12.2 GM/dL (11.7-16.9) 11/24/18 05:15 Hct 36.4 % (35.4-49) 11/24/18 05:15 MCV 91.7 fl (80-96) 11/24/18 05:15 MCH 30.6 pg (25.7-33.7) 11/24/18 05:15 MCHC 33.4 g/dl (32.0-35.9) 11/24/18 05:15 RDW 15.4 % (11.9-15.9) 11/24/18 05:15 Plt Count 194 K/MM3 (134-434) 11/24/18 05:15 MPV 8.8 fl (7.5-11.1) 11/24/18 05:15 Absolute Neuts (auto) 3.7 K/mm3 (1.5-8.0) 11/24/18 05:15 Neutrophils % 63.7 % (42.8-82.8) 11/24/18 05:15 Lymphocytes % 26.0 % (8-40) D 11/24/18 05:15 Monocytes % 8.9 % (3.8-10.2) 11/24/18 05:15 Eosinophils % 0.9 % (0-4.5) 11/24/18 05:15 Basophils % 0.5 % (0-2.0) 11/24/18 05:15 Nucleated RBC % 0 % (0-0) 11/24/18 05:15 PT with INR 12.40 SEC (9.7-13.0) 11/24/18 05:15 INR 1.05 (0.83-1.09) 11/24/18 05:15 Sodium 138 mmol/L (136-145) 11/24/18 05:15 Potassium 3.7 mmol/L (3.5-5.1) 11/24/18 05:15 Chloride 106 mmol/L (98-107) 11/24/18 05:15 Carbon Dioxide 26 mmol/L (21-32) 11/24/18 05:15 Anion Gap 6 MMOL/L (8-16) L 11/24/18 05:15 BUN 26 mg/dL (7-18) H 11/24/18 05:15 Creatinine 3.1 mg/dL (0.55-1.3) H 11/24/18 05:15 Creat Clearance w eGFR 22.91 (>60) 11/24/18 05:15 Random Glucose 87 mg/dL (74-106) 11/24/18 05:15 Calcium 8.6 mg/dL (8.5-10.1) 11/24/18 05:15 Total Bilirubin 0.8 mg/dL (0.2-1) 11/24/18 05:15 AST 14 U/L (15-37) L 11/24/18 05:15 ALT 14 U/L (13-61) 11/24/18 05:15 Alkaline Phosphatase 131 U/L (45-117) H 11/24/18 05:15 Creatine Kinase 164 U/L (26-308) 11/24/18 05:15 Creatine Kinase Index 0.7 % (0.0-5.0) 11/24/18 05:15 CK-MB (CK-2) 1.2 ng/mL (0.5-3.6) 11/24/18 05:15 Troponin I 0.05 ng/ml (0.00-0.05) 11/24/18 05:15 Total Protein 6.8 g/dl (6.4-8.2) 11/24/18 05:15 Albumin 2.9 g/dl (3.4-5.0) L 11/24/18 05:15 Triglycerides 169 mg/dL (0-150) H 11/23/18 14:46 Cholesterol 173 mg/dL (50-200) 11/23/18 14:46 Total LDL Cholesterol 112 mg/dL (5-100) H 11/23/18 14:46 HDL Cholesterol 36 mg/dL (40-60) L 11/23/18 14:46 Urine Color Yellow 11/23/18 17:02 Urine Appearance Clear 11/23/18 17:02 Urine pH 6.0 (5.0-8.0) 11/23/18 17:02 Ur Specific [place] 1.017 (1.010-1.035) 11/23/18 17:02 Urine Protein 2+ (NEGATIVE) H 11/23/18 17:02 Urine Glucose (UA) Negative (NEGATIVE) 11/23/18 17:02 Urine Ketones Negative (NEGATIVE) 11/23/18 17:02 Urine Blood 1+ (NEGATIVE) H 11/23/18 17:02 Urine Nitrite Negative (NEGATIVE) 11/23/18 17:02 Urine Bilirubin Negative (<2.0 mg/dL) 11/23/18 17:02 Urine Urobilinogen Negative mg/dL (0.2-1.0) 11/23/18 17:02 Ur Leukocyte Esterase Negative (NEGATIVE) 11/23/18 17:02 Urine WBC (Auto) <1 /hpf (3-5) 11/23/18 17:02 Urine RBC (Auto) 5 /hpf (0-3) 11/23/18 17:02 Ur Epithelial Cells Rare /HPF (FEW) 11/23/18 17:02 Urine Mucus Rare 11/23/18 17:02 Opiates Screen Negative ng/ml (ZSTVWW=753) 11/23/18 17:02 Methadone Screen Negative ng/ml (DKPNUY=219) 11/23/18 17:02 Barbiturate Screen Negative ng/ml (HTFSTQ=340) 11/23/18 17:02 Phencyclidine Screen Positive ng/ml (CUTOFF=25) A* 11/23/18 17:02 Ur Amphetamines Screen Negative ng/ml (LPYKZX=496) 11/23/18 17:02 MDMA (Ecstasy) Screen Negative ng/ml (YOSVTZ=526) 11/23/18 17:02 Benzodiazepines Screen Negative ng/ml (RAUZRL=999) 11/23/18 17:02 Cocaine Screen Negative ng/ml (EGSYJV=048) 11/23/18 17:02 U Marijuana (THC) Screen Positive ng/ml (CUTOFF=50) A* 11/23/18 17:02 Blood Type O POSITIVE 11/23/18 14:46 Antibody Screen Negative 11/23/18 14:46 Active Medications Acetaminophen (Ofirmev Injection -) 1,000 mg IVPB Q8H PRN PRN Reason: FEVER Heparin Sodium (Porcine) (Heparin -) 5,000 unit SQ TID JOSELYN Last Admin: 11/24/18 06:40 Dose: 5,000 unit Sodium Chloride (Normal Saline -) 1,000 mls @ 42 mls/hr IV ASDIR JOESLYN Last Admin: 11/23/18 15:46 Dose: 42 mls/hr Labetalol HCl 1,000 mg/ (Dextrose) 1,000 mls @ 60 mls/hr IV TITR [facility] Last Titration: 11/24/18 03:00 Dose: 0 mg/min, 0 mls/hr Sodium Chloride (Normal Saline -) 1,000 mls @ 42 mls/hr IV ASDIR JOSELYN Last Admin: 11/23/18 18:58 Dose: Not Given Famotidine/Sodium Chloride (Pepcid 20 Mg Premixed Ivpb -) 20 mg in 50 mls @ 100 mls/hr IVPB BID [facility] Last Admin: 11/23/18 22:15 Dose: 100 mls/hr Labetalol HCl (Normodyne Injection -) 20 mg IVPUSH ONCE PRN PRN Reason: HYPERTENSION Last Admin: 11/23/18 19:18 Dose: 20 mg ASSESSMENT/PLAN: 38 y/o M with PMHx of ESRD (Previously on HD), Aortic Valve Replacement, HTN, Seizures, PTSD, Polysubstance abuse, Repaired Aortic Dissection will be monitored in ICU for Hypertensive Emergency. #Neuro Acute Left MCA infarct Hx of Seizures, PTSD, Polysubstance abuse -Brain MRI w/o contrast: Left middle cerebral artery territory acute infarct. Chronic lacunar infarct in the left thalamus, anteriorly. Likely tiny bilateral cerebral chronic hemorrhagic lacunar infarcts, as described above. Focal cortical encephalomalacia/chronic infarct in the left occipital lobe. Significant attenuated /no flow seen within the left M2 branches. Poor visualization at the junction of the left M1 and M2 segment. Flow void is present in the proximal left M1 segment. Correlation with MRA of the brain is needed for further evaluation. -UTox + for Phencyclidine, Marijuana -Neuro Checks Q2H -Seizure, Aspiration precautions -Continue home dose Anti-Seizure med's -Dr. Oconnor consulted -Patient pending transfer to [facility]; Dr. Marcano discussed case with accepting physician Dr. Christophe Gomez. #Cardio Hypertensive Emergency Hx of Aortic Valve Replacement, HTN, Repaired Aortic Dissection -EKG: NSR, LAE, VR 91, QTc 479; New TWI in I, V5, V6 -Trop 0.05 this AM, likely demand from HTN episode -Continue Labetalol drip to maintain SBP 160-170, DBP 100-110, MAP 125 -Vital Signs Q1H -Echo pending -Continue home dose Atorvastatin when taking PO #Pulm -Supplemental O2 to maintain SpO2 >90% #GI Elevated Alkaline Phosphatase, improving -Continue to monitor; Will consider imaging if continues to rise #Renal Hx of ESRD (Previously on HD) -Cr improving this AM -Continue NS @ 42 mls/hr -Monitor I&Os, Cr #Endo -No active issues, continue to monitor #Heme -No active issues, continue to monitor #ID -Afebrile, without leukocytosis -Urine Cx pending -Continue to monitor #FEN -Continue NS @ 42 mls/hr -Lytes WNL -NPO #PPx -DVT: Heparin TID -GI: Famotidine Dispo: Transfer to [facility] pending placement
--- NOTE | 2018-11-24 09:17 | CONSULT ---
Consult - text type - Consultation Consultation Note: Neurology Chief Complaint: right sided hemiplegia, multiple falls History of Present Illness: 38 year old M with h/o HTN, epilepsy and PTSD, CKD (previously on HD) who presents to the emergency department reportedly via car after experiencing right sided weakness which commenced around 12noon on day of admission. Reprotedly, he got up from sleep around noon and ambulated to use the bathroom. Upon returning to bed, he fell from his bed on two consecutive occasions due to loss of balance and decreased sensation on his right side according to notes. It was at this point that his noted that he was unable to speak and had notable right sided weakness. He was assisted to the bathroom. Since they live on the second floor of a two family house, his noted that patient had difficulty ambulating down the stairs and was dragging his right leg. Lexa denied headache, visual disturbance, dizziness, LOC, palpitations or SOB. She proceeded to drive him to the ED, where upon arrival a stroke code was activated due to Right facial droop, 0/5 strength in RUE, 1/5 strength in RLE. Vitals in ED 211/141mmHg, HR 83bpm, RR 19, T 98.5, O2 sat 100%. The case was reviewed with me and I who recommended blood pressure control and reevaluation of symptoms. TPA was being considered and he was given Labetalol 20mg IVP x 2 doses with BP decreasing to 188/135mmHG. With improvement in BP, pt was able to move his right upper and lower extremities. Head CT demonstrated no evidence of acute intracranial hemorrhage, a calcification is noted measuring 0.4 cm. With significant improvement in symptoms and residual deficits limited to dysarthria, TPA was deferred in conversation with ED. Of note, UTOX + PCP, + THC. CTA considered but serum Cr 3.3. Later in evening, I was contacted with results of MRI, showed Left middle cerebral artery territory acute infarct. Spoke with Dr. Pinzon regarding case in detail and was in acceptance of transfer to [facility]. Thereafter spoke with Dr. Nichols and had extensive conversation regarding stroke care, bed not available at the time and no immediate threat for herniation and therefore transfer for this AM was agreed to when bed would be available. Communicated to overnight hospitalist and recommendation to allow permissive HTN overnight. Spoke to ICU nurse at bedside this AM, transfer appears to be momentarily occuring. Patient is reporting improved speech as well the improvement in R sided deficits. Not fully at baseline but improved. 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 Cardiovascular: Yes: HTN, Other (aoritc valve replacement) Renal/: Yes: Renal Inusuff Psych: Yes: Other (PTSD) Musculoskeletal: Yes: Chronic low back pain - Past Surgical History Past Surgical History: Yes: AAA Repair Additional Past Surgical History: Hernia Repair x2 (during childhood) AI s/p TAVR (12/31/17), and 06/2018, repeat TAVR 08/31/18 Type A aortic dissection (12/2017) to right iliac artery s/p emergency dissection repair with replacement of the aorta, prior TDC placement for HD - Smoking History Smoking history: Current every day smoker Have you smoked in the past 12 months: No Aproximately how many cigarettes per day: 4 (x 11years) - Alcohol/Substance Use Hx Alcohol Use: No History of Substance Use: reports: Marijuana (PCP use also) - Social History Usual Living Arrangement: Yes: Other (Lives with female partner in [place] house ) ADL: Independent Occupation: unemployed History of Recent Travel: No Other Social History: HCP: mother Diamond Sims [phone]. Prior HD center : [facility] [phone] Home Medications - Allergies Allergies/Adverse Reactions: Allergies Allergy/AdvReac Type Severity Reaction Status Date / Time No Known Allergies Allergy Verified 11/23/18 14:19 - Home Medications Home Medications: Ambulatory Orders Aspirin [ASA -] 81 mg PO DAILY 10/19/15 Amlodipine Besylate [Norvasc -] 10 mg PO DAILY #30 tablet 06/27/18 Atorvastatin Ca [Lipitor] 80 mg PO HS #30 tab 06/27/18 Famotidine [Pepcid] 20 mg PO DAILY 06/27/18 Labetalol HCl [Normodyne -] 400 mg PO TID 09/09/18 Family Disease History - Family Disease History Family Disease History: Other: Father (well), Mother (HTN), Brother (well), Sister (well) Review of Systems - Review of Systems Constitutional: reports: Lethargy, Weakness Eyes: reports: No Symptoms HENT: reports: Difficult Swallowing Neck: reports: No Symptoms Cardiovascular: reports: No Symptoms Respiratory: reports: No Symptoms Gastrointestinal: reports: No Symptoms Genitourinary: reports: No Symptoms Musculoskeletal: reports: Decreased ROM, Muscle Weakness Integumentary: reports: No Symptoms Neurological: reports: Change in Speech, Incoordination, Parasthesia, Unsteady Gait, Weakness Endocrine: reports: No Symptoms Hematology/Lymphatic: reports: No Symptoms Psychiatric: reports: No Symptoms Physical Examination Vital Signs - 24 hr 11/23/18 11/23/18 11/23/18 14:16 15:00 15:17 Temperature 98.5 F Pulse Rate 83 Pulse Rate [ Right Radial] Respiratory 19 Rate Blood Pressure 211/141 H Blood Pressure 220/139 H 204/118 H [Left Arm] Blood Pressure [Right Arm] O2 Sat by Pulse 100 97 Oximetry (%) 11/23/18 11/23/18 11/23/18 15:30 15:33 16:05 Temperature Pulse Rate Pulse Rate [ 74 75 Right Radial] Respiratory 16 20 Rate Blood Pressure Blood Pressure 210/150 H 187/125 H [Left Arm] Blood Pressure 198/148 H 178/114 H [Right Arm] O2 Sat by Pulse 97 98 Oximetry (%) 11/23/18 11/23/18 11/23/18 16:16 17:40 17:43 Temperature 98.8 F Pulse Rate 77 Pulse Rate [ 77 Right Radial] Respiratory 19 20 Rate Blood Pressure 183/129 H Blood Pressure 164/95 [Left Arm] Blood Pressure 195/127 H [Right Arm] O2 Sat by Pulse 100 96 Oximetry (%) 11/23/18 11/23/18 11/23/18 18:33 19:18 20:00 Temperature Pulse Rate 79 77 Pulse Rate [ Right Radial] Respiratory 17 Rate Blood Pressure 189/112 H 183/129 H Blood Pressure [Left Arm] Blood Pressure 169/103 H [Right Arm] O2 Sat by Pulse Oximetry (%) 11/23/18 11/23/18 11/23/18 20:30 21:00 21:30 Temperature Pulse Rate 84 76 76 Pulse Rate [ Right Radial] Respiratory 16 16 15 Rate Blood Pressure 180/121 H 176/119 H 167/106 H Blood Pressure [Left Arm] Blood Pressure [Right Arm] O2 Sat by Pulse 96 Oximetry (%) 11/23/18 11/23/18 11/23/18 22:00 22:30 23:00 Temperature Pulse Rate 70 73 74 Pulse Rate [ Right Radial] Respiratory 17 15 19 Rate Blood Pressure 170/104 H 165/112 H 155/105 H Blood Pressure [Left Arm] Blood Pressure [Right Arm] O2 Sat by Pulse Oximetry (%) 11/23/18 11/24/18 11/24/18 23:30 00:00 00:30 Temperature Pulse Rate 76 77 75 Pulse Rate [ Right Radial] Respiratory 20 16 11 Rate Blood Pressure 160/106 H 175/109 H 146/97 Blood Pressure [Left Arm] Blood Pressure [Right Arm] O2 Sat by Pulse Oximetry (%) 11/24/18 11/24/18 11/24/18 01:00 01:30 02:00 Temperature 98.8 F Pulse Rate 76 74 71 Pulse Rate [ Right Radial] Respiratory 16 17 17 Rate Blood Pressure 155/106 H 157/95 143/101 H Blood Pressure [Left Arm] Blood Pressure [Right Arm] O2 Sat by Pulse Oximetry (%) 11/24/18 11/24/18 11/24/18 02:30 03:00 03:30 Temperature Pulse Rate 68 72 73 Pulse Rate [ Right Radial] Respiratory 17 20 15 Rate Blood Pressure 163/93 144/41 L 166/93 Blood Pressure [Left Arm] Blood Pressure [Right Arm] O2 Sat by Pulse Oximetry (%) 11/24/18 11/24/18 11/24/18 04:00 04:30 05:00 Temperature Pulse Rate 71 77 76 Pulse Rate [ Right Radial] Respiratory 16 18 18 Rate Blood Pressure 165/98 147/118 H 146/96 Blood Pressure [Left Arm] Blood Pressure [Right Arm] O2 Sat by Pulse Oximetry (%) 11/24/18 11/24/18 11/24/18 05:30 06:00 06:30 Temperature Pulse Rate 71 78 73 Pulse Rate [ Right Radial] Respiratory 20 18 20 Rate Blood Pressure 156/90 118/93 159/108 H Blood Pressure [Left Arm] Blood Pressure [Right Arm] O2 Sat by Pulse Oximetry (%) 11/24/18 11/24/18 11/24/18 07:00 07:30 08:00 Temperature Pulse Rate 69 74 74 Pulse Rate [ Right Radial] Respiratory 17 15 15 Rate Blood Pressure 163/106 H 169/113 H 174/113 H Blood Pressure [Left Arm] Blood Pressure [Right Arm] O2 Sat by Pulse Oximetry (%) 11/24/18 08:30 Temperature 98.4 F Pulse Rate 75 Pulse Rate [ Right Radial] Respiratory 16 Rate Blood Pressure 178/123 H Blood Pressure [Left Arm] Blood Pressure [Right Arm] O2 Sat by Pulse Oximetry (%) Constitutional: Yes: Calm Eyes: Yes: Conjunctiva Clear, PERRL (Right: 2mm Left 4mm) HENT: Yes: Atraumatic, Normocephalic Neck: Yes: Supple, Decreased ROM Cardiovascular: Yes: Regular Rate and Rhythm, S1, S2, S4 Respiratory: Yes: Regular, CTA Bilaterally Gastrointestinal: Yes: Soft, Hypoactive Bowel Sounds ...Rectal Exam: Yes: Deferred Renal/: Yes: Other (voids freely) Musculoskeletal: Yes: Muscle Weakness Edema: No Peripheral Pulses WNL: Yes Integumentary: Yes: Tattoos Neurological: Awake, alert, R facial droop noted, continued dysarthria, moving RUE 4+/5, RLE 5-/5, sensory intact, gait deferred Psychiatric: Yes: Alert, Oriented CBCD WBC 5.8 K/mm3 (4.0-10.0) 11/24/18 05:15 RBC 3.97 M/mm3 (4.00-5.60) L 11/24/18 05:15 Hgb 12.2 GM/dL (11.7-16.9) 11/24/18 05:15 Hct 36.4 % (35.4-49) 11/24/18 05:15 MCV 91.7 fl (80-96) 11/24/18 05:15 MCHC 33.4 g/dl (32.0-35.9) 11/24/18 05:15 RDW 15.4 % (11.9-15.9) 11/24/18 05:15 Plt Count 194 K/MM3 (134-434) 11/24/18 05:15 MPV 8.8 fl (7.5-11.1) 11/24/18 05:15 CMP Sodium 138 mmol/L (136-145) 11/24/18 05:15 Potassium 3.7 mmol/L (3.5-5.1) 11/24/18 05:15 Chloride 106 mmol/L (98-107) 11/24/18 05:15 Carbon Dioxide 26 mmol/L (21-32) 11/24/18 05:15 Anion Gap 6 MMOL/L (8-16) L 11/24/18 05:15 BUN 26 mg/dL (7-18) H 11/24/18 05:15 Creatinine 3.1 mg/dL (0.55-1.3) H 11/24/18 05:15 Creat Clearance w eGFR 22.91 (>60) 11/24/18 05:15 Random Glucose 87 mg/dL (74-106) 11/24/18 05:15 Calcium 8.6 mg/dL (8.5-10.1) 11/24/18 05:15 Total Bilirubin 0.8 mg/dL (0.2-1) 11/24/18 05:15 AST 14 U/L (15-37) L 11/24/18 05:15 ALT 14 U/L (13-61) 11/24/18 05:15 Alkaline Phosphatase 131 U/L (45-117) H 11/24/18 05:15 Total Protein 6.8 g/dl (6.4-8.2) 11/24/18 05:15 Albumin 2.9 g/dl (3.4-5.0) L 11/24/18 05:15 CARDIAC ENZYMES Creatine Kinase 164 U/L (26-308) 11/24/18 05:15 Troponin I 0.05 ng/ml (0.00-0.05) 11/24/18 05:15 Imaging - Results Chest X-ray: Pending, Report Reviewed (CXR 11/23/2018 Moderate to marked dilatation of the aortic arch that appears to be more prominent since prior CXR dated 09/12/2018 and may be at least partially due to technique/positioning. Evaluation of the lung appears unremarkable.) Cat Scan: Report Reviewed (Head CT 11/23/2018 Impression: No acute intracranial pathology. 0.4cm right frotnal periventricular calcification is seen - > inflammatory vs. infectious.) Ultrasound: Report Reviewed MRI: MRI brain 11/23/2018 Impression: Left middle cerebral artery territory acute infarct. Chronic lacunar infarct in the left thalamus, anteriorly. Likely tiny bilateral cerebral chronic hemorrhagic lacunar infarcts, as described above. Focal cortical encephalomalacia/chronic infarct in the left occipital lobe. Significant attenuated /no flow seen within the left M2 branches. Poor visualization at the junction of the left M1 and M2 segment. Flow void is present in the proximal left M1 segment. Correlation with MRA of the brain is needed for further evaluation. 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 Brought to the ED, where upon arrival a stroke code was activated due to Right facial droop, 0/5 strength in RUE, 1/5 strength in RLE. TPA was being considered and he was given Labetalol 20mg IVP x 2 doses with BP decreasing to 188/135mmHG. With improvement in BP, pt was able to move his right upper and lower extremities. Head CT demonstrated no evidence of acute intracranial hemorrhage , a calcification is noted measuring 0.4 cm. With significant improvement in symptoms and residual deficits limited to dysarthria, TPA was deferred in conversation with ED. Of note, UTOX + PCP, + THC. CTA considered but serum Cr 3.3. Later in evening, I was contacted with results of MRI, showed Left middle cerebral artery territory acute infarct. Spoke with Dr. Pinzon regarding case in detail and was in acceptance of transfer to [facility]. Thereafter spoke with Dr. Nichols and had extensive conversation regarding stroke care, bed not available at the time and no immediate threat for herniation and therefore transfer for this AM was agreed to when bed would be available. Communicated to overnight hospitalist and recommendation to allow permissive HTN overnight. Spoke to ICU nurse at bedside this AM, transfer appears to be momentarily occuring. Patient is reporting improved speech as well the improvement in R sided deficits. Not fully at baseline but improved. Agree with transfer, can continue to allow permissive HTN for the 24hr period (noon today). Defer to [facility] stroke services/NSGY team regarding further intervention. Critical care time 80 mins. - Problems (1) CKD (chronic kidney disease) stage 4, GFR 15-29 ml/min Assessment/Plan: strict intake and output renal consult in AM daily weights trend Cr and electrolytes Code(s): N18.4 - CHRONIC KIDNEY DISEASE, STAGE 4 (SEVERE) (2) Hypertensive emergency Assessment/Plan: admit to ICU Labetalol drip, goal MAP as per neuro 125mmHG (keep SBP 170-180s for cerebral perfusion) frequent neuro checks Vitals q30min Code(s): I16.1 - HYPERTENSIVE EMERGENCY (3) Acute ischemic left MCA stroke Assessment/Plan: Neuro (Dr. Marcano) discussed case with accepting physician Dr. Christophe Gomez at [facility] contact manager: Santos @ [phone] Spoke with at [facility] who reviewed images provided by Dr. Marcano. Transfer set in motion. No bed available overnight, pt will most likely be transferred tomorrow 11/23. unable to start statin due to high aspiration risk. consider NGT placement. Code(s): I63.512 - CEREB INFRC D/T UNSP OCCLS OR STENOS OF LEFT MID CEREB ART Assessment/Plan PPX -NPO, pt failed speech and swallow -heparin 5000u TID -fall precautions -SCDs DISPO: Full code Visit type - Emergency Visit Emergency Visit: Yes ED Registration Date: 11/23/18 Care time: The patient presented to the Emergency Department on the above date and was hospitalized for further evaluation of their emergent condition. - New Patient This patient is new to me today: Yes Date on this admission: 11/23/18 - Critical Care Critical Care patient: Yes Total Critical Care Time (in minutes): 70 Critical Care Statement: The care of this patient involved high complexity decision making to prevent further life threatening deterioration of the patient 's condition and/or to evaluate & treat vital organ system(s) failure or risk of failure.
[2018-11-24 09:29] VITALS: BP 144/108; PULSE 74
[2018-11-24 09:49] VITALS: TEMP 98.3
--- NOTE | 2018-11-24 12:16 | DS ---
Physical Exam: SUBJECTIVE: Patient seen and examined OBJECTIVE: Vital Signs Period Temp Pulse Resp BP Sys/[place] Pulse Ox Last 24 Hr 98.3 F-98.8 F 68-84 11-20 118-220/41-150 96-100 PHYSICAL EXAM GENERAL: The patient is awake, alert, and fully oriented, in no acute distress. HEAD: Normal with no signs of trauma. EYES: PERRL, extraocular movements intact, sclera anicteric, conjunctiva clear. ENT: Ears normal, nares patent, oropharynx clear without exudates, moist mucous membranes. NECK: Trachea midline, full range of motion, supple. LUNGS: Breath sounds equal, clear to auscultation bilaterally, no wheezes, no crackles, no accessory muscle use. HEART: Regular rate and rhythm, S1, S2 without murmur, rub or gallop. ABDOMEN: Soft, nontender, nondistended, normoactive bowel sounds, no guarding, no rebound, no hepatosplenomegaly, no masses. EXTREMITIES: 2+ pulses, warm, well-perfused, no edema. NEUROLOGICAL: Cranial nerves II through XII grossly intact. Normal speech, gait not observed. PSYCH: Normal mood, normal affect. SKIN: Warm, dry, normal turgor, no rashes or lesions noted. LABS Laboratory Results - last 24 hr 11/23/18 11/23/18 11/23/18 14:46 14:46 14:46 WBC 5.3 RBC 4.40 Hgb 13.9 Hct 40.8 D MCV 92.6 MCH 31.5 MCHC 34.1 RDW 15.7 Plt Count 200 D MPV 8.6 Absolute Neuts (auto) 3.7 Neutrophils % 69.7 Lymphocytes % 19.8 Monocytes % 8.2 Eosinophils % 1.5 D Basophils % 0.8 Nucleated RBC % 0 PT with INR 12.00 INR 1.02 Sodium 139 Potassium 4.3 Chloride 104 Carbon Dioxide 28 Anion Gap 7 L BUN 27 H Creatinine 3.3 H Creat Clearance w eGFR 21.32 Random Glucose 98 Calcium 8.9 Total Bilirubin 0.7 AST 22 ALT 16 Alkaline Phosphatase 158 H Creatine Kinase 163 Creatine Kinase Index 0.6 CK-MB (CK-2) 1.1 Troponin I 0.04 Total Protein 7.8 Albumin 3.4 Triglycerides 169 H Cholesterol 173 Total LDL Cholesterol 112 H HDL Cholesterol 36 L Urine Color Urine Appearance Urine pH Ur Specific [place] Urine Protein Urine Glucose (UA) Urine Ketones Urine Blood Urine Nitrite Urine Bilirubin Urine Urobilinogen Ur Leukocyte Esterase Urine WBC (Auto) Urine RBC (Auto) Ur Epithelial Cells Urine Mucus Opiates Screen Methadone Screen Barbiturate Screen Phencyclidine Screen Ur Amphetamines Screen MDMA (Ecstasy) Screen Benzodiazepines Screen Cocaine Screen U Marijuana (THC) Screen Blood Type Antibody Screen 11/23/18 11/23/18 11/23/18 14:46 17:02 17:02 WBC RBC Hgb Hct MCV MCH MCHC RDW Plt Count MPV Absolute Neuts (auto) Neutrophils % Lymphocytes % Monocytes % Eosinophils % Basophils % Nucleated RBC % PT with INR INR Sodium Potassium Chloride Carbon Dioxide Anion Gap BUN Creatinine Creat Clearance w eGFR Random Glucose Calcium Total Bilirubin AST ALT Alkaline Phosphatase Creatine Kinase Creatine Kinase Index CK-MB (CK-2) Troponin I Total Protein Albumin Triglycerides Cholesterol Total LDL Cholesterol HDL Cholesterol Urine Color Yellow Urine Appearance Clear Urine pH 6.0 Ur Specific [place] 1.017 Urine Protein 2+ H Urine Glucose (UA) Negative Urine Ketones Negative Urine Blood 1+ H Urine Nitrite Negative Urine Bilirubin Negative Urine Urobilinogen Negative Ur Leukocyte Esterase Negative Urine WBC (Auto) <1 Urine RBC (Auto) 5 Ur Epithelial Cells Rare Urine Mucus Rare Opiates Screen Negative Methadone Screen Negative Barbiturate Screen Negative Phencyclidine Screen Positive A* Ur Amphetamines Screen Negative MDMA (Ecstasy) Screen Negative Benzodiazepines Screen Negative Cocaine Screen Negative U Marijuana (THC) Screen Positive A* Blood Type O POSITIVE Antibody Screen Negative 11/24/18 11/24/18 11/24/18 05:15 05:15 05:15 WBC 5.8 RBC 3.97 L Hgb 12.2 Hct 36.4 MCV 91.7 MCH 30.6 MCHC 33.4 RDW 15.4 Plt Count 194 MPV 8.8 Absolute Neuts (auto) 3.7 Neutrophils % 63.7 Lymphocytes % 26.0 D Monocytes % 8.9 Eosinophils % 0.9 Basophils % 0.5 Nucleated RBC % 0 PT with INR 12.40 INR 1.05 Sodium 138 Potassium 3.7 Chloride 106 Carbon Dioxide 26 Anion Gap 6 L BUN 26 H Creatinine 3.1 H Creat Clearance w eGFR 22.91 Random Glucose 87 Calcium 8.6 Total Bilirubin 0.8 AST 14 L ALT 14 Alkaline Phosphatase 131 H Creatine Kinase 164 Creatine Kinase Index 0.7 CK-MB (CK-2) 1.2 Troponin I 0.05 Total Protein 6.8 Albumin 2.9 L Triglycerides Cholesterol Total LDL Cholesterol HDL Cholesterol Urine Color Urine Appearance Urine pH Ur Specific [place] Urine Protein Urine Glucose (UA) Urine Ketones Urine Blood Urine Nitrite Urine Bilirubin Urine Urobilinogen Ur Leukocyte Esterase Urine WBC (Auto) Urine RBC (Auto) Ur Epithelial Cells Urine Mucus Opiates Screen Methadone Screen Barbiturate Screen Phencyclidine Screen Ur Amphetamines Screen MDMA (Ecstasy) Screen Benzodiazepines Screen Cocaine Screen U Marijuana (THC) Screen Blood Type Antibody Screen HOSPITAL COURSE: Date of Admission:11/23/18 Date of Discharge: 11/24/18 Discharge Summary Reason For Visit: HYPERTENSIVE EMERGENCY Condition: Guarded - Instructions Disposition: TRANSFER ACUTE CARE/OTHER HOSP - Home Medications Comprehensive Discharge Medication List: Ambulatory Orders Aspirin [ASA -] 81 mg PO DAILY 10/19/15 Amlodipine Besylate [Norvasc -] 10 mg PO DAILY #30 tablet 06/27/18 Atorvastatin Ca [Lipitor] 80 mg PO HS #30 tab 06/27/18 Famotidine [Pepcid] 20 mg PO DAILY 06/27/18 Labetalol HCl [Normodyne -] 400 mg PO TID 09/09/18
--- NOTE | 2018-11-24 15:43 | EKG ---
Test Reason : Blood Pressure : / mmHG Vent. Rate : 091 BPM Atrial Rate : 091 BPM P-R Int : 130 ms QRS Dur : 094 ms QT Int : 390 ms P-R-T Axes : 052 070 166 degrees QTc Int : 479 ms NORMAL SINUS RHYTHM POSSIBLE LEFT ATRIAL ENLARGEMENT LEFT VENTRICULAR HYPERTROPHY PROLONGED QT ABNORMAL ECG WHEN COMPARED WITH ECG OF 12-SEP-2018 02:07, NO SIGNIFICANT CHANGE WAS FOUND Confirmed by KRUNAL ARMSTRONG, ANNE ([id number]) on 11/24/2018 3:43:05 PM Referred By: Confirmed By:ANNE HECTOR MD
--- NOTE | 2018-11-30 08:23 | ECHO ---
Name: ELEANOR KENNEDY Exam:Adult Echocardiogram Study Date: 11/24/2018 08:20 AM Age: 38 yrs Reason For Study: R/O,ASHWINI DELCID Height: 71 in Weight: 168 lb BSA: 2.0 m2 MMode/2D Measurements & Calculations IVSd: 1.3 cm Ao root diam: 3.5 cm LVIDd: 5.5 cm LA dimension: 3.9 cm LVIDs: 4.0 cm LVPWd: 1.8 cm EDV(Teich): 150.4 ml LAV (MOD-bp): 86.0 ml ESV(Teich): 70.0 ml Doppler Measurements & Calculations MV E max nnamdi: 81.5 cm/sec MV A max nnamdi: 75.7 cm/sec MV dec slope: 614.3 cm/sec2 MV E/A: 1.1 AI P1/2t: 706.7 msec AI max nnamdi: 340.8 cm/sec AI max P.8 mmHg AI dec slope: 141.3 cm/sec2 MR max nnamdi: 455.8 cm/sec TR max nnamdi: 211.4 cm/sec MR max P.9 mmHg TR max P.0 mmHg Med Peak E' Nnamdi: 3.9 cm/sec Med E/e': 20.8 Lat Peak E' Nnamdi: 4.9 cm/sec Lat E/e': 16.6 Procedure A complete two-dimensional transthoracic echocardiogram was performed (2D, M-mode, Doppler and color flow Doppler). Left Ventricle There is moderate concentric left ventricular hypertrophy. Ejection Fraction = 30-35%. Left ventricul ar systolic function is severely reduced. There is severe global hypokinesis of the left ventricle. Right Ventricle The right ventricle is normal in size and function. Atria The left atrium is mildly dilated. Right atrial size is normal. Mitral Valve There is mild mitral regurgitation. Tricuspid Valve There is mild tricuspid regurgitation. Right ventricular systolic pressure is normal. Aortic Valve The aortic valve is trileaflet. No hemodynamically significant valvular aortic stenosis. Trace aortic regurgitation. Pulmonic Valve There is no pulmonic valvular regurgitation. Great Vessels The aortic root is normal size. Pericardium/Pleura There is no pericardial effusion. Interpretation Summary There is moderate concentric left ventricular hypertrophy. Left ventricular systolic function is severely reduced. There is severe global hypokinesis of the left ventricle. The right ventricle is normal in size and function. The left atrium is mildly dilated. There is mild mitral regurgitation. There is mild tricuspid regurgitation. Trace aortic regurgitation. MD Travon San 11/24/2018 01:45 PM
== END 2018-11-24 09:40 | disposition short-term general hospital (02) | DRG 45 ==
LOC: JER 14:09 → JERBED 17:43 → JICU 20:15
PROVIDERS: ADMIT Internal Medicine; ATTEND Internal Medicine
DX: I63.512 Cerebral infarction due to unspecified occlusion or stenosis of left middle cerebral artery (principal); G81.91 Hemiplegia, unspecified affecting right dominant side; G40.909 Epilepsy, unspecified, not intractable, without status epilepticus; F43.10 Post-traumatic stress disorder, unspecified; F17.210 Nicotine dependence, cigarettes, uncomplicated; I16.1 Hypertensive emergency; N18.4 Chronic kidney disease, stage 4 (severe); I12.9 Hypertensive chronic kidney disease with stage 1 through stage 4 chronic kidney disease, or unspecified chronic kidney disease
CPT/HCPCS: 36415; 70450-TC; 70551-TC; 71045-TC-FY; 80053; 80307; 81003; 81015; 82465; 82550; 82553; 83718; 83721; 84478; 84484; 85025; 85610; 86850; 86900; 86901; 87086; 93005; 93010; 93306-TC; 93880-TC; 99285-25; J1644; J7030

== ENCOUNTER 2018-12-19 13:09 | Emergency (ER) | payer OTHER ==
--- NOTE | 2018-12-19 13:16 | PDOC ---
Rapid Medical Evaluation Chief Complaint: Pain Time Seen by Provider: 12/19/18 13:11 Medical Evaluation: Allergies Allergy/AdvReac Type Severity Reaction Status Date / Time No Known Allergies Allergy Verified 12/19/18 13:11 12/19/18 13:11 I have performed a brief in-person evaluation of this patient. The patient presents with a chief complaint of abdominal pain x 2 days. subjective fever, took no medication so far Reports no nausea, vomiting, diarrhea or constipation. Pertinent physical exam findings NAD even and unlabored breathing +bs, non tender abdomen I have ordered the following labs, ekg, urinalysis The patient will proceed to the ED for further evaluation.
[2018-12-19 13:17] VITALS: BMI 22.3
[2018-12-19 14:19] LABS: BASO % 0.9 % (0-2.0); EOS % 0.3 % (0-4.5); HEMATOCRIT 37.4 % (35.4-49); HEMOGLOBIN 12.7 GM/dL (11.7-16.9); LYMPH % 21.2 % (8-40); MCH 30.7 pg (25.7-33.7); MCHC 33.8 g/dl (32.0-35.9); MEAN CELL VOLUME 90.9 fl (80-96); MEAN PLT VOLUME 7.8 fl (7.5-11.1); MONO % 19.9 % (3.8-10.2); NEUT % 57.7 % (42.8-82.8); PLATELET COUNT 213 K/MM3 (134-434); RBC 4.12 M/mm3 (4.00-5.60); RDW 14.7 % (11.9-15.9); WHITE BLOOD COUNT 4.4 K/mm3 (4.0-10.0)
[2018-12-19 14:37] LABS: URINE APPEARANCE CLEAR; URINE BILIRUBIN NEGATIVE (<2.0 mg/dL); URINE COLOR YELLOW; URINE GLUCOSE (UA) NEGATIVE (NEGATIVE); URINE KETONE NEGATIVE (NEGATIVE); URINE LEUK ESTERASE NEGATIVE (NEGATIVE); URINE NITRITE NEGATIVE (NEGATIVE); URINE PROTEIN 2+ (NEGATIVE); URINE UROBILINOGEN NEGATIVE mg/dL (0.2-1.0)
[2018-12-19 14:42] LABS: ALBUMIN 3.2 g/dl (3.4-5.0); ALK PHOS 122 U/L (45-117); ANION GAP 7 MMOL/L (8-16); BILIRUBIN,TOTAL 0.6 mg/dL (0.2-1); BLOOD UREA NITROGEN 30 mg/dL (7-18); CALCIUM 9.1 mg/dL (8.5-10.1); CHLORIDE 104 mmol/L (98-107); CO2 25 mmol/L (21-32); CREATININE 3.6 mg/dL (0.55-1.3); GLUCOSE,RANDOM 103 mg/dL (74-106); POTASSIUM 4.1 mmol/L (3.5-5.1); SGOT/AST 19 U/L (15-37); SGPT/ALT 10 U/L (13-61); SODIUM 136 mmol/L (136-145); TOT PROT 7.8 g/dl (6.4-8.2)
--- NOTE | 2018-12-19 15:51 | PDOC ---
History of Present Illness - General Chief Complaint: Pain Stated Complaint: VOMMIT / COLD SYMPTOMS Time Seen by Provider: 12/19/18 13:11 History Source: Patient - History of Present Illness Timing/Duration: reports: intermittent Pain Radiation: reports: RLQ Past History - Past Medical History Allergies/Adverse Reactions: Allergies Allergy/AdvReac Type Severity Reaction Status Date / Time No Known Allergies Allergy Verified 12/19/18 13:11 Home Medications: Ambulatory Orders Aspirin [ASA -] 81 mg PO DAILY 10/19/15 Amlodipine Besylate [Norvasc -] 10 mg PO DAILY #30 tablet 06/27/18 Atorvastatin Ca [Lipitor] 80 mg PO HS #30 tab 06/27/18 Famotidine [Pepcid] 20 mg PO DAILY 06/27/18 Labetalol HCl [Normodyne -] 400 mg PO TID 09/09/18 Cardiac Disorders: Yes COPD: No Dialysis: Yes (T,T,SAT) Disorders: Yes (RENAL FAILURE-PREPARING FOR DIALYSIS) HTN: Yes Psychiatric Problems: Yes (PTSD) Seizures: Yes (epilepsy) - Surgical History Abdominal Surgery: Yes (2 hernia repair) Cardiac Surgery: Yes (VALVE REPLACEMENT) - Immunization History Immunization Up to Date: Yes - Suicide/Smoking/Psychosocial Hx Smoking History: Current every day smoker Have you smoked in the past 12 months: No Number of Cigarettes Smoked Daily: 5 Information on smoking cessation initiated: No 'Breaking Loose' booklet given: 11/23/18 Hx Alcohol Use: No Drug/Substance Use Hx: Yes (MARIJUANA) Substance Use Type: None Review of Systems - Review of Systems Constitutional: Yes: Fever Respiratory: No: Shortness of Breath Cardiac (ROS): No: Chest Pain ABD/GI: No: Constipated, Diarrhea, Nausea, Rectal Bleeding, Vomiting, Tarry Stools : No: Dysuria, Flank Pain, Hematuria Neurological: No: Headache, Numbness, Tingling, Weakness *Physical Exam - Vital Signs Last Vital Signs Temp Pulse Resp BP Pulse Ox 99.1 F 93 H 17 161/105 H 96 12/19/18 13:11 12/19/18 13:11 12/19/18 13:11 12/19/18 13:11 12/19/18 13:11 - Physical Exam Comments: 12/19/18 15:53 Pt mostly somnolent in ED General Appearance: Yes: Appropriately Dressed. No: Apparent Distress HEENT: positive: Normal Voice Neck: positive: Supple Respiratory/Chest: positive: Lungs Clear, Normal Breath Sounds. negative: Respiratory Distress Cardiovascular: positive: Regular Rate, S1, S2 Gastrointestinal/Abdominal: positive: Normal Bowel Sounds, Soft, Other (poorly localized tenderness). negative: Pulsatile Mass, Distended, Guarding, Rebound Musculoskeletal: negative: CVA Tenderness Integumentary: positive: Dry, Warm Neurologic: positive: Fully Oriented, Alert, Motor Strength 5/5, Finger to Nose , Confused, Other (no drift, no ataxia, Marla intact) Moderate Sedation - Procedure Monitoring Vital Signs: Procedure Monitoring Vital Signs Temperature 99.1 F 12/19/18 13:11 Pulse Rate 93 H 12/19/18 13:11 Respiratory Rate 17 12/19/18 13:11 Blood Pressure 161/105 H 12/19/18 13:11 O2 Sat by Pulse Oximetry (%) 96 12/19/18 13:11 ED Treatment Course - LABORATORY CBC & Chemistry Diagram: 12/19/18 13:57 12/19/18 13:57 - ADDITIONAL ORDERS Additional order review: Laboratory Results 12/19/18 12/19/18 12/19/18 14:09 13:57 13:57 WBC 4.4 RBC 4.12 Hgb 12.7 Hct 37.4 MCV 90.9 MCH 30.7 MCHC 33.8 RDW 14.7 Plt Count 213 MPV 7.8 D Absolute Neuts (auto) 2.6 Neutrophils % 57.7 Lymphocytes % 21.2 Monocytes % 19.9 H D Eosinophils % 0.3 Basophils % 0.9 Nucleated RBC % 0 Sodium 136 Potassium 4.1 Chloride 104 Carbon Dioxide 25 Anion Gap 7 L BUN 30 H Creatinine 3.6 H Creat Clearance w eGFR 19.28 Random Glucose 103 Calcium 9.1 Total Bilirubin 0.6 AST 19 ALT 10 L Alkaline Phosphatase 122 H Total Protein 7.8 Albumin 3.2 L Urine Color Yellow Urine Appearance Clear Urine pH 5.0 Ur Specific [place] 1.021 Urine Protein 2+ H Urine Glucose (UA) Negative Urine Ketones Negative Urine Blood 2+ H Urine Nitrite Negative Urine Bilirubin Negative Urine Urobilinogen Negative Ur Leukocyte Esterase Negative 12/19/18 13:57 RBC 4.12 MCV 90.9 MCHC 33.8 RDW 14.7 MPV 7.8 D Neutrophils % 57.7 Lymphocytes % 21.2 Monocytes % 19.9 H D Eosinophils % 0.3 Basophils % 0.9 - RADIOLOGY Radiology Studies Ordered: Category Date Time Status ABDOMEN & PELVIS CT W/O CONTR [CT] Stat CT Scan 12/19/18 15:[address] WITHOUT CONTRAST [CT] Stat CT Scan 12/19/18 15:09 Ordered Medical Decision Making - Medical Decision Making 12/19/18 15:16 38-year-old male, history of epilepsy, PTSD, polysubstance abuse (+marijuana and PCP during last admission), HTN, CKD (previously on HD), s/p recent admission for R sided paraplegia in setting of elevated BP, w/ L middle cerebral artery acute infarct on MRI and was transferred to [facility] for management w/ no residual deficits per pt, multiple abd surgeries (including appy, pt poor historian), here w/ R lower abd pain x 2 days, waxes and wanes. Might have had fever 2 days ago but did no check. Is having BM and passing flatus. No BRBPR, melena, dysuria, n/v. See exam Lower abd pain s/p appy, doubt SBO as +BM/flatus, unlikely biliary source or pancreatitis, ? diverticulitis though no ttp to LLQ, unlikely UTI/pyelo, AAA considered given poorly controlled hypertension w/ sig elevated BP at triage (no pulsaltile mass on exam) -labs -? CT Elevated BP BP 161/105 Reports compliance w/ meds S/p recent admission for R paraplegia w/ L MCA acute infarct on MRI-transferred to [facility] w/ no residual deficits per pt No neuro sxs but appears confused and slow to answer questions during interview- ? sequela of recent infract but will get CTH today -manage BP in ED 12/19/18 17:05 CT head read as no acute pathology, old L infarct seen per radiology report. Dry CT abdomen/pelvis compared to study 08/28 and read as known dissection involving the thoracoabdominal aorta with interval development of small amount of non-specific free fluid along the rectovesical space, no definite retroperitoneal hemorrhage seen. Patient did not report history of aortic disease on earlier evaluation and was vague regarding his abd surgeries. 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 On reassessment now, patient reports that pain has since resolved and has been mostly somnolent in ED. Repeat blood pressure 133/91 without any intervention. Case was discussed with ED attending, who also reviewed labs and imaging and states given no acute findings on CT, that patient can be discharged to follow- up with his doctors this week. I had lengthy conversation with patient, explaining the importance of taking his blood pressure medication and following up closely with his PMD in order to prevent further complications. Patient discharged from ED in stable conditions. Strict return precautions given *DC/Admit/Observation/Transfer Diagnosis at time of Disposition: Elevated blood pressure reading Abdominal pain Qualifiers: Abdominal location: unspecified location Qualified Code(s): R10.9 - Unspecified abdominal pain - Discharge Dispostion Disposition: HOME Condition at time of disposition: Improved - Referrals - Patient Instructions Printed Discharge Instructions: DI for Abdominal Pain-Adult Additional Instructions: The cause of your abdominal pain is unclear as your CT scan did not reveal an obvious source. Your blood pressure was significantly elevated here. In order to prevent additional complications besides your stroke and abdominal dissection, you need to take your medications as directed. Please follow-up with your primary care doctor this week. If symptoms worsen, return to the ED as discussed today - Post Discharge Activity
[2018-12-19 17:42] LABS: AMORP URATES 2+ /hpf (NONE SEEN); EPI CELLS 1+ /HPF (FEW)
[2018-12-19 17:43] LABS: URINE BACTERIA 4+ /hpf (NONE SEEN)
[2018-12-19 17:51] VITALS: BP 133/91; PULSE 88; TEMP 98.7
== END 2018-12-19 18:36 | disposition home or self-care (01) ==
LOC: JER 13:09
DX: I10 Essential (primary) hypertension (principal); R10.30 Lower abdominal pain, unspecified; I25.10 Atherosclerotic heart disease of native coronary artery without angina pectoris; I13.11 Hypertensive heart and chronic kidney disease without heart failure, with stage 5 chronic kidney disease, or end stage renal disease; N18.6 End stage renal disease; Z95.5 Presence of coronary angioplasty implant and graft; G40.909 Epilepsy, unspecified, not intractable, without status epilepticus; F43.10 Post-traumatic stress disorder, unspecified; I69.851 Hemiplegia and hemiparesis following other cerebrovascular disease affecting right dominant side
CPT/HCPCS: 36415; 70450-TC; 74176-TC; 80053; 81003; 81015; 85025; 99282-25

== ENCOUNTER 2018-12-28 13:53 | Emergency (ER) | payer OTHER ==
--- NOTE | 2018-12-28 14:17 | PDOC ---
Rapid Medical Evaluation Medical Evaluation: Allergies Allergy/AdvReac Type Severity Reaction Status Date / Time No Known Allergies Allergy Verified 12/19/18 13:11 I have performed a brief in-person evaluation of this patient. The patient presents with a chief complaint of: hx of aortic dissection, epilepsy,PTSD, polysubstance abuse, HTN, CKD presents with R sided abd and back pain x 4 days; was just seen in ED last week and had CT head, CT A/P done Pertinent physical exam findings: Mild TTP RUQ, nondistended I have ordered the following: Labs The patient will proceed to the ED for further evaluation. 12/28/18 14:16
[2018-12-28 14:24] VITALS: TEMP 97.8; BMI 24.7
[2018-12-28 14:56] LABS: BASO % 0.9 % (0-2.0); EOS % 0.8 % (0-4.5); HEMATOCRIT 41.3 % (35.4-49); HEMOGLOBIN 14.1 GM/dL (11.7-16.9); LYMPH % 16.2 % (8-40); MCH 30.9 pg (25.7-33.7); MCHC 34.1 g/dl (32.0-35.9); MEAN CELL VOLUME 90.6 fl (80-96); MEAN PLT VOLUME 7.6 fl (7.5-11.1); NEUT % 71.1 % (42.8-82.8); PLATELET COUNT 311 K/MM3 (134-434); RBC 4.55 M/mm3 (4.00-5.60); RDW 14.4 % (11.9-15.9); WHITE BLOOD COUNT 7.6 K/mm3 (4.0-10.0)
[2018-12-28 15:40] LABS: ALBUMIN 3.2 g/dl (3.4-5.0); ALK PHOS 108 U/L (45-117); ANION GAP 5 MMOL/L (8-16); BILIRUBIN,TOTAL 1.1 mg/dL (0.2-1); BLOOD UREA NITROGEN 24 mg/dL (7-18); CALCIUM 9.4 mg/dL (8.5-10.1); CHLORIDE 102 mmol/L (98-107); CO2 26 mmol/L (21-32); CREATININE 3.1 mg/dL (0.55-1.3); GLUCOSE,RANDOM 88 mg/dL (74-106); POTASSIUM 4.4 mmol/L (3.5-5.1); SGOT/AST 17 U/L (15-37); SGPT/ALT 10 U/L (13-61); SODIUM 133 mmol/L (136-145); TOT PROT 8.6 g/dl (6.4-8.2)
--- NOTE | 2018-12-28 17:45 | PDOC ---
*Physical Exam - Vital Signs Last Vital Signs Temp Pulse Resp BP Pulse Ox 97.8 F 82 16 157/111 H 100 12/28/18 14:22 12/28/18 14:22 12/28/18 14:22 12/28/18 14:22 12/28/18 14:22 ED Treatment Course - LABORATORY CBC & Chemistry Diagram: 12/28/18 14:47 12/28/18 14:46 - ADDITIONAL ORDERS Additional order review: Laboratory Results 12/28/18 14:46 Sodium 133 L Potassium 4.4 Chloride 102 Carbon Dioxide 26 Anion Gap 5 L BUN 24 H Creatinine 3.1 H Creat Clearance w eGFR 22.91 Random Glucose 88 Calcium 9.4 Total Bilirubin 1.1 H AST 17 ALT 10 L Alkaline Phosphatase 108 Total Protein 8.6 H Albumin 3.2 L 12/28/18 14:47 RBC 4.55 MCV 90.6 MCHC 34.1 RDW 14.4 MPV 7.6 Neutrophils % 71.1 D Lymphocytes % 16.2 D Monocytes % 11.0 H Eosinophils % 0.8 D Basophils % 0.9 Medical Decision Making - Medical Decision Making 12/28/18 17:47 This is a 38 yo M with multiple medical problems including hypertension, hyperlipidemia, abdominal aortic dissection a year ago, opiate dependent, PCP abuse and renal failure present with complaint of epigastric and right upper quadrant pain for 4 days. no nausea, vomiting, fever, chills, diarrhea or constipation. Pt has had these symptoms in the past, prior CT negative Laboratory Tests 12/19/18 12/28/18 12/28/18 13:57 14:46 14:47 WBC 7.6 Hgb 14.1 Hct 41.3 Plt Count 311 D BUN 30 H 24 H Creatinine 3.6 H 3.1 H Pt signed out pending imaging Pt seen by Midlevel Provider under my direct supervision Ancillary studies pending I agree with plan as outlined by Midlevel Provider *DC/Admit/Observation/Transfer Diagnosis at time of Disposition: Abdominal pain - Discharge Dispostion Disposition: HOME Condition at time of disposition: Fair - Referrals - Patient Instructions Additional Instructions: Follow-up with her primary doctor within the next 5 days for reevaluation. Return to emergency department for any new or worsening symptoms. - Post Discharge Activity
--- NOTE | 2018-12-28 18:07 | PDOC ---
History of Present Illness - General Chief Complaint: Pain, Acute Stated Complaint: Pain/abdominal pain Time Seen by Provider: 12/28/18 14:16 History Source: Patient Exam Limitations: Clinical Condition - History of Present Illness Initial Comments: 12/28/18 18:01 Patient with history of comorbidities with past medical history of hypertension , hyperlipidemia, abdominal aortic dissection a year ago, opiate dependent. PCP abuse and renal failure present with complaint of epigastric and right upper quadrant pain for 4 days. Patient denies nausea, vomiting, fever, chills, diarrhea or constipation. Patient was seen and week ago for same symptoms and abdominal CT without contrast shows no acute pathology. Patient denies any other symptoms. Timing/Duration: other (4 days) Past History - Past Medical History Allergies/Adverse Reactions: Allergies Allergy/AdvReac Type Severity Reaction Status Date / Time No Known Allergies Allergy Verified 12/28/18 14:24 Home Medications: Ambulatory Orders Aspirin [ASA -] 81 mg PO DAILY 10/19/15 Amlodipine Besylate [Norvasc -] 10 mg PO DAILY #30 tablet 06/27/18 Atorvastatin Ca [Lipitor] 80 mg PO HS #30 tab 06/27/18 Famotidine [Pepcid] 20 mg PO DAILY 06/27/18 Labetalol HCl [Normodyne -] 400 mg PO TID 09/09/18 Cardiac Disorders: Yes COPD: No Dialysis: Yes (T,T,SAT) Disorders: Yes (RENAL FAILURE-PREPARING FOR DIALYSIS) HTN: Yes Psychiatric Problems: Yes (PTSD) Seizures: Yes (epilepsy) - Surgical History Abdominal Surgery: Yes (2 hernia repair) Cardiac Surgery: Yes (VALVE REPLACEMENT) - Immunization History Immunization Up to Date: Yes - Suicide/Smoking/Psychosocial Hx Smoking History: Unknown if ever smoked Have you smoked in the past 12 months: No Number of Cigarettes Smoked Daily: 5 Information on smoking cessation initiated: No 'Breaking Loose' booklet given: 11/23/18 Hx Alcohol Use: No Drug/Substance Use Hx: No Substance Use Type: None Review of Systems - Review of Systems Able to Perform ROS?: Yes Is the patient limited Telugu proficient: No Constitutional: No: Chills, Fever, Malaise HEENTM: No: Symptoms Reported Respiratory: No: Symptoms reported Cardiac (ROS): No: Symptoms Reported ABD/GI: Yes: See HPI, Abdominal cramping (epigastric , RUQ pain). No: Constipated, Diarrhea, Difficulty Swallowing, Nausea, Rectal Bleeding, Vomiting , Tarry Stools : No: Dysuria, Discharge, Frequency, Urgency All Other Systems: Reviewed and Negative *Physical Exam - Vital Signs Last Vital Signs Temp Pulse Resp BP Pulse Ox 97.8 F 82 16 157/111 H 100 12/28/18 14:22 12/28/18 14:22 12/28/18 14:22 12/28/18 14:22 12/28/18 14:22 - Physical Exam Comments: 12/28/18 18:03 GENERAL: Well developed, well nourished. Hypersomnolence in no acute distress. HEENT: Normocephalic, atraumatic. PERRLA, EOMI. No conjunctival pallor. Sclera are non-icteric. Moist mucous membranes. Oropharynx is clear. NECK: Supple. Full ROM. CARDIOVASCULAR: Regular rate and rhythm. No murmurs, rubs, or gallops. Distal pulses are 2+ and symmetric. PULMONARY: No evidence of respiratory distress. Lungs clear to auscultation bilaterally. No wheezing, rales or rhonchi. ABDOMINAL: Mild epigastric tenderness.Soft. Non-distended. No rebound or guarding. No organomegaly. Normoactive bowel sounds. MUSCULOSKELETAL Normal range of motion at all joints. SKIN: Warm and dry. Normal capillary refill. Multiple well-healed laparoscopic surgical incisions to abdomen NEUROLOGICAL: Alert, awake, appropriate. Gait is normal without ataxia. PSYCHIATRIC: Cooperative. Good eye contact. Appropriate mood General Appearance: Yes: Nourished, Appropriately Dressed. No: Apparent Distress Moderate Sedation - Procedure Monitoring Vital Signs: Procedure Monitoring Vital Signs Temperature 97.8 F 12/28/18 14:22 Pulse Rate 82 12/28/18 14:22 Respiratory Rate 16 12/28/18 14:22 Blood Pressure 157/111 H 12/28/18 14:22 O2 Sat by Pulse Oximetry (%) 100 12/28/18 14:22 ED Treatment Course - LABORATORY CBC & Chemistry Diagram: 12/28/18 14:47 12/28/18 14:46 - ADDITIONAL ORDERS Additional order review: Laboratory Results 12/28/18 14:46 Sodium 133 L Potassium 4.4 Chloride 102 Carbon Dioxide 26 Anion Gap 5 L BUN 24 H Creatinine 3.1 H Creat Clearance w eGFR 22.91 Random Glucose 88 Calcium 9.4 Total Bilirubin 1.1 H AST 17 ALT 10 L Alkaline Phosphatase 108 Total Protein 8.6 H Albumin 3.2 L 12/28/18 14:47 RBC 4.55 MCV 90.6 MCHC 34.1 RDW 14.4 MPV 7.6 Neutrophils % 71.1 D Lymphocytes % 16.2 D Monocytes % 11.0 H Eosinophils % 0.8 D Basophils % 0.9 - RADIOLOGY Radiology Studies Ordered: Category Date Time Status ABDOMEN US -LIMITED [US] Stat Ultrasound 12/28/18 17:07 Ordered Medical Decision Making - Medical Decision Making 12/28/18 18:05 Patient with history of multiple comorbidities presenting with complaint of epigastric pain for 4 days without nausea, vomiting or diarrhea. Patient was seen a week ago for same symptoms and abdominal CT without contrast given renal failure shows no acute pathology. Patient hypersomnolence when being examined. CBC and chemistry labs shows no acute pathology except elevated BUN/creatinine which is suspected given history of renal failure. Ultrasound of abdominal right upper quadrant ordered to rule out cholecystitis. Will consider abdominal CT without contrast if negative ultrasound. 12/28/18 19:14 Patient in U/S for abdominal U/S. Patient signed out to night ANGELICA García for follow-up care *DC/Admit/Observation/Transfer Diagnosis at time of Disposition: Abdominal pain Qualifiers: Abdominal location: epigastric Qualified Code(s): R10.13 - Epigastric pain - Discharge Dispostion Condition at time of disposition: Stable Decision to Admit order: No - Referrals - Patient Instructions - Post Discharge Activity
--- NOTE | 2018-12-28 19:32 | PDOC ---
*Physical Exam - Vital Signs Last Vital Signs Temp Pulse Resp BP Pulse Ox 97.8 F 87 18 170/111 H 100 12/28/18 14:22 12/28/18 18:23 12/28/18 18:23 12/28/18 18:23 12/28/18 18:23 ED Treatment Course - LABORATORY CBC & Chemistry Diagram: 12/28/18 14:47 12/28/18 14:46 - ADDITIONAL ORDERS Additional order review: Laboratory Results 12/28/18 14:46 Sodium 133 L Potassium 4.4 Chloride 102 Carbon Dioxide 26 Anion Gap 5 L BUN 24 H Creatinine 3.1 H Creat Clearance w eGFR 22.91 Random Glucose 88 Calcium 9.4 Total Bilirubin 1.1 H AST 17 ALT 10 L Alkaline Phosphatase 108 Total Protein 8.6 H Albumin 3.2 L 12/28/18 14:47 RBC 4.55 MCV 90.6 MCHC 34.1 RDW 14.4 MPV 7.6 Neutrophils % 71.1 D Lymphocytes % 16.2 D Monocytes % 11.0 H Eosinophils % 0.8 D Basophils % 0.9 Progress Note - Progress Note Progress Note: Received signout from MALENA Aquino. Briefly this is a 38-year-old male with past medical history of hypertension, hyperlipidemia, abdominal aortic dissection, opiate dependence, PCP abuse and renal failure presents with right upper quadrant and epigastric pain for 4 days. There are no associated symptoms. Patient with normal CAT scan 1 week ago for evaluation of similar symptoms. Ultrasound pending at present. Disposition pending Medical Decision Making - Medical Decision Making 12/28/18 19:32 Ultrasound as read by Dr. Diaz: No sonographic evidence of cholelithiasis or acute cholecystitis. There is no definite biliary tract dilatation. Dissection is seen involving the abdominal aorta is noted on prior CT studies. The right kidney demonstrates diffusely increase cortical echogenicity suggestive of medical renal disease. CT of the abdomen and pelvis without IV contrast. 12/28/18 22:01 CT of abdomen and pelvis as read by Dr. Diaz: In comparison to CT exam of 12/19/2018 interval development of small amount of left-sided pleural fluid which is layering posteriorly. The remainder of the exam demonstrates no gross interval change. Noticed again made of small amount of free intraperitoneal fluid within the rectovesicular space. Dissection of the abdominal aorta and partially imaged lower thoracic aorta is noted. 12/28/18 22:17 Repeat lung exam reveals clear lungs. Patient is refusing continued evaluation of his lungs is worse in the home. I'll discharge the patient home follow-up with his primary doctor for continued evaluation. *DC/Admit/Observation/Transfer Diagnosis at time of Disposition: Abdominal pain Qualifiers: Abdominal location: epigastric Qualified Code(s): R10.13 - Epigastric pain - Discharge Dispostion Disposition: HOME Condition at time of disposition: Fair - Referrals - Patient Instructions Additional Instructions: Follow-up with her primary doctor within the next 5 days for reevaluation. Return to emergency department for any new or worsening symptoms. - Post Discharge Activity
[2018-12-28 22:30] VITALS: BP 148/92; PULSE 85
--- NOTE | 2018-12-29 10:59 | EKG ---
Test Reason : Blood Pressure : / mmHG Vent. Rate : 080 BPM Atrial Rate : 080 BPM P-R Int : 134 ms QRS Dur : 096 ms QT Int : 400 ms P-R-T Axes : 048 078 212 degrees QTc Int : 461 ms NORMAL SINUS RHYTHM LEFT VENTRICULAR HYPERTROPHY WITH REPOLARIZATION ABNORMALITY ABNORMAL ECG WHEN COMPARED WITH ECG OF 23-NOV-2018 14:57, T WAVE INVERSION MORE EVIDENT IN INFERIOR LEADS Confirmed by KRUNAL ARMSTRONG, ANNE ([id number]) on 12/29/2018 10:59:06 AM Referred By: Confirmed By:ANNE HECTOR MD
== END 2018-12-28 23:08 | disposition home or self-care (01) ==
LOC: JER 13:53
DX: R10.13 Epigastric pain (principal); I10 Essential (primary) hypertension; E78.5 Hyperlipidemia, unspecified; F11.20 Opioid dependence, uncomplicated; N28.9 Disorder of kidney and ureter, unspecified; F43.10 Post-traumatic stress disorder, unspecified
CPT/HCPCS: 36415; 74176-TC; 76705-TC; 80053; 85025; 93005; 93010; 99283-25

== ENCOUNTER 2019-01-18 13:57 | Emergency (ER) | payer OTHER ==
[2019-01-18 14:20] VITALS: BMI 22.8
[2019-01-18] MEDS ORDERED: SODIUM CHLORIDE 1,000 ML IV STA (14:57)
[2019-01-18] MEDS ORDERED: ONDANSETRON 4 MG/2 ML VIAL IVPUSH ONE (14:57)
[2019-01-18] MEDS ORDERED: FAMOTIDINE 20 MG/50 ML IVPB 20 MG/50 ML MG IVPB ONE ×2 (14:57→14:59)
[2019-01-18] MEDS ORDERED: ACETAMINOPHEN 1000 MG/100 ML VIAL (NON FORMULARY) IVPB ONE (14:57)
--- NOTE | 2019-01-18 14:57 | PDOC ---
History of Present Illness - General Chief Complaint: Pain, Acute Stated Complaint: WEAKNESS Time Seen by Provider: 01/18/19 14:43 History Source: Patient - History of Present Illness Timing/Duration: reports: constant Abdominal Pain Onset Location: reports: periumbilical Past History - Past Medical History Allergies/Adverse Reactions: Allergies Allergy/AdvReac Type Severity Reaction Status Date / Time No Known Allergies Allergy Verified 12/28/18 14:24 Home Medications: Ambulatory Orders Aspirin [ASA -] 81 mg PO DAILY 10/19/15 Amlodipine Besylate [Norvasc -] 10 mg PO DAILY #30 tablet 06/27/18 Atorvastatin Ca [Lipitor] 80 mg PO HS #30 tab 06/27/18 Famotidine [Pepcid] 20 mg PO DAILY 06/27/18 Labetalol HCl [Normodyne -] 400 mg PO TID 09/09/18 Cardiac Disorders: Yes COPD: No Dialysis: Yes (T,T,SAT) Disorders: Yes (RENAL FAILURE-PREPARING FOR DIALYSIS) HTN: Yes Psychiatric Problems: Yes (PTSD) Seizures: Yes (epilepsy) - Surgical History Abdominal Surgery: Yes (2 hernia repair) Cardiac Surgery: Yes (VALVE REPLACEMENT) - Immunization History Immunization Up to Date: Yes - Suicide/Smoking/Psychosocial Hx Smoking History: Current every day smoker Have you smoked in the past 12 months: Yes Number of Cigarettes Smoked Daily: 3 Information on smoking cessation initiated: No 'Breaking Loose' booklet given: 11/23/18 Hx Alcohol Use: No Drug/Substance Use Hx: No Substance Use Type: None Review of Systems - Review of Systems Constitutional: No: Chills, Fever Respiratory: No: Shortness of Breath Cardiac (ROS): No: Chest Pain ABD/GI: Yes: Nausea, Vomiting, Abdominal cramping. No: Constipated, Diarrhea : No: Dysuria, Flank Pain, Hematuria *Physical Exam - Vital Signs Last Vital Signs Temp Pulse Resp BP Pulse Ox 97.9 F 88 16 163/100 99 01/18/19 14:00 01/18/19 14:00 01/18/19 14:00 01/18/19 14:00 01/18/19 14:00 - Physical Exam Comments: 01/18/19 15:03 Hypersomnelent in ED General Appearance: Yes: Appropriately Dressed HEENT: positive: Normal Voice Neck: positive: Supple Respiratory/Chest: positive: Lungs Clear, Normal Breath Sounds. negative: Respiratory Distress Cardiovascular: positive: Regular Rate, S1, S2 Gastrointestinal/Abdominal: positive: Tender (poorly localized), Soft. 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 No change in bowel movements, melena, bright blood per rectum, fever or chills. Patient's last ED visit for abdominal pain was 12/28/2018 and had US and CT done which were negative for acute intra-abdominal pathology with re-demonstration of his aortic dissection. Also noted was a small left pleural effusion. Of note, patient has no chest pain or shortness of breath at this time see exam Recurrent abd pain Etiology unclear as no specific source on multiple w/u in ED, CT/US unremarkable on visit > 3 weeks ago Hypertensive w/ poorly localized ttp to abd -pain control -zofran -IVF -?imaging justyna given known h/o aortic dissection (s/p surgery,), though low suspicion that this is source -reassess 01/18/19 17:56 Labs only remarkable for K 5.5, cr 2.8, near baseline of 3. EKG with almost diffuse T-wave inversion, largely unchanged when compared to EKG from 12/2018 as d/w ED attg. 1 troponin here pending. Reports no chest pain or shortness of breath. Patient now reports that abdominal pain has since resolved and requesting food at this time. BP persistently elevated here. Patient reports compliance with medication. Will give home dose of BP meds. At this point patient was signed out to MALENA Porter pending reassessment and disposition 01/19/19 07:45 *DC/Admit/Observation/Transfer Diagnosis at time of Disposition: Abdominal pain Qualifiers: Abdominal location: generalized Qualified Code(s): R10.84 - Generalized abdominal pain - Discharge Dispostion Disposition: HOME Condition at time of disposition: Stable - Referrals Referrals: Grant Kapoor MD [Staff Physician] - Tariq Robles MD [Staff Physician] - - Patient Instructions Additional Instructions: You given a referral for both GI (Dr Kapoor) and renal. It is important that you see a renal doctor as soon as possible for your kidney disease. Please follow-up with Dr. Travis Potter this week. Also follow-up with your weapons mechanic and PMD Return to ER for worsening of symptoms - Post Discharge Activity
[2019-01-18] MEDS ORDERED: ACETAMINOPHEN INJECTION 100 ML IVPB ONE (14:59)
[2019-01-18] MEDS ORDERED: ONDANSETRON 4 MG/2 ML VIAL ONE (14:59)
--- NOTE | 2019-01-18 15:04 | PDOC ---
*Physical Exam - Vital Signs Last Vital Signs Temp Pulse Resp BP Pulse Ox 97.9 F 88 16 163/100 99 01/18/19 14:00 01/18/19 14:00 01/18/19 14:00 01/18/19 14:00 01/18/19 14:00 ED Treatment Course - LABORATORY CBC & Chemistry Diagram: 01/18/19 14:58 01/18/19 14:58 Medical Decision Making - Medical Decision Making 01/18/19 15:03 Pt seen by Midlevel Provider under my direct supervision Ancillary studies reviewed Pt to be re assessed by INDUSTRI[employer] COMM[employer]OUNDS[employer] German I agree with plan as outlined by Midlevel Provider *DC/Admit/Observation/Transfer Diagnosis at time of Disposition: Abdominal pain - Discharge Dispostion Disposition: HOME Condition at time of disposition: Stable - Referrals Referrals: Grant Kapoor MD [Staff Physician] - Tariq Robles MD [Staff Physician] - - Patient Instructions Additional Instructions: You given a referral for both GI (Dr Kapoor) and renal. It is important that you see a renal doctor as soon as possible for your kidney disease. Please follow-up with Dr. Travis Potter this week. Also follow-up with your rigging loft mechanic and PMD Return to ER for worsening of symptoms - Post Discharge Activity
[2019-01-18 15:13] LABS: BASO % 0.6 % (0-2.0); EOS % 0.1 % (0-4.5); HEMATOCRIT 39.4 % (35.4-49); HEMOGLOBIN 13.2 GM/dL (11.7-16.9); LYMPH % 8.9 % (8-40); MCH 29.7 pg (25.7-33.7); MCHC 33.4 g/dl (32.0-35.9); MEAN CELL VOLUME 88.9 fl (80-96); MONO % 10.3 % (3.8-10.2); NEUT % 80.1 % (42.8-82.8); PLATELET COUNT 233 K/MM3 (134-434); RBC 4.43 M/mm3 (4.00-5.60); RDW 15.2 % (11.9-15.9); WHITE BLOOD COUNT 10.7 K/mm3 (4.0-10.0)
[2019-01-18 15:46] LABS: ALBUMIN 3.2 g/dl (3.4-5.0); ALK PHOS 129 U/L (45-117); ANION GAP 7 MMOL/L (8-16); BLOOD UREA NITROGEN 34 mg/dL (7-18); CALCIUM 9.2 mg/dL (8.5-10.1); CHLORIDE 100 mmol/L (98-107); CO2 25 mmol/L (21-32); CREATININE 2.8 mg/dL (0.55-1.3); GLUCOSE,RANDOM 99 mg/dL (74-106); LIPASE 64 U/L (73-393); POTASSIUM 5.5 mmol/L (3.5-5.1); SGOT/AST 22 U/L (15-37); SGPT/ALT 10 U/L (13-61); SODIUM 132 mmol/L (136-145); TOT PROT 9.1 g/dl (6.4-8.2)
[2019-01-18] MEDS ORDERED: LABETALOL HCL 200 MG TABLET (FP) PO ONE (19:10)
[2019-01-18] MEDS ORDERED: amLODIPine BESYLATE 10 MG TABLET (FP) PO ONE (19:10)
[2019-01-18] MEDS ORDERED: LABETALOL HCL 100 MG TABLET (FP) ONE (20:10)
[2019-01-18] MEDS ORDERED: amLODIPine BESYLATE 5 MG TABLET (FP) ONE (20:11)
[2019-01-18 20:20] VITALS: PULSE 84; TEMP 98.2
--- NOTE | 2019-01-18 21:33 | PDOC ---
*Physical Exam - Vital Signs Last Vital Signs Temp Pulse Resp BP Pulse Ox 98.2 F 84 18 167/114 H 98 01/18/19 20:19 01/18/19 20:19 01/18/19 20:19 01/18/19 20:20 01/18/19 20:19 ED Treatment Course - LABORATORY CBC & Chemistry Diagram: 01/18/19 14:58 01/18/19 14:58 - ADDITIONAL ORDERS Additional order review: Laboratory Results 01/18/19 01/18/19 18:30 14:58 Sodium 132 L Potassium 5.5 H Chloride 100 Carbon Dioxide 25 Anion Gap 7 L BUN 34 H Creatinine 2.8 H Creat Clearance w eGFR 25.77 Random Glucose 99 Calcium 9.2 Total Bilirubin 1.0 AST 22 ALT 10 L Alkaline Phosphatase 129 H Creatine Kinase 93 160 Creatine Kinase Index 0.6 CK-MB (CK-2) < 1.0 Troponin I < 0.02 < 0.02 Total Protein 9.1 H Albumin 3.2 L Lipase 64 L 01/18/19 14:58 RBC 4.43 MCV 88.9 MCHC 33.4 RDW 15.2 MPV 8.0 Neutrophils % 80.1 Lymphocytes % 8.9 D Monocytes % 10.3 H Eosinophils % 0.1 D Basophils % 0.6 - Medications Given in the ED: ED Medications Discontinued Medications Generic Name Dose Route Start Last Admin Trade Name [place] PRN Reason Stop Dose Admin Acetaminophen 1,000 mg 01/18/19 14:57 01/18/19 15:08 Ofirmev Injection - IVPB 01/18/19 14:58 1,000 mg ONCE ONE Administration Amlodipine Besylate 10 mg 01/18/19 19:10 01/18/19 20:20 Norvasc - PO 01/18/19 19:11 10 mg ONCE ONE Administration Famotidine/Sodium Chloride 20 mg in 50 mls @ 100 mls/hr 01/18/19 14:57 15:23 Pepcid 20 Mg Premixed Ivpb - IVPB 01/18/19 15:26 100 mls/hr ONCE ONE Administration Sodium Chloride 1,000 mls @ 1,000 mls/hr 01/18/19 14:57 01/18/19 15:07 Normal Saline - IV 01/18/19 15:56 1,000 mls/hr ASDIR STA Administration Labetalol HCl 400 mg 01/18/19 19:10 01/18/19 20:20 Normodyne - PO 01/18/19 19:11 400 mg ONCE ONE Administration Ondansetron HCl 4 mg 01/18/19 14:57 01/18/19 15:08 Zofran Injection IVPUSH 01/18/19 14:58 4 mg ONCE ONE Administration Medical Decision Making - Medical Decision Making Patient signed out to me by MALENA Desir Patient repeat trop negative Utox positive for PCP and marijuana; patient admits to using marijuana though denies PCP use Currently mentions feeling better than before; denies CP, SOB Repeat BP was 141/92 Patient advised to f/u with PCP Stable for dc 01/18/19 21:32 *DC/Admit/Observation/Transfer Diagnosis at time of Disposition: Abdominal pain Qualifiers: Abdominal location: generalized Qualified Code(s): R10.84 - Generalized abdominal pain - Discharge Dispostion Disposition: HOME Condition at time of disposition: Stable - Referrals Referrals: Grant Kapoor MD [Staff Physician] - Tariq Robles MD [Staff Physician] - - Patient Instructions Additional Instructions: You given a referral for both GI (Dr Kapoor) and renal. It is important that you see a renal doctor as soon as possible for your kidney disease. Please follow-up with Dr. Travis Potter this week. Also follow-up with your director council on aging PMD Return to ER for worsening of symptoms - Post Discharge Activity
[2019-01-18 21:37] VITALS: BP 141/92
[2019-01-18 21:56] LABS: COCAINE, UR NEGATIVE ng/ml (CUTOFF=300); METHADONE, UR NEGATIVE ng/ml (CUTOFF=300); OPIATES, URI NEGATIVE ng/ml (CUTOFF=300); URINE AMPHETAMINES NEGATIVE ng/ml (CUTOFF=500); URINE BARBITURATES NEGATIVE ng/ml (CUTOFF=200); URINE BENZODIAZEPINES NEGATIVE ng/ml (CUTOFF=200)
[2019-01-18 21:58] LABS: PHENCYCLIDINE,URINE POSITIVE ng/ml (CUTOFF=25)
--- NOTE | 2019-01-19 16:38 | EKG ---
Test Reason : Blood Pressure : / mmHG Vent. Rate : 084 BPM Atrial Rate : 084 BPM P-R Int : 124 ms QRS Dur : 090 ms QT Int : 404 ms P-R-T Axes : 063 087 254 degrees QTc Int : 477 ms NORMAL SINUS RHYTHM MINIMAL VOLTAGE CRITERIA FOR LVH, MAY BE NORMAL VARIANT SEPTAL INFARCT , AGE UNDETERMINED ABNORMAL ECG WHEN COMPARED WITH ECG OF 28-DEC-2018 16:20, NO SIGNIFICANT CHANGE WAS FOUND Confirmed by KRUNAL ARMSTRONG, ANNE ([id number]) on 01/19/2019 4:37:52 PM Referred By: Confirmed By:ANNE HECTOR MD
== END 2019-01-18 23:05 | disposition home or self-care (01) ==
LOC: JER 13:57
PROC: 3E033GC Introduction of Other Therapeutic Substance into Peripheral Vein, Percutaneous Approach (ICD-10-PCS; principal; 2019-01-18)
PROC: 3E0337Z Introduction of Electrolytic and Water Balance Substance into Peripheral Vein, Percutaneous Approach (ICD-10-PCS; 2019-01-18)
DX: R10.84 Generalized abdominal pain (principal); I12.9 Hypertensive chronic kidney disease with stage 1 through stage 4 chronic kidney disease, or unspecified chronic kidney disease; F17.210 Nicotine dependence, cigarettes, uncomplicated; N18.9 Chronic kidney disease, unspecified; F43.10 Post-traumatic stress disorder, unspecified; G40.909 Epilepsy, unspecified, not intractable, without status epilepticus; Z79.82 Long term (current) use of aspirin; Z95.2 Presence of prosthetic heart valve; Z86.73 Personal history of transient ischemic attack (TIA), and cerebral infarction without residual deficits
CPT/HCPCS: 36415; 80053; 80307; 82550; 82553; 83690; 84484; 85025; 93005; 93010; 96365; 96375; 99283-25; J0131; J7030